=== PATIENT | male | born 1950 | race Two or more races ===

== ENCOUNTER 2021-05-13 10:43 | Outpatient (REF) | payer OTHER, SELFPAY ==
--- NOTE | 2021-05-13 10:48 | MHC.AU.P13 ---
Hearing Instrument Problem Date of Visit: 05/13/21 Right Ear: Bioinformatics Team Member: Phonak Model: AUDEO M50-R Serial Number: [id number] Repair Warranty: 07/02/2022 Loss and Damage Warranty: 07/02/2022 Battery Size: Rechargeable Color: GRAPHITE GILMORE Any Commodity Buyer: 2M Type of Dome: SMALL OPEN Type of Wax Guard: CERUSHIELD Dispensed By: [facility] Date of Fittin04/20/2019 Left Ear: Bioinformatics Team Member: Phonak Model: AUDEO M50-R Serial Number: [id number] Repair Warranty: 07/02/2022 Loss and Damage Warranty: 07/02/2022 Battery Size: Rechargeable Color: GRAPHITE GILMORE Any Commodity Buyer: 2M Type of Dome: SMALL OPEN Type of Wax Guard: CERUSHIELD Dispensed By: [facility] Date of Fittin04/20/2019 Follow-Up Summary: Aids dropped off - reported static/not working properly. Aids not charging properly in office. Both aids sent to [employer] for in warranty repairs - patient case in repair drawer. Call when in. Recommendations: Recommendations: Patient will be contacted when materials have arrived. Diagnosis Code(s): Primary Diagnosis: H90.3 Bilateral Sensorineural Hearing Loss Signature: Provider: JONAH Reddy-HIS
== END 2021-05-13 10:44 | disposition home or self-care (01) ==
LOC: HO.HAP 10:43
PROVIDERS: Visit Provider Internal Medicine
DX: Z13.89 Encounter for screening for other disorder (principal)

== ENCOUNTER 2021-06-17 10:13 | Outpatient (REF) | payer OTHER, SELFPAY ==
[2021-06-17 10:33] LABS: MANUAL DIFF FLAG NO
[2021-06-17 10:43] LABS: Basophils Absolute Auto 0.1 X10*3/uL (0.0-0.2); Mean Platelet Volume 10.8 fL (9.4-12.4)
[2021-06-17 10:53] LABS: Eosinophils Absolute Auto 0.7 X10*3/uL (0.0-0.4); Hematocrit 35.9 % (42.0-52.0); Hemoglobin 11.6 g/dl (14.0-18.0); Imm Gran Abs Auto 0.01 X10*3/uL (0.00-0.03); Imm Gran Pct Auto 0.2 % (0.0-0.4); Lymphocytes Absolute Auto 1.9 X10*3/uL (1.2-4.9); Lymphocytes Percent Auto 31.1 % (20-40); Mean Corpuscular HGB Conc 32.3 g/dl (31.0-36.0); Mean Corpuscular Hemoglobin 27.7 pg (27.0-33.0); Mean Corpuscular Volume 85.7 fL (80.0-98.0); Monocytes Absolute Auto 0.6 X10*3/uL (0.1-1.2); Monocytes Percent Auto 10.4 % (2-11); Neutrophils Absolute Auto 2.9 x10*3/uL (2.0-8.3); Neutrophils Percent Auto 46.3 % (45-73); Platelet Count 207 X10*3/uL (160-400); Red Blood Count 4.19 X10*6/uL (4.60-5.80); Red Cell Distribution Width 14.8 % (11.0-16.0); White Blood Count 6.2 X10*3/uL (4.8-10.8)
[2021-06-17 11:21] LABS: Alanine Aminotransferase 30 U/L (0-40); Albumin Level 3.9 g/dL (3.5-5.0); Alkaline Phosphatase 70 U/L (39-117); Anion Gap 11 (12-20); Aspartate Amino Transferase 35 U/L (5-37); Blood Urea Nitrogen 17 mg/dL (9-16); Calcium 9.2 mg/dL (8.4-10.2); Carbon Dioxide 30 mmol/L (22-29); Chloride 107 mmol/L (96-108); Cholesterol 159 mg/dL; Estimated Glomerular Filt Rate > 60; Glucose Random 100 mg/dL (60-115); HDL Cholesterol 43 mg/dL; LDL Cholesterol Calculated 101 mg/dl; Potassium 4.8 mmol/L (3.3-5.1); Sodium 143 mmol/L (135-145); Total Protein 7.2 g/dL (6.5-8.0); Triglycerides 76 mg/dL
[2021-06-17 11:40] LABS: ~HepC Num1 0.29 S/CO (0.00-0.79); ~Hepatitis C Antibody Nonreactive (Nonreactive)
[2021-06-17 11:42] LABS: HBS Num1 0.35 mIU/mL (0-7.99); ~Hepatitis B Surface Antibody NONREACTIVE (Nonreactive)
[2021-06-17 11:51] LABS: HBc Num1 0.12 S/CO (0.00-0.79); HBsAGNum1 0.15 S/CO (0.00-0.99); Hepatitis B Core Antibody Nonreactive (Nonreactive); Hepatitis B Surface Antigen Negative (Negative)
== END 2021-06-17 10:14 | disposition home or self-care (01) ==
LOC: HO.LAB 10:13
PROVIDERS: PCP Internal Medicine; Visit Provider Internal Medicine
DX: C18.9 Malignant neoplasm of colon, unspecified (principal); E66.01 Morbid (severe) obesity due to excess calories; Z68.36 Body mass index [BMI] 36.0-36.9, adult; K70.30 Alcoholic cirrhosis of liver without ascites
CPT/HCPCS: 36415; 80053; 80061; 85025; 86704; 86706; 86803; 87340

== ENCOUNTER 2021-06-24 10:59 | Outpatient (REF) | payer OTHER, SELFPAY ==
--- NOTE | 2021-06-26 08:37 | MHC.AU.HFU ---
Hearing Instrument Follow-Up- Binaural Date of Visit: 06/24/21 Right Ear: Inletter: Phonak Model: AUDEO M50-R Serial Number: [id number] Repair Warranty: 07/02/2022 Loss and Damage Warranty: 07/02/2022 Battery Size: Rechargeable Color: GRAPHITE GILMORE Vibrator Equipment Tester: 2M Type of Dome: SMALL OPEN Type of Wax Guard: CERUSHIELD Dispensed By: [facility] Date of Fittin04/20/2019 Left Ear: Inletter: Phonak Model: AUDEO M50-R Serial Number: [id number] Repair Warranty: 07/02/2022 Loss and Damage Warranty: 07/02/2022 Battery Size: Rechargeable Color: GRAPHITE GILMORE Vibrator Equipment Tester: 2M Type of Dome: SMALL OPEN Type of Wax Guard: CERUSHIELD Dispensed By: [facility] Date of Fittin04/20/2019 Follow-Up Summary: Patient arrived to burr picker his repaired hearing aids. He reports they sound better after repair. Patient got a new phone since they went out for repair, but he decided he would rather keep things simple and not pair them to the phone. His new phone is a flip phone, and it is unlikely that it is compatible. He reports that the hearing aid manager nicu has been lost. Recommendations: Recommendations: [employer] will be contacted to send a replacement manager nicu. Patient will be contacted when it arrives. Diagnosis Code(s): Primary Diagnosis: H90.3 Bilateral Sensorineural Hearing Loss Signature: Provider: Akira Vieira, DOLORES-A
== END 2021-06-24 11:00 | disposition home or self-care (01) ==
LOC: HO.HAP 10:59
PROVIDERS: Visit Provider Internal Medicine
DX: Z13.89 Encounter for screening for other disorder (principal)

== ENCOUNTER 2021-06-29 12:13 | Emergency (ER) | payer OTHER, SELFPAY ==
[2021-06-29 12:56] VITALS: BP 153/63; PULSE 86; RESP 18; TEMP 36.6; O2SAT 97; BMI 5352.0
[2021-06-29 14:40] LABS: MANUAL DIFF FLAG NO
[2021-06-29 14:42] LABS: Basophils Percent Auto 0.6 % (0-2); Eosinophils Absolute Auto 0.8 X10*3/uL (0.0-0.4); Eosinophils Percent Auto 11.9 % (0-4); Hematocrit 35.3 % (42.0-52.0); Hemoglobin 11.3 g/dl (14.0-18.0); Imm Gran Abs Auto 0.01 X10*3/uL (0.00-0.03); Imm Gran Pct Auto 0.1 % (0.0-0.4); Lymphocytes Absolute Auto 1.9 X10*3/uL (1.2-4.9); Mean Corpuscular Hemoglobin 27.3 pg (27.0-33.0); Mean Corpuscular Volume 85.3 fL (80.0-98.0); Mean Platelet Volume 10.4 fL (9.4-12.4); Monocytes Absolute Auto 0.7 X10*3/uL (0.1-1.2); Monocytes Percent Auto 10.9 % (2-11); Neutrophils Absolute Auto 3.3 x10*3/uL (2.0-8.3); Neutrophils Percent Auto 48.5 % (45-73); Platelet Count 210 X10*3/uL (160-400); Red Blood Count 4.14 X10*6/uL (4.60-5.80); White Blood Count 6.8 X10*3/uL (4.8-10.8)
[2021-06-29 14:59] LABS: Anion Gap 11 (12-20); Blood Urea Nitrogen 19 mg/dL (9-16); Calcium 9.3 mg/dL (8.4-10.2); Carbon Dioxide 27 mmol/L (22-29); Chloride 108 mmol/L (96-108); Creatinine Clr Calc Pharmacy -3.9; Estimated Glomerular Filt Rate 52; Glucose Random 73 mg/dL (60-115); Potassium 4.1 mmol/L (3.3-5.1); Sodium 142 mmol/L (135-145)
--- NOTE | 2021-06-29 17:26 | ED.SKABFB ---
HPI - Skin/Abscess/Foreign Bdy General Chief complaint: Skin/Abscess/Foreign Body Stated complaint: Infection on leg Time Seen by Provider: 06/29/21 17:20 Source: patient, family and print graphic designer Mode of arrival: ambulatory Limitations: language barrier History of Present Illness HPI narrative: 70 yo male with history of gout, HTN, GERD, arthritis here with complaints of left lower leg swelling, redness for several weeks. The patient tells me that he initially had an abrasion to the left lower leg from his compression stockings taking into his leg. He then started itching of the leg and this caused some additional abrasions. He was started on doxycycline on June 18 for a 10 day course. He then was seen at urgent care on June 27 and started on Bactrim and cephalexin. The patient tells me he has taken 5 doses of Bactrim. Unfortunately his cephalexin was not available the pharmacy and he has not started this yet. He denies any fevers or chills. He is here because he feels like the rash is unchanged. He denies any fevers, chills, pain to the leg. Related Data Previous Rx's Medication Instructions Recorded cephalexin 500 mg capsule 500 mg PO TID #21 cap 06/29/21 Allergies Allergy/AdvReac Type Severity Reaction Status Date / Time No Known Allergies Allergy Verified 06/29/21 12:55 Review of Systems Review of Systems: Yes all other systems are reviewed and are negative Constitutional: Constitutional: Reports no additional constitutional complaints, Denies body ache(s), Denies chills, Denies fever(s), Denies headache(s) and Denies weakness Eyes: Eyes: Reports no additional eye complaints and Denies change in vision ENT: Reports system reviewed and no additional complaints, except as documented, Denies dizziness, Denies headache(s), Denies nasal congestion, Denies nasal discharge and Denies neck pain Cardiovascular: Cardiovascular: Reports no additional cardiovascular complaints, Denies chest pain, Reports leg edema and Denies dyspnea Respiratory: Respiratory: Reports no additional respiratory complaints, Denies cough and Denies dyspnea Gastrointestinal: Gastrointestinal: Reports no additional gastrointestinal complaints, Denies abdominal pain, Denies diarrhea, Denies nausea and Denies vomiting Genitourinary: Genitourinary: Denies urinary incontinence Musculoskeletal: Musculoskeletal: Reports no additional musculoskeletal complaints, Denies back pain, Denies arthralgias, Denies joint swelling, Denies neck pain, Denies numbness and Denies tingling Integumentary/Breasts: Skin/Breast: Reports system reviewed and no additional complaints, except as docu and Denies rash Neurologic: Reports system reviewed and no additional complaints, except as documented, Denies Abnormal speech present, Denies dizziness, Denies headache(s), Denies numbness, Denies tingling and Denies weakness PMF Past Medical History Attestation statement: The following information was validated with the patient. Source: old records reviewed and nursing notes reviewed Medical History Arthritis GERD (gastroesophageal reflux disease) Gout HTN (hypertension) Social History Social History Advance Directives: No Advance Directives Information Provided: No Physical Exam Vital Signs: Vital Signs: Last Vital Signs Temp 97.8 F 06/29/21 12:56 Pulse 86 06/29/21 12:56 Resp 18 06/29/21 12:56 BP 153/63 H 06/29/21 12:56 Pulse Ox 97 06/29/21 12:56 BMI result Body Mass Index 5352.0 Const: General: cooperative, healthy appearing, comfortable and no acute distress Orientation/consciousness: patient oriented x3 Limitations: no limitations HENMT: Head: Yes normal to inspection Ears: hearing grossly normal bilaterally General nose exam: Normal external nose present Face and sinus: Yes normal facial exam Mouth: Normal oral and palatal mucosa present Throat: Yes posterior oropharynx normal Eyes: General: appearance normal, both eyes and all related structures Pupils: Equal, round and reactive pupils present Neck: Neck: Yes normal visual inspection Chest: Chest palpation & inspection: normal inspection of the chest Resp: Effort & Inspection: normal respiratory effort Auscultation: clear to auscultation bilaterally Cardio: Rate: regular rate Rhythm: regular rhythm Peripheral pulses: Peripheral pulses 2+ throughout GI: Inspection: Yes normal to inspection Palpation (GI): Soft to palpation and nontender Auscultation: normal bowel sounds Back/Spine/Pelvis: Thoracic/Lumbar Spine: thoracic and lumbar spine normal to inspection Skin: General skin exam: no rashes or lesions noted Neuro: General: patient oriented x3, no focal motor deficits and normal sensation to monofilament Cranial nerves: Yes Equal, round and reactive pupils present Cognition (Neuro): normal cognition Speech: No Abnormal speech present Gait exam (Neuro): Normal gait present Motor exam (neuro): 5/5 motor strength present throughout Extrem: Other: General: Yes normal to inspection Course Course Course Narrative: 70 yo male here with LLE cellulitis currently on Bactrim. Patient is here because he feels like the cellulitis is not improved. He has only taken 5 doses. He denies any pain or fevers or chills. He was supposed to also to start taking cephalexin but he tells me he had problems taking this up at the pharmacy. I looked at cellulitis. It is mild. There is no calf tenderness or swelling of the calf. The cellulitis is not circumferential. There is no fever or leukocytosis. I recommended the patient start cephalexin. We discussed wound care at home with topical mupirocin seen and dressings. Reviewed worrisome signs and symptoms of when to return to the emergency department. Comfortable discharge home. MDM - Skin/Abscess/Foreign Bdy Medical Records Attestation: I reviewed the patient's medical records. Lab Data Attestation: I reviewed the patient's lab results. Result diagrams: 06/29/21 14:32 06/29/21 14:32 Labs: Lab Results 06/29/21 06/29/21 Range/Units 14:32 14:32 WBC 6.8 (4.8-10.8) X10*3/uL RBC 4.14 L (4.60-5.80) X10*6/uL Hgb 11.3 L (14.0-18.0) g/dl Hct 35.3 L (42.0-52.0) % MCV 85.3 (80.0-98.0) fL MCH 27.3 (27.0-33.0) pg MCHC 32.0 (31.0-36.0) g/dl RDW 15.0 (11.0-16.0) % Plt Count 210 (160-400) X10*3/uL MPV 10.4 (9.4-12.4) fL Immature Gran % (Auto) 0.1 (0.0-0.4) % Neut % (Auto) 48.5 (45-73) % Lymph % (Auto) 28.0 (20-40) % [place] % (Auto) 10.9 (2-11) % Eos % (Auto) 11.9 H (0-4) % Baso % (Auto) 0.6 (0-2) % Lymph # (Auto) 1.9 (1.2-4.9) X10*3/uL [place] # (Auto) 0.7 (0.1-1.2) X10*3/uL Eos # (Auto) 0.8 H (0.0-0.4) X10*3/uL Baso # (Auto) 0.0 (0.0-0.2) X10*3/uL Abs Immat Gran (auto) 0.01 (0.00-0.03) X10*3/uL Absolute Neuts (auto) 3.3 (2.0-8.3) x10*3/uL Absolute Nucleated RBC 0.000 (0.0-0.012) X10*3/uL Nucleated RBC % (auto) 0.0 (0.0-0.2) /100WBC Sodium 142 (135-145) mmol/L Potassium 4.1 (3.3-5.1) mmol/L Chloride 108 (96-108) mmol/L Carbon Dioxide 27 (22-29) mmol/L Anion Gap 11 L (12-20) BUN 19 H (9-16) mg/dL Creatinine 1.35 (0.5-1.4) mg/dL Estim Creat Clear Calc -3.9 Estimated GFR 52 Random Glucose 73 (60-115) mg/dL Calcium 9.3 (8.4-10.2) mg/dL Discharge Plan Discharge Clinical Impression: Cellulitis Patient Disposition: Home, Self-Care Instructions: Cellulitis (ED) Additional Instructions: Change dressing daily with topical antibiotic ointment Start cephelexin tomorrow. Continue Septra as discussed Return for increasing redness, swelling, fever >100.4 Prescriptions: New cephalexin 500 mg capsule 500 mg PO TID Qty: 21 RF: 0 Referrals: Atif Sanchez MD [Primary Care Provider] - 2 days Interventions: ED Discharge Assessment Last Done: 06/29/21 17:59 Discharge Date/Time: 06/29/21 17:59 Print Language: Mongolian
[2021-06-29] MEDS: Bacitracin Oint 14 GM TUBE 1 APPL TOPICAL (17:49)
[2021-06-29] MEDS: cephALEXin 500 MG CAPSULE PO (17:49)
== END 2021-06-29 17:59 | disposition home or self-care (01) ==
PROVIDERS: Emergency Provider Emergency Medicine; PCP Internal Medicine
DX: L03.116 Cellulitis of left lower limb (principal); I10 Essential (primary) hypertension; Z87.891 Personal history of nicotine dependence
CPT/HCPCS: 36415; 80048; 85025; 99283

== ENCOUNTER 2021-07-03 06:51 | Emergency (ER) | payer OTHER, SELFPAY ==
[2021-07-03 07:23] VITALS: BP 131/60; PULSE 85; RESP 16; TEMP 36.7; O2SAT 98; BMI 37.8
--- NOTE | 2021-07-03 07:59 | ED_ITS ---
HPI - General Adult General Chief complaint: Wound/Laceration Stated complaint: l leg infection Time Seen by Provider: 07/03/21 07:56 Source: patient Limitations: no limitations History of Present Illness HPI narrative: This is a 70-year-old male who complains of an area of infection to his left medial leg. This was 1st noted last month and the patient was initially treated with doxycycline for 10 days. He was then treated with Bactrim and Keflex. Skin issue it originally begun with some abrasions to the area after the patient had worn compression stockings. Patient was seen here on June 29 and photograph of lesion is present in the record. The patient had been advised to take the Keflex for the 10 days, as he had not been able to start taking it yet, also use topical antibiotic ointment. The patient states that the rash is not any better and has been weeping some. The patient denies any fever. He denies any calf or foot swelling. Patient denies any history of diabetes. Related Data Previous Rx's Medication Instructions Recorded cephalexin 500 mg capsule 500 mg PO TID #21 cap 06/29/21 miconazole nitrate 2 % topical 1 appl TOPICAL BID 10 Days #42.5 g 07/03/21 cream (Antifungal Cream (miconazole)) sulfamethoxazole 800 1 tab PO BID #14 tab 07/03/21 mg-trimethoprim 160 mg tablet (Bactrim DS) triamcinolone acetonide 0.1 % 1 appl TOPICAL BID 7 Days #30 g 07/03/21 topical cream Allergies Allergy/AdvReac Type Severity Reaction Status Date / Time No Known Allergies Allergy Verified 06/29/21 12:55 Review of Systems Constitutional: Constitutional: Denies fever(s) Cardiovascular: Cardiovascular: Denies dyspnea Respiratory: Respiratory: Denies cough and Denies dyspnea Gastrointestinal: Gastrointestinal: Denies abdominal pain and Denies vomiting Integumentary/Breasts: Skin/Breast: Denies swelling and Reports rash Neurologic: Denies Sensory deficit (Neuro) [facility] Past Medical History Medical History Arthritis GERD (gastroesophageal reflux disease) Gout HTN (hypertension) Social History Social History Alcohol intake: unknown Patient Tobacco Use Status: Tobacco use Unknown Use of substances other than those prescribed or required for medical reasons: Unknown Advance Directives: No Advance Directives Information Provided: No Physical Exam Vital Signs: Vital Signs: Last Vital Signs Temp 98.0 F 07/03/21 07:23 Pulse 85 07/03/21 07:23 Resp 16 07/03/21 07:23 BP 131/60 07/03/21 07:23 Pulse Ox 98 07/03/21 07:23 BMI result Body Mass Index 37.8 Const: General: cooperative, no acute distress and alert Orientation/consciousness: patient oriented x3 HENMT: Head: Yes normal to inspection Eyes: General: appearance normal, both eyes and all related structures Eyelids: Yes eyelids normal Conjunctivae: conjunctivae normal Pupils: Equal, round and reactive pupils present Neck: Neck: Yes normal visual inspection and Yes supple Chest: Chest palpation & inspection: normal inspection of the chest Resp: Effort & Inspection: normal respiratory effort Auscultation: clear to auscultation bilaterally Cardio: Rate: regular rate Rhythm: regular rhythm Heart sounds: S1 normal heart sound present, S2 normal heart sound present, no gallops, no murmurs and no rubs GI: Palpation (GI): Soft to palpation, nontender and Other GI palpation fi ndings present (Non-distended) Auscultation: normal bowel sounds Skin: Other: Rectangular area confluent erythema surrounded by mild blotchy erythema to the left medial leg. Appears cellulitic, but there may be a component of contact dermatitis given the rectangular shape. Some weeping evident. No calf swelling or tenderness, no pedal edema General skin exam: no rashes or lesions noted Neuro: General: patient oriented x3, no focal motor deficits and CN's II-XI intact bilaterally Cranial nerves: Yes Equal, round and reactive pupils present Cognition (Neuro): normal cognition Motor exam (neuro): 5/5 motor strength present throughout Sensory Exam: No Sensory deficit (Neuro) Extrem: General: Yes normal to inspection and Yes no pedal edema Psych: Appearance: grossly normal Affect: normal affect Medical Decision Making MDM Narrative Medical decision making narrative: Patient with persistent erythema to his left lower leg, and a rectangular pattern, started when he wore compression stockings, began as an abrasion. Patient was wearing a very moist dressing, which may be from weeping of rash, although I did not see any full eye or fluid coming from the wound once it was undressed. Given that this rash has not responded to antibiotics and given its shape, which is rectangular, it suggests possible contact dermatitis. The moisture also might suggest that the patient has an element of fungal infection. Will add Lotrimin and triamcinolone creams and continue antibiotics, recommended the patient keep the area uncovered and as dry as possible. Area of cellulitis has not dramatically changed since his last visit, per the photograph from June 29. No fever. Patient does not appear ill Discharge Plan Discharge Clinical Impression: Cellulitis, Fungal dermatitis Patient Disposition: Home, Self-Care Instructions: Cellulitis (ED), Skin Yeast Infection (ED) Additional Instructions: Try to keep the area of rash uncovered so that it can dry out. Return for any worsened symptoms such as increased redness, fever. Both the primary care physician for re-evaluation in 4-5 days. Start Bactrim again and take for 7 days. Use the anti fungal cream and steroid cream as prescribed Prescriptions: New miconazole nitrate [Antifungal Cream (miconazole)] 2 % cream 1 appl topical BID 10 Days Qty: 42.5 RF: 0 triamcinolone acetonide 0.1 % cream 1 appl topical BID 7 Days Qty: 30 RF: 1 sulfamethoxazole-trimethoprim [Bactrim DS] 800-160 mg tablet 1 tab PO BID Qty: 14 RF: 0 No Action cephalexin 500 mg capsule 500 mg PO TID Qty: 21 RF: 0 Interventions: ED Discharge Assessment Last Done: 07/03/21 08:32 Discharge Date/Time: 07/03/21 08:32
== END 2021-07-03 08:32 | disposition home or self-care (01) ==
PROVIDERS: Emergency Provider Emergency Medicine; PCP Internal Medicine
DX: L03.116 Cellulitis of left lower limb (principal); B36.9 Superficial mycosis, unspecified; Z79.899 Other long term (current) drug therapy
CPT/HCPCS: 99283

== ENCOUNTER 2021-07-08 10:22 | Outpatient (REF) | payer OTHER, SELFPAY | END 2021-07-08 10:23 | disposition home or self-care (01) | LOC: HO.HAP 10:22 | PROVIDERS: Visit Provider Internal Medicine | DX: Z13.89 Encounter for screening for other disorder (principal) ==

== ENCOUNTER 2021-07-23 08:02 | Outpatient (REF) | payer OTHER, SELFPAY ==
[2021-07-23 08:19] LABS: MANUAL DIFF FLAG NO
[2021-07-23 08:47] LABS: Basophils Percent Auto 0.5 % (0-2); Eosinophils Absolute Auto 0.7 X10*3/uL (0.0-0.4); Eosinophils Percent Auto 11.7 % (0-4); Hematocrit 35.4 % (42.0-52.0); Hemoglobin 11.3 g/dl (14.0-18.0); Imm Gran Abs Auto 0.02 X10*3/uL (0.00-0.03); Imm Gran Pct Auto 0.3 % (0.0-0.4); Lymphocytes Absolute Auto 1.9 X10*3/uL (1.2-4.9); Lymphocytes Percent Auto 33.2 % (20-40); Mean Corpuscular HGB Conc 31.9 g/dl (31.0-36.0); Mean Corpuscular Hemoglobin 27.3 pg (27.0-33.0); Mean Corpuscular Volume 85.5 fL (80.0-98.0); Mean Platelet Volume 10.5 fL (9.4-12.4); Monocytes Absolute Auto 0.6 X10*3/uL (0.1-1.2); Monocytes Percent Auto 10.9 % (2-11); Neutrophils Absolute Auto 2.5 x10*3/uL (2.0-8.3); Neutrophils Percent Auto 43.4 % (45-73); Platelet Count 196 X10*3/uL (160-400); Red Blood Count 4.14 X10*6/uL (4.60-5.80); Red Cell Distribution Width 14.7 % (11.0-16.0); White Blood Count 5.8 X10*3/uL (4.8-10.8)
[2021-07-23 09:21] LABS: Alanine Aminotransferase 40 U/L (0-40); Albumin Level 3.8 g/dL (3.5-5.0); Alkaline Phosphatase 74 U/L (39-117); Anion Gap 9 (12-20); Aspartate Amino Transferase 35 U/L (5-37); Bilirubin Total 0.9 mg/dL (0.0-1.0); Blood Urea Nitrogen 21 mg/dL (9-16); Calcium 9.3 mg/dL (8.4-10.2); Carbon Dioxide 31 mmol/L (22-29); Chloride 107 mmol/L (96-108); Cholesterol 158 mg/dL; Estimated Glomerular Filt Rate > 60; Glucose Fasting 98 mg/dL (60-99); HDL Cholesterol 46 mg/dL; LDL Cholesterol Calculated 100 mg/dl; Potassium 4.4 mmol/L (3.3-5.1); Sodium 143 mmol/L (135-145); Total Protein 6.9 g/dL (6.5-8.0); Triglycerides 64 mg/dL
[2021-07-23 09:35] LABS: HBS Num1 3.03 mIU/mL (0-7.99); HBsAGNum1 0.23 S/CO (0.00-0.99); Hepatitis B Surface Antigen Negative (Negative); ~HepC Num1 0.31 S/CO (0.00-0.79); ~Hepatitis B Surface Antibody NONREACTIVE (Nonreactive); ~Hepatitis C Antibody Nonreactive (Nonreactive)
[2021-07-23 09:43] LABS: HBc Num1 0.12 S/CO (0.00-0.79); Hepatitis B Core Antibody Nonreactive (Nonreactive)
[2021-07-23 09:44] LABS: Ferritin 10 ng/mL (20-250)
[2021-07-23 09:47] LABS: Folate > 20.0 ng/mL (> or = 4.0); Vitamin B12 558 pg/mL (200-900)
== END 2021-07-23 08:03 | disposition home or self-care (01) ==
LOC: HO.LAB 08:02
PROVIDERS: PCP Nurse Practitioner Family; Visit Provider Nurse Practitioner Family
DX: Z12.5 Encounter for screening for malignant neoplasm of prostate (principal); F10.11 Alcohol abuse, in remission; I10 Essential (primary) hypertension; E78.00 Pure hypercholesterolemia, unspecified; K76.9 Liver disease, unspecified
CPT/HCPCS: 36415; 80053; 80061; 82607; 82728; 82746; 84153; 85025; 86704; 86706; 86803; 87340

== ENCOUNTER 2021-11-18 09:11 | Outpatient (REF) | payer OTHER, SELFPAY ==
[2021-11-18 09:29] LABS: MANUAL DIFF FLAG NO
[2021-11-18 09:59] LABS: INTERNATIONAL NORM RATIO 1.1 (0.9-1.1); Prothrombin Time 12.2 SEC (9.9-13.0)
[2021-11-18 10:06] LABS: Basophils Absolute Auto 0.1 X10*3/uL (0.0-0.2); Basophils Percent Auto 0.8 % (0-2); Eosinophils Absolute Auto 0.5 X10*3/uL (0.0-0.4); Eosinophils Percent Auto 8.1 % (0-4); Hematocrit 35.4 % (42.0-52.0); Hemoglobin 11.2 g/dl (14.0-18.0); Imm Gran Abs Auto 0.01 X10*3/uL (0.00-0.03); Imm Gran Pct Auto 0.2 % (0.0-0.4); Lymphocytes Absolute Auto 2.2 X10*3/uL (1.2-4.9); Lymphocytes Percent Auto 32.8 % (20-40); Mean Corpuscular HGB Conc 31.6 g/dl (31.0-36.0); Mean Corpuscular Hemoglobin 26.7 pg (27.0-33.0); Mean Corpuscular Volume 84.3 fL (80.0-98.0); Mean Platelet Volume 10.9 fL (9.4-12.4); Monocytes Absolute Auto 0.7 X10*3/uL (0.1-1.2); Monocytes Percent Auto 9.8 % (2-11); Neutrophils Absolute Auto 3.2 x10*3/uL (2.0-8.3); Neutrophils Percent Auto 48.3 % (45-73); Platelet Count 232 X10*3/uL (160-400); Red Cell Distribution Width 15.1 % (11.0-16.0); White Blood Count 6.7 X10*3/uL (4.8-10.8)
[2021-11-18 10:19] LABS: Alanine Aminotransferase 69 U/L (0-40); Albumin Level 3.7 g/dL (3.5-5.0); Alkaline Phosphatase 101 U/L (39-117); Aspartate Amino Transferase 54 U/L (5-37); Bilirubin Direct 0.3 mg/dL (0.0-0.5); Bilirubin Total 0.8 mg/dL (0.0-1.0); Total Protein 7.1 g/dL (6.5-8.0)
[2021-11-20 13:32] LABS: Alpha Fetoprotein 1.7 ng/mL (<6.1)
== END 2021-11-18 09:12 | disposition home or self-care (01) ==
LOC: HO.LAB 09:11
PROVIDERS: PCP Internal Medicine; Visit Provider Internal Medicine
DX: K70.30 Alcoholic cirrhosis of liver without ascites (principal)
CPT/HCPCS: 36415; 80076; 82105; 85025; 85610

== ENCOUNTER 2021-11-25 07:51 | Outpatient (REF) | payer OTHER, SELFPAY ==
--- NOTE | ~2021-11-25 | US_ITS ---
EXAMINATION: US ABDOMEN COMPLETE CLINICAL INFORMATION: Cirrhosis. COMPARISON: None TECHNIQUE: Real-time imaging of the abdominal viscera. FINDINGS: PANCREAS: Not well visualized due to bowel gas ABDOMINAL AORTA: Not well visualized due to bowel gas INFERIOR VENA CAVA: Not well visualized due to bowel gas LIVER: The liver has a irregular scalloped contour suggestive of cirrhosis. Liver echotexture is normal. There is an ill-defined hyperechoic area in the periportal region with geographic margins, question representing fatty infiltration. There is no biliary duct dilatation. GALLBLADDER: Gallbladder is normal in size. There is a gallstone in the gallbladder. There is adenomyomatosis of the gallbladder wall. COMMON BILE DUCT: Normal in caliber measuring 0.2 cm in diameter. RIGHT KIDNEY: There is a 8 x 6 x 6 mm cyst exophytic to the midpole. No renal stone.. No hydronephrosis. The kidney measures 11.6 cm in maximum dimension. LEFT KIDNEY: There is a 3 x 6 mm stone in the midpole. No hydronephrosis or focal parenchymal lesions. The kidney measures 12.1 cm in maximum dimension. SPLEEN: Normal. The spleen measures 9.7 cm in maximum dimension. FREE FLUID: None. US/US abdomen complete IMPRESSION: Cirrhotic-appearing liver. Ill-defined echogenic area in the periportal region with geographic margins questionable for focal fatty infiltration. Confirmation with liver MRI should be considered clinically indicated. Gallstone and adenomyomatosis of the gallbladder wall. Right renal cyst. Small left renal stone. Nonvisualization of the pancreas, aorta and IVC.
== END 2021-11-25 07:52 | disposition home or self-care (01) ==
LOC: HO.US 07:51
PROVIDERS: PCP Internal Medicine; Visit Provider Internal Medicine
DX: K70.30 Alcoholic cirrhosis of liver without ascites (principal)
CPT/HCPCS: 76700

== ENCOUNTER 2022-01-06 06:03 | Day surgery (SDC) | payer OTHER, SELFPAY ==
[2021-12-31 11:33] VITALS: BMI 37.2
--- NOTE | 2022-01-05 11:42 | HO.ANESPROP2 ---
HPI - Anesthesia Eval Consult details Narrative: 71yo F for Colonoscopy PMFSH Active Problems Active Problems: All Active Problems (Updated 12/31/21 @ 11:04 by Zahira Mcarthur RN) Encounter to establish care (Acute) Chronic liver disease (Acute) Prostate cancer screening (Acute) Colon cancer screening (Acute) History of colon cancer (Acute) Fungal dermatitis (Acute) History of smoking (Acute) Gout (Acute) GERD (gastroesophageal reflux disease) (Acute) HTN (hypertension) (Acute) Past Medical History Medical History Arthritis Cirrhosis History of colon cancer PUD (peptic ulcer disease) Family History Family History Mother No problems noted. Father Prostate cancer Family/Other Mental health disorder Substance use disorder Surgical History Surgical History History of colon surgery History of gastric ulcer History of tooth extraction Hx of colonoscopy Social History Social History Housing: House Alcohol intake: former Patient Tobacco Use Status: Former Tobacco user Tobacco use type: Cigarette e-Cigarette/Vaping Use: Never Used Second Hand Smoke Exposure: No Use of substances other than those prescribed or required for medical reasons: No Are you DNR?: No Advance Directives: No Advance Directives Information Provided: Yes service: No Current occupational status: retired Cognitive needs: Yes Hearing needs: No Vision needs: Yes Meds Allergies Allergy/AdvReac Type Severity Reaction Status Date / Time No Known Allergies Allergy Verified 11/04/21 10:54 Exam Exam Date and Time: January 05, 2022 1142 Height,Weight and Vital Signs: Height 5 ft 4 in Weight 98.43 kg Pertinent Lab Results Pertinent Lab Results: Laboratory Tests 07/23/21 11/18/21 08:11 09:20 WBC 6.7 Hgb 11.2 L Hct 35.4 L Plt Count 232 Sodium 143 Potassium 4.4 Chloride 107 Carbon Dioxide 31 H BUN 21 H Creatinine 1.08 Laboratory Tests 11/18/21 09:20 Total Bilirubin 0.8 Direct Bilirubin 0.3 AST 54 H ALT 69 H Alkaline Phosphatase 101 D Total Protein 7.1 Albumin 3.7 Narrative Narrative: US abdomen complete 11/2021 IMPRESSION: Cirrhotic-appearing liver. Ill-defined echogenic area in the periportal region with geographic margins questionable for focal fatty infiltration. Confirmation with liver MRI should be considered clinically indicated. Gallstone and adenomyomatosis of the gallbladder wall. Right renal cyst. Small left renal stone. Nonvisualization of the pancreas, aorta and IVC. Assessment and Plan Assessment Anesthesia Assessment: Chart Reviewed
[2022-01-06 06:20] VITALS: BMI 36.0
[2022-01-06 06:30] VITALS: BP 127/69; PULSE 61; RESP 16; TEMP 36.3; O2SAT 99
[2022-01-06] MEDS: Lactated Ringers 1,000 ML 100 ML IVCONT (06:39)
--- NOTE | 2022-01-06 07:14 | P.CONAN_ITS ---
[facility] Active Problems Active Problems: All Active Problems (Updated 12/31/21 @ 11:04 by Zahira Mcarthur RN) Encounter to establish care (Acute) Chronic liver disease (Acute) Prostate cancer screening (Acute) Colon cancer screening (Acute) History of colon cancer (Acute) Fungal dermatitis (Acute) History of smoking (Acute) Gout (Acute) GERD (gastroesophageal reflux disease) (Acute) HTN (hypertension) (Acute) Past Medical History Medical History Arthritis Cirrhosis History of colon cancer PUD (peptic ulcer disease) Family History Family History Mother No problems noted. Father Prostate cancer Family/Other Mental health disorder Substance use disorder Surgical History Surgical History History of colon surgery History of gastric ulcer History of tooth extraction Hx of colonoscopy Social History Social History Housing: House Alcohol intake: former Patient Tobacco Use Status: Former Tobacco user Tobacco use type: Cigarette e-Cigarette/Vaping Use: Never Used Second Hand Smoke Exposure: No Use of substances other than those prescribed or required for medical reasons: No Are you DNR?: No Advance Directives: No Advance Directives Information Provided: Yes service: No Current occupational status: retired Cognitive needs: Yes Hearing needs: No Vision needs: Yes Meds Allergies Allergy/AdvReac Type Severity Reaction Status Date / Time No Known Allergies Allergy Verified 11/04/21 10:54 Active Medications: Current Medications Lactated Ringer's (Lr) 1,000 mls @ 100 mls/hr IVCONT .Q10H JAKE Last Admin: 01/06/22 06:39 Dose: 100 mls/hr Sodium Biphosphate/Sodium Phosphate (Sodium Phosphate,Martin-Dibasic 133 Ml Enema) 133 ml AR ONCE PRN PRN Reason: Poor Colonoscopy Prep Results Exam Exam Date and Time: January 06, 2022 0714 Height,Weight and Vital Signs: Height 5 ft 4 in Weight 95.254 kg Last Vital Signs Temp 97.3 F 01/06/22 06:30 Pulse 61 01/06/22 06:30 Resp 16 01/06/22 06:30 BP 127/69 01/06/22 06:30 Pulse Ox 99 01/06/22 06:30 O2 Del Method 01/06/22 06:30 Airway Mallampati Class: IV TM Dist: >3cm Neck ROM: Full Denture: Upper and Lower Heart: rrr Lungs: clear Assessment and Plan Anesthetic Plan Anesthetic Plan: MAC: Disposition: Standard PACU
[2022-01-06 08:25] VITALS: BP 120/67; PULSE 73; RESP 18; TEMP 37.6; O2SAT 98
--- NOTE | 2022-01-06 08:28 | PM.OP ---
Brief Operative Note Date of Service: 01/06/22 Pre-op diagnosis: Screening Post-op diagnosis: other (Diverticulosis) Procedure: Colonoscopy to the cecum Surgeon: Ezio Garcia Anesthesia: MAC Was an Optimization Manager used for this Procedure?: No Estimated blood loss (mL): 0 Pathology: none sent Condition: stable Disposition: PACU
[2022-01-06 08:40] VITALS: BP 144/70; PULSE 73; RESP 18; TEMP 37.2; O2SAT 98
--- NOTE | 2022-01-06 10:09 | OP_ITS ---
SURGEON: Ezio Garcia MD INDICATIONS: The patient presents for followup of colorectal cancer screening and personal history of colon cancer. Full consent has been obtained from him for this, including risks of bleeding and perforation. PREOPERATIVE DIAGNOSIS: POSTOPERATIVE DIAGNOSIS: PROCEDURE PERFORMED: Colonoscopy to the cecum. ESTIMATED BLOOD LOSS: COMPLICATIONS: ANESTHESIA: Monitored anesthesia care. ASSISTANTS: SPECIMENS: PREOPERATIVE DIAGNOSES: Colorectal cancer screening and personal history of colon cancer. POSTOPERATIVE DIAGNOSES: Colorectal cancer screening and personal history of colon cancer, occasional diverticulosis, normal anastomosis, internal hemorrhoids. DESCRIPTION OF PROCEDURE: The patient was placed in the left lateral decubitus position. The digital rectal exam revealed no abnormalities. The Olympus video pediatric colonoscope was entered into the rectum and advanced easily to the cecum. Once in the cecum, I did identify normal-appearing cecal pouch with appendiceal orifice and a normal-appearing ileocecal valve. There was transillumination of light deep in the right lower quadrant. The entire cecum was well visualized and appeared normal. The scope was slowly withdrawn assessing all mucosal surfaces carefully. Preparation was excellent. His anastomosis was seen between 40 and 50 cm. This area appeared normal. I did not visualize any sign of polyps, colitis, nor angiodysplasia. There were occasional diverticula proximal to the anastomosis. In the rectum, scope was retroflexed visualizing small internal hemorrhoids, but no other pathology. The rectal mucosa appeared normal. The scope was straightened and withdrawn from the patient. He tolerated the procedure well and was returned to the recovery area in stable condition. IMPRESSION: 1. Normal anastomosis. 2. Occasional diverticulosis. 3. Internal hemorrhoids. PLAN: Given his history of colon cancer, I would recommend a repeat colonoscopy in 3 years. He was advised to see me in 1 year for followup in regard to his underlying liver disease. The recent ultrasound was consistent with cirrhosis in relation to his previous alcohol, but there was no sign of any liver mass. Laboratories including alpha fetoprotein level, CBC with platelet count, liver profile, and PT with INR were all basically normal other than some very slight abnormalities. This has been discussed with his nephew, Juan Carlos. MD ERNESTO Meehan/ARLEEN / [phone]
== END 2022-01-06 09:20 | disposition home or self-care (01) ==
PROVIDERS: PCP Internal Medicine; Visit Provider Internal Medicine
PROC: 0DJD8ZZ Inspection of Lower Intestinal Tract, Via Natural or Artificial Opening Endoscopic (ICD-10-PCS; CPT 45378; principal; 2022-01-06 07:30)
DX: Z12.11 Encounter for screening for malignant neoplasm of colon (principal); Z85.038 Personal history of other malignant neoplasm of large intestine; Z98.0 Intestinal bypass and anastomosis status; K57.30 Diverticulosis of large intestine without perforation or abscess without bleeding; K64.8 Other hemorrhoids; I10 Essential (primary) hypertension; K70.30 Alcoholic cirrhosis of liver without ascites; F10.11 Alcohol abuse, in remission; Z87.11 Personal history of peptic ulcer disease; Z87.891 Personal history of nicotine dependence
CPT/HCPCS: G0105

== ENCOUNTER 2022-03-30 08:54 | Outpatient (RCR) | payer OTHER, SELFPAY | END 2022-04-02 09:13 | disposition home or self-care (01) | LOC: HO.WCC 08:54 | PROVIDERS: PCP Internal Medicine; Visit Provider Physician Assistant | DX: T25.221D Burn of second degree of right foot, subsequent encounter (principal); I10 Essential (primary) hypertension; T31.0 Burns involving less than 10% of body surface | CPT/HCPCS: 99212 ==

== ENCOUNTER 2022-03-31 09:13 | Outpatient (REF) | payer OTHER, SELFPAY ==
[2022-03-31 09:34] LABS: Hematocrit 37.4 % (42.0-52.0); Hemoglobin 11.8 g/dl (14.0-18.0); Mean Corpuscular HGB Conc 31.6 g/dl (31.0-36.0); Mean Corpuscular Hemoglobin 26.8 pg (27.0-33.0); Mean Corpuscular Volume 84.8 fL (80.0-98.0); Mean Platelet Volume 9.8 fL (9.4-12.4); Platelet Count 201 X10*3/uL (160-400); Red Blood Count 4.41 X10*6/uL (4.60-5.80); Red Cell Distribution Width 15.2 % (11.0-16.0); White Blood Count 6.3 X10*3/uL (4.8-10.8)
[2022-03-31 10:06] LABS: Alanine Aminotransferase 26 U/L (0-40); Alkaline Phosphatase 79 U/L (39-117); Anion Gap 14 (12-20); Aspartate Amino Transferase 33 U/L (5-37); Bilirubin Total 1.1 mg/dL (0.0-1.0); Blood Urea Nitrogen 18 mg/dL (9-16); Carbon Dioxide 28 mmol/L (22-29); Chloride 105 mmol/L (96-108); Cholesterol 183 mg/dL; Estimated Glomerular Filt Rate > 60; Glucose Fasting 100 mg/dL (60-99); HDL Cholesterol 51 mg/dL; LDL Cholesterol Calculated 120 mg/dl; Potassium 4.9 mmol/L (3.3-5.1); Sodium 142 mmol/L (135-145); Total Protein 7.5 g/dL (6.5-8.0); Triglycerides 62 mg/dL
== END 2022-03-31 09:14 | disposition home or self-care (01) ==
LOC: HO.LAB 09:13
PROVIDERS: PCP Internal Medicine; Visit Provider Nurse Practitioner Family
DX: K21.9 Gastro-esophageal reflux disease without esophagitis (principal); K76.9 Liver disease, unspecified; M10.9 Gout, unspecified; E78.00 Pure hypercholesterolemia, unspecified; I10 Essential (primary) hypertension
CPT/HCPCS: 36415; 80053; 80061; 85027

== ENCOUNTER 2022-08-04 09:15 | Outpatient (REF) | payer OTHER, SELFPAY ==
[2022-08-04 09:34] LABS: MANUAL DIFF FLAG NO
[2022-08-04 10:17] LABS: Basophils Absolute Auto 0.1 X10*3/uL (0.0-0.2); Eosinophils Absolute Auto 0.6 X10*3/uL (0.0-0.4); Eosinophils Percent Auto 10.2 % (0-4); Hematocrit 36.2 % (42.0-52.0); Hemoglobin 11.4 g/dl (14.0-18.0); Imm Gran Abs Auto 0.01 X10*3/uL (0.00-0.03); Imm Gran Pct Auto 0.2 % (0.0-0.4); Lymphocytes Percent Auto 32.8 % (20-40); Mean Corpuscular HGB Conc 31.5 g/dl (31.0-36.0); Mean Corpuscular Hemoglobin 26.9 pg (27.0-33.0); Mean Corpuscular Volume 85.4 fL (80.0-98.0); Mean Platelet Volume 10.9 fL (9.4-12.4); Monocytes Absolute Auto 0.7 X10*3/uL (0.1-1.2); Monocytes Percent Auto 11.5 % (2-11); Neutrophils Absolute Auto 2.7 x10*3/uL (2.0-8.3); Neutrophils Percent Auto 44.3 % (45-73); Platelet Count 208 X10*3/uL (160-400); Red Blood Count 4.24 X10*6/uL (4.60-5.80); Red Cell Distribution Width 14.9 % (11.0-16.0)
[2022-08-04 11:19] LABS: Anion Gap 13 (12-20)
[2022-08-04 11:20] LABS: Alanine Aminotransferase 23 U/L (0-40); Albumin Level 3.7 g/dL (3.5-5.0); Alkaline Phosphatase 80 U/L (39-117); Aspartate Amino Transferase 33 U/L (5-37); Bilirubin Total 1.2 mg/dL (0.0-1.0); Blood Urea Nitrogen 16 mg/dL (9-16); Calcium 9.2 mg/dL (8.4-10.2); Carbon Dioxide 28 mmol/L (22-29); Chloride 105 mmol/L (96-108); Cholesterol 171 mg/dL; Estimated Glomerular Filt Rate > 60; Glucose Fasting 89 mg/dL (60-99); HDL Cholesterol 52 mg/dL; Iron 71 mcg/dL (45-160); LDL Cholesterol Calculated 105 mg/dl; Percent Iron Saturation 21 % (15-50); Potassium 4.4 mmol/L (3.3-5.1); Sodium 142 mmol/L (135-145); Total Iron Binding Capacity 336 mcg/dL (228-428); Total Protein 6.9 g/dL (6.5-8.0); Triglycerides 70 mg/dL; Unsaturated Iron Binding 265 ug/dL
== END 2022-08-04 09:16 | disposition home or self-care (01) ==
LOC: HO.LAB 09:15
PROVIDERS: PCP Internal Medicine; Visit Provider Internal Medicine
DX: M10.9 Gout, unspecified (principal); K74.60 Unspecified cirrhosis of liver; D64.9 Anemia, unspecified; E78.5 Hyperlipidemia, unspecified
CPT/HCPCS: 36415; 80053; 80061; 83540; 84550; 85025

== ENCOUNTER 2022-09-10 06:40 | Emergency (ER) | payer OTHER, SELFPAY ==
[2022-09-10 06:54] VITALS: BP 146/68; PULSE 72; RESP 16; TEMP 36.6; O2SAT 97; BMI 35.6
[2022-09-10 06:59] VITALS: PULSE 75; RESP 20; TEMP 36.9; O2SAT 98
--- NOTE | 2022-09-10 07:02 | ED.GENADULT ---
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 The rash is localized in the right thigh. chest and abdomen,he was seen by his the primary care physician he was treated with the p.o. Benadryl and steroid. Onset (ago): week(s) (2) Location: chest, abdomen and lower extremity Radiation: non-radiation Severity: moderate Relieving factors: none Exacerbating factors: none Associated symptoms: rash Related Data Home Medications Medication Instructions Recorded Confirmed diphenhydramine HCl 25 mg capsule 25 mg PO BEDTIME PRN 08/25/22 09/01/22 (Benadryl) hydrocortisone 1 % topical spray 1 appl topical TID PRN 08/25/22 09/01/22 (Anti-Itch (hydrocortisone)) Previous Rx's Medication Instructions Recorded omeprazole 40 mg capsule,delayed 40 mg PO DAILY #90 caps 05/17/22 release colchicine 0.6 mg tablet 0.6 mg PO BID PRN gout attack 5 05/27/22 days #10 tabs folic acid 1 mg tablet 1 mg PO DAILY #90 tabs 07/08/22 losartan 100 mg tablet 100 mg PO DAILY #90 tabs 08/05/22 omega-3 fatty acids 1,000 mg 1,000 mg PO DAILY #90 caps 08/05/22 capsule allopurinol 100 mg tablet 100 mg PO DAILY 90 days #90 tabs 09/01/22 cetirizine 5 mg/5 mL oral solution 10 mg (10 mL) PO DAILY PRN allergy 09/01/22 symptoms 30 days #150 mL pramoxine-calamine 1 %-8 % lotion 1 appl topical TID PRN itching 30 09/01/22 (Caladryl) days #177 mL prednisone 10 mg tablet 10 mg PO DIRECTED 6 days #12 09/01/22 tabs loratadine 10 mg tablet (Claritin) 10 mg PO DAILY #10 tabs 09/10/22 Allergies Allergy/AdvReac Type Severity Reaction Status Date / Time No Known Allergies Allergy Verified 09/01/22 09:52 Review of Systems Constitutional: Constitutional: Reports no additional constitutional complaints Eyes: Eyes: Reports no additional eye complaints ENT: Reports system reviewed and no additional complaints, except as documented Neurologic: Reports system reviewed and no additional complaints, except as documented [facility] Past Medical History Medical History Arthritis Cirrhosis GERD (gastroesophageal reflux disease) Gout History of colon cancer HTN (hypertension) PUD (peptic ulcer disease) Surgical History History of colon surgery History of gastric ulcer History of tooth extraction Hx of colonoscopy Family History Family History Mother No problems noted. Father Prostate cancer Family/Other Mental health disorder Substance use disorder Social History Social History Housing: House Alcohol intake: former Patient Tobacco Use Status: Former Tobacco user Tobacco use type: Cigarette Smoked in Last 30 Days: No e-Cigarette/Vaping Use: Never Used Second Hand Smoke Exposure: No Use of substances other than those prescribed or required for medical reasons: No Advance Directives: Yes Advance Directives Information Provided: Yes Advance Directives on File: No service: No Current occupational status: retired Cognitive needs: Yes Hearing needs: No Vision needs: Yes Physical Exam ED Vital Signs: Vital Signs - 24 hr 09/10/22 06:54 09/10/22 06:59 09/10/22 07:24 Temperature 97.8 F 98.5 F 97.9 F Pulse Rate 72 75 63 Respiratory Rate 16 20 14 Blood Pressure 146/68 H 120/65 Pulse Oximetry 97 98 98 Oxygen Delivery Method Room Air Room Air Room Air BMI result Body Mass Index 35.6 Const General: cooperative Nutritional Appearance: average body habitus Orientation/consciousness: patient oriented x3 HENMT Head: Yes normal to inspection General nose exam: Normal external nose present Face and sinus: Yes normal facial exam Mouth: Normal oral and palatal mucosa present Neck Neck: Yes normal visual inspection, Yes full ROM and Yes no lymphadenopathy Chest Chest palpation & inspection: normal inspection of the chest Resp Effort & Inspection: normal respiratory effort Auscultation: clear to auscultation bilaterally Cardio Jugular venous distension: no JVD Rate: regular rate Rhythm: regular rhythm GI Inspection: Yes normal to inspection Palpation (GI): Soft to palpation, not firm, nontender and no guarding Auscultation: normal bowel sounds Skin Other: Examination the skin shows macular rash in the right thigh chest abdomen no hives noted ,no pustula no vesicles General skin exam: elasticity normal and turgor normal Rashes: rashes noted (as above) Neuro General: patient oriented x3 Course Reevaluation(s) Reevaluation #1: I reexamined the patient in 30 a.m. is feeling much better, labs are reassuring including a CBC, normal sed rate normal chemistry this is unlilikely vasculitis given the fact and the sed rate is normal,no evidence of infection (normal wbc/afebrile). Most likely viral rash Time: 09:37 Medications Administered Discontinued Medications Generic Name Dose Route Start Last Admin Trade Name Freq PRN Reason Stop Dose Admin Dexamethasone Sodium Phosphate 10 mg 09/10/22 07:07 09/10/22 07:40 Dexamethasone Sod Phosphate 10 Mg/Ml Vial IVPUSH 09/10/22 07:08 10 mg ONCE ONE Administration Diphenhydramine HCl 25 mg 09/10/22 07:07 09/10/22 07:40 Diphenhydramine Hcl 50 Mg/Ml Vial IVPUSH 09/10/22 07:08 25 mg ONCE ONE Administration Medical Decision Making Medical Decision Making [facility] Narrative: Patient presented with rash a nontoxic-appearing check CBC /chemistry/ ESR Differential Diagnosis Differential Diagnoses: The differential diagnosis associated with the presentation includes vasculitis/viral rash /allergic reaction Admission/Observation Consideration of admission/observation: Escalation of care including admission/observation considered Lab Data [facility] Lab Attestation statement: I reviewed the patient's lab results. 09/10/22 07:36 09/10/22 07:36 Labs: Lab Results 09/10/22 09/10/22 09/10/22 Range/Units 07:36 07:36 07:36 WBC 6.6 (4.8-10.8) X10*3/uL RBC 4.19 L (4.60-5.80) X10*6/uL Hgb 11.1 L (14.0-18.0) g/dl Hct 35.0 L (42.0-52.0) % MCV 83.5 (80.0-98.0) fL MCH 26.5 L (27.0-33.0) pg MCHC 31.7 (31.0-36.0) g/dl RDW 14.9 (11.0-16.0) % Plt Count 205 (160-400) X10*3/uL MPV 10.8 (9.4-12.4) fL Immature Gran % (Auto) 0.2 (0.0-0.4) % Neut % (Auto) 46.2 (45-73) % Lymph % (Auto) 33.6 (20-40) % Coleman % (Auto) 11.9 H (2-11) % Eos % (Auto) 7.2 H (0-4) % Baso % (Auto) 0.9 (0-2) % Lymph # (Auto) 2.2 (1.2-4.9) X10*3/uL Coleman # (Auto) 0.8 (0.1-1.2) X10*3/uL Eos # (Auto) 0.5 H (0.0-0.4) X10*3/uL Baso # (Auto) 0.1 (0.0-0.2) X10*3/uL Abs Immat Gran (auto) 0.01 (0.00-0.03) X10*3/uL Absolute Neuts (auto) 3.1 (2.0-8.3) x10*3/uL Absolute Nucleated RBC 0.000 (0.0-0.012) X10*3/uL Nucleated RBC % (auto) 0.0 (0.0-0.2) /100WBC ESR 9 (0-15) MM/HR Sodium 143 (135-145) mmol/L Potassium 4.7 (3.3-5.1) mmol/L Chloride 107 (96-108) mmol/L Carbon Dioxide 26 (22-29) mmol/L Anion Gap 15 (12-20) BUN 32 H (9-16) mg/dL Creatinine 0.99 (0.5-1.4) mg/dL Estim Creat Clear Calc 67.8 Estimated GFR > 60 Random Glucose 93 (60-115) mg/dL Calcium 9.1 (8.4-10.2) mg/dL Total Bilirubin 1.3 H (0.0-1.0) mg/dL AST 35 (5-37) U/L ALT 38 (0-40) U/L Alkaline Phosphatase 70 (39-117) U/L Total Protein 6.5 (6.5-8.0) g/dL Albumin 3.5 (3.5-5.0) g/dL Chronic Conditions Patient?s care impacted by: Other (liver disease) Discharge Plan Discharge Clinical Impression: Rash Patient Disposition: Home, Self-Care Instructions: Acute Rash (ED) Additional Instructions: Follow-up with your primary care physician return if you worse fever any concern . Stop the Benadryl take instead claritin which will give you 24 hour coverage and does not make you sleepy like the Benadryl Prescriptions: New loratadine [Claritin] 10 mg tablet 10 mg PO DAILY Qty: 10 0RF No Action omeprazole 40 mg capsule,delayed release(DR/EC) 40 mg PO DAILY Qty: 90 0RF colchicine 0.6 mg tablet 0.6 mg PO BID PRN (Reason: gout attack) 5 Days Qty: 10 1RF folic acid 1 mg tablet 1 mg PO DAILY Qty: 90 0RF losartan 100 mg tablet 100 mg PO DAILY Qty: 90 0RF omega-3 fatty acids 1,000 mg capsule 1,000 mg PO DAILY Qty: 90 0RF Anti-Itch (HC) 1 % aerosol,spray 1 appl topical TID PRN diphenhydramine HCl [Benadryl] 25 mg capsule 25 mg PO BEDTIME PRN cetirizine 5 mg/5 mL solution 10 mg PO DAILY PRN (Reason: allergy symptoms) 30 Days Qty: 150 2RF Caladryl 1-8 % lotion 1 appl topical TID PRN (Reason: itching) 30 Days Qty: 177 0RF allopurinol 100 mg tablet 100 mg PO DAILY 90 Days Qty: 90 0RF prednisone 10 mg tablet 10 mg PO DIRECTED 6 Days Qty: 12 0RF Rx Instructions: Take 3 tabs the first 2 days, then 2 tabs the next 2 days, then 1 tab the next 2 days Referrals: Ivon Earl MD [Primary Care Provider] - 09/13/22 Interventions: ED Discharge Assessment Last Done: 09/10/22 09:49 Discharge Date/Time: 09/10/22 10:17
[2022-09-10 07:24] VITALS: BP 120/65; PULSE 63; RESP 14; TEMP 36.6; O2SAT 98
[2022-09-10] MEDS: diphenhydrAMINE HCL 50 MG/ML VIAL 25 MG IVPUSH (07:40)
[2022-09-10] MEDS: dexAMETHasone sod phosphate 10 MG/ML VIAL IVPUSH (07:40)
[2022-09-10 08:03] LABS: Alanine Aminotransferase 38 U/L (0-40); Albumin Level 3.5 g/dL (3.5-5.0); Alkaline Phosphatase 70 U/L (39-117); Anion Gap 15 (12-20); Aspartate Amino Transferase 35 U/L (5-37); Bilirubin Total 1.3 mg/dL (0.0-1.0); Blood Urea Nitrogen 32 mg/dL (9-16); Calcium 9.1 mg/dL (8.4-10.2); Carbon Dioxide 26 mmol/L (22-29); Chloride 107 mmol/L (96-108); Creatinine Clr Calc Pharmacy 67.8; Estimated Glomerular Filt Rate > 60; Glucose Random 93 mg/dL (60-115); Potassium 4.7 mmol/L (3.3-5.1); Sodium 143 mmol/L (135-145); Total Protein 6.5 g/dL (6.5-8.0)
[2022-09-10 08:19] LABS: Erythrocyte Sedimentation Rate 9 MM/HR (0-15)
[2022-09-10 09:24] LABS: MANUAL DIFF FLAG NO
[2022-09-10 09:27] LABS: Basophils Absolute Auto 0.1 X10*3/uL (0.0-0.2); Basophils Percent Auto 0.9 % (0-2); Eosinophils Absolute Auto 0.5 X10*3/uL (0.0-0.4); Eosinophils Percent Auto 7.2 % (0-4); Hemoglobin 11.1 g/dl (14.0-18.0); Imm Gran Abs Auto 0.01 X10*3/uL (0.00-0.03); Imm Gran Pct Auto 0.2 % (0.0-0.4); Lymphocytes Absolute Auto 2.2 X10*3/uL (1.2-4.9); Lymphocytes Percent Auto 33.6 % (20-40); Mean Corpuscular HGB Conc 31.7 g/dl (31.0-36.0); Mean Corpuscular Hemoglobin 26.5 pg (27.0-33.0); Mean Corpuscular Volume 83.5 fL (80.0-98.0); Mean Platelet Volume 10.8 fL (9.4-12.4); Monocytes Absolute Auto 0.8 X10*3/uL (0.1-1.2); Monocytes Percent Auto 11.9 % (2-11); Neutrophils Absolute Auto 3.1 x10*3/uL (2.0-8.3); Neutrophils Percent Auto 46.2 % (45-73); Platelet Count 205 X10*3/uL (160-400); Red Blood Count 4.19 X10*6/uL (4.60-5.80); Red Cell Distribution Width 14.9 % (11.0-16.0); White Blood Count 6.6 X10*3/uL (4.8-10.8)
== END 2022-09-10 10:17 | disposition home or self-care (01) ==
PROVIDERS: Emergency Provider Emergency Medicine; PCP Internal Medicine
DX: R21 Rash and other nonspecific skin eruption (principal); I10 Essential (primary) hypertension; Z79.899 Other long term (current) drug therapy
CPT/HCPCS: 36415; 80053; 85025; 85652; 96374; 96375; 99284; J1100; J1200

== ENCOUNTER → 2022-09-22 08:37 | Outpatient (BNV) | payer OTHER, SELFPAY | PROVIDERS: PCP Internal Medicine; Visit Provider Internal Medicine | DX: D50.9 Iron deficiency anemia, unspecified (principal) | CPT/HCPCS: 99204; 99213 ==

== ENCOUNTER 2022-10-05 09:03 | Emergency (ER) | payer OTHER, SELFPAY ==
[2022-10-05 09:30] VITALS: BP 126/73; PULSE 89; RESP 16; TEMP 36.6; O2SAT 98; BMI 35.5
--- NOTE | 2022-10-05 09:44 | ED.ALLEREA ---
HPI - Allergic Reaction General Chief complaint: Skin/Abscess/Foreign Body Stated complaint: Rash all over body itches and bothers at night Time Seen by Provider: 10/05/22 09:35 Source: patient and family (Son at bedside) Mode of arrival: ambulatory Limitations: language barrier (Libyan-speaking) History of Present Illness HPI narrative: 72yoM with a PMHx cirrhosis due to alcoholic liver disease, hypertension who is presenting to the ER with son at bedside due to patient is Libyan-speaking with complaints of a rash that he has had for approximately 1 month and has been persistent. Reports that he has been seen by his primary care provider and has had blood work and was seen here as well on 09/10/2022 and had extensive workup as well was told he had some type of rash possibly allergic versus drug reaction or unknown therefore patient was sent home with allergy medication. His PCP has given him 2-3 courses of steroids. Reports that the prednisone usually helps with the itching although does not last long and he runs out of the prescription quickly due to they only give him a few days. He denies any new substances or medications or lotions, others with similar rash, recent bug bites, trouble swallowing or breathing, chest pain or shortness of breath, wheezing, nausea/vomiting, abdominal pain or any other symptoms complaints or concerns at this time. MD complaint: other (Rash) Onset (ago): month(s) (1) Exposure: unknown Symptoms: rash and itching Severity: moderate Treatment prior to arrival: other (he has tried prednisone, sertraline, atarax) Previous Allergic Reaction History: prior ED visit(s) Related Data Home Medications Medication Instructions Recorded Confirmed diphenhydramine HCl 25 mg capsule 25 mg PO BEDTIME PRN Itching 08/25/22 09/22/22 (Benadryl) Previous Rx's Medication Instructions Recorded colchicine 0.6 mg tablet 0.6 mg PO BID PRN gout attack 5 05/27/22 days #10 tabs losartan 100 mg tablet 100 mg PO DAILY #90 tabs 08/05/22 omega-3 fatty acids 1,000 mg 1,000 mg PO DAILY #90 caps 08/05/22 capsule allopurinol 100 mg tablet 100 mg PO DAILY 90 days #90 tabs 09/01/22 cetirizine 5 mg/5 mL oral solution 10 mg (10 mL) PO DAILY PRN allergy 09/01/22 symptoms 30 days #150 mL pramoxine-calamine 1 %-8 % lotion 1 appl topical TID PRN itching 30 09/01/22 (Caladryl) days #177 mL loratadine 10 mg tablet (Claritin) 10 mg PO DAILY PRN allergic 09/14/22 symptoms 90 days #90 tabs omeprazole 40 mg capsule,delayed 40 mg PO DAILY #90 caps 09/14/22 release ferrous sulfate 325 mg (65 mg 325 mg PO BID #60 tabs 09/22/22 iron) tablet (iron) hydrocortisone 1 % topical spray 1 appl topical TID PRN Itching 30 09/24/22 (Anti-Itch (hydrocortisone)) days #85 grams prednisone 10 mg tablet 10 mg PO DIRECTED 6 days #12 09/25/22 tabs triamcinolone acetonide 0.1 % 1 appl topical BID 10 days #15 09/25/22 topical ointment grams folic acid 1 mg tablet 1 mg PO DAILY #90 tabs 09/27/22 cetirizine 5 mg/5 mL oral solution 10 mg (10 mL) PO DAILY #150 mL 10/05/22 hydrocortisone 2.5 % topical 1 appl topical QD-TID PRN skin 10/05/22 ointment irritation #454 grams prednisone 20 mg tablet 40 mg PO DAILY rash 5 days #10 tabs 10/05/22 Allergies Allergy/AdvReac Type Severity Reaction Status Date / Time No Known Allergies Allergy Verified 09/25/22 11:50 Review of Systems Review of Systems: Constitutional : No Fever, No Chills , no body aches, no recent illness Head/Face: No facial swelling, No facial redness ENT/Mouth : No oral/throat swelling, No Hoarseness, No Swallowing Difficulty Eyes: No Eye Pain, No Swelling, No Redness Cardiovascular : No Chest Pain, No SOB, No palpitations Respiratory : No Cough, No Sputum, No Wheezing, No Smoke Exposure, No Dyspnea Gastrointestinal : No Nausea, No Vomiting, No Diarrhea, No abdominal Pain Genitourinary : No Dysuria, No Urinary Frequency, No Hematuria Musculoskeletal : No joint pain, No Myalgias, No Joint Swelling Skin : No Skin Lesions, positive rash Neuro : No Weakness, No Numbness, No Headache, No dizziness, No tingling Psych : No Anxiety/Panic, No Depression Heme/Lymph: No Bruising, No Lymphadenopathy Endocrine : No Polyuria, No Polydipsia Denies changes in lotions or detergents. Denies new medications or any changes in medications. Denies drainage from rash. Denies any recent sick contacts or recent travel. Yes all other systems are reviewed and are negative [facility] Past Medical History Attestation statement: The following information was validated with the patient. Source: old records reviewed, obtained from family and nursing notes reviewed Medical History Arthritis Cirrhosis GERD (gastroesophageal reflux disease) Gout History of colon cancer HTN (hypertension) PUD (peptic ulcer disease) Surgical History History of colon surgery History of gastric ulcer History of tooth extraction Hx of colonoscopy Family History Family History Mother No problems noted. Father Prostate cancer Family/Other Mental health disorder Substance use disorder Brother Colon adenocarcinoma Sister Colon adenocarcinoma Lymphoma Social History Social History Household Members: Family Housing: House Alcohol intake: former Patient Tobacco Use Status: Former Tobacco user Tobacco use type: Cigarette e-Cigarette/Vaping Use: Never Used Second Hand Smoke Exposure: No Advance Directives: No Advance Directives Information Provided: Yes service: No Current occupational status: retired Cognitive needs: Yes Hearing needs: No Vision needs: Yes Physical Exam ED Vital Signs: Vital Signs - 24 hr 10/05/22 09:30 Temperature 97.9 F Pulse Rate 89 Respiratory Rate 16 Blood Pressure 126/73 Pulse Oximetry 98 Oxygen Delivery Method Room Air BMI result Body Mass Index 35.5 Vital signs have been reviewed and all within normal limits Appearance: Alert. Oriented X3. No acute distress. Head: Normal external exam. Normocephalic. Eyes: PERRLA. EOMI. Conjunctiva and sclera normal. Eyelids normal. ENT: Pharynx normal. Uvula midline. Moist mucous membranes. No trismus noted. No drooling noted. No muffled voice noted. Neck: Normal inspection. Neck supple. FROM. No adenopathy. No meningeal signs. CVS: Normal heart rate and rhythm. Heart sound normal. No murmurs noted. Pulses normal throughout. Respiratory: No respiratory distress. Painless inspiration. Breath sounds normal. No wheezes/rales/rhonchi noted. Chest nontender. No accessory muscle usage noted or decreased air movement noted. Abdomen: Soft and nontender. Nondistended. No guarding. No rigidity. Bowel sounds normal in all 4 quadrants. No distention noted. No organomegaly noted. No visible injury noted. No rebound tenderness. Negative Rovsing sign. Negative obturator's sign. Negative psoas sign. Negative Massey sign. Back: No CVA tenderness. Full range of motion noted. Skin: Skin warm and dry. Normal skin color. Normal skin turgor. Patient with a diffuse macular papular rash scattered throughout the entire body which include chest/abdomen/back/arms and legs. No obvious hives are noted. No pustular noted. No vesicles noted. No drainage from the rash. No signs of infection. No additional rashes/lesions/lacerations noted. Extremities: Extremities exhibit normal range of motion. Extremities nontender. Neuro: Oriented X 3. No motor deficit. No sensory deficit. Reflexes normal. Normal steady gait. CN's II-XII intact bilaterally? Course Course Course Narrative: IMP/Plan: Allergic rxn versus drug reaction versus contact dermatitis. Not anaphylaxis. Not sepsis/ infectious etiology. Patient well appearing in no acute distress, breathing easily without throat symptoms. Speaking full sentences, and handling secretions without difficulty. There is no obvious threat to airway. Lungs are CTA in all cooper. No signs of angioedema, stridor, airway compromise, anaphylaxis or anaphylactic shock. Not c/w SSSS/ TEN/ Eryth multiforme/ Cunha Johnsons. Will give a dose of IM Solu-Medrol 60 mg then send the patient home with topical hydrocortisone, a course of steroids and allergy medication instructions to follow-up with his PCP as scheduled and to the advanced registered nurse/synthetic department supervisor. He reports he has a synthetic department supervisor appointment on December 01. Along with instructions return if any new or worsening symptoms. Patient was son at bedside understand agree this plan. Medical Decision Making Independent Historian Clinical information obtained from an independent historian. History obtained from or confirmed by: Other (Patient and son at bedside) External Record Review External record reviewed: Inpatient record, Office record, Outpatient record, Prior outpatient labs, Prior outpatient radiology, Primary care record and Outside ED record I reviewed all the patient's outpatient labs, imaging and outpatient notes along with inpatient and ED visits and labs patient had a full workup on 09/10/2022 which involved liver enzymes which were within normal limits Chronic Conditions Patient?s care impacted by: Hypertension Discharge Plan Discharge Clinical Impression: Rash Patient Disposition: Home, Self-Care Instructions: Allergy Testing (ED) Prescriptions: New cetirizine 5 mg/5 mL solution 10 mg PO DAILY Qty: 150 2RF prednisone 20 mg tablet 40 mg PO DAILY 5 Days Qty: 10 2RF hydrocortisone 2.5 % ointment 1 appl topical QD-TID PRN (Reason: skin irritation) Qty: 454 1RF No Action colchicine 0.6 mg tablet 0.6 mg PO BID PRN (Reason: gout attack) 5 Days Qty: 10 1RF losartan 100 mg tablet 100 mg PO DAILY Qty: 90 0RF omega-3 fatty acids 1,000 mg capsule 1,000 mg PO DAILY Qty: 90 0RF Anti-Itch (HC) 1 % aerosol,spray 1 appl topical TID PRN (Reason: Itching) 30 Days Qty: 85 0RF folic acid 1 mg tablet 1 mg PO DAILY Qty: 90 0RF ferrous sulfate [iron] 325 mg (65 mg iron) Tablet 325 mg PO BID Qty: 60 3RF diphenhydramine HCl [Benadryl] 25 mg capsule 25 mg PO BEDTIME PRN (Reason: Itching) cetirizine 5 mg/5 mL solution 10 mg PO DAILY PRN (Reason: allergy symptoms) 30 Days Qty: 150 2RF Caladryl 1-8 % lotion 1 appl topical TID PRN (Reason: itching) 30 Days Qty: 177 0RF allopurinol 100 mg tablet 100 mg PO DAILY 90 Days Qty: 90 0RF loratadine [Claritin] 10 mg tablet 10 mg PO DAILY PRN (Reason: allergic symptoms) 90 Days Qty: 90 1RF omeprazole 40 mg capsule,delayed release(DR/EC) 40 mg PO DAILY Qty: 90 0RF prednisone 10 mg tablet 10 mg PO DIRECTED 6 Days Qty: 12 0RF Rx Instructions: Take 3 tabs the first 2 days, then 2 tabs the next 2 days, then 1 tab the next 2 days triamcinolone acetonide 0.1 % ointment 1 appl topical BID 10 Days Qty: 15 0RF Referrals: Ivon Earl MD [Primary Care Provider] - 2 days Print Language: Libyan
[2022-10-05] MEDS: methylPREDNISolone Sod Succ 125 MG/2 ML VIAL 60 MG IM (09:53)
== END 2022-10-05 09:57 | disposition home or self-care (01) ==
PROVIDERS: Emergency Provider Emergency Medicine; PCP Internal Medicine
DX: R21 Rash and other nonspecific skin eruption (principal); I10 Essential (primary) hypertension; Z79.899 Other long term (current) drug therapy
CPT/HCPCS: 96372; 99282; 99284; J2930

== ENCOUNTER 2023-03-02 09:14 | Outpatient (AMB) | payer OTHER, SELFPAY ==
[2023-03-02 09:22] VITALS: BP 130/72; PULSE 73; O2SAT 97; BMI 35.7
--- NOTE | 2023-03-02 09:22 | MHC.PC.OV ---
Vital Signs 03/02/23 09:22 Height 5 ft 4 in Weight 208 lb 4 oz BMI 35.7 BP 130/72 Blood Pressure Location Lt brachial Position Sitting Pulse 73 Pulse Source Pulse Oximeter Pulse Oximetry (%) 97 Oxygen Delivery Method Room Air Intake Visit Reasons: bp Intake Note: Pt is here for BP check. 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 Accompanied by: Self / Same As Patient Allergies No Known Allergies Allergy (Verified 03/02/23 09:34) Medication List - Last Reconciled 03/02/23 by vIon Murphy MD allopurinol 100 mg PO DAILY 90 days cetirizine 10 mg (10 mL) PO DAILY colchicine (gout) 0.6 mg PO BID PRN 5 days diphenhydramine HCl (Benadryl) 25 mg PO BEDTIME PRN ferrous sulfate (iron) 325 mg PO BID folic acid 1 mg PO DAILY hydrocortisone 2.5% 1 appl topical QD-TID PRN hydrocortisone 1% (Anti-Itch (hydrocortisone)) 1 appl topical TID PRN 30 days levocetirizine 0 mg PO loratadine (Claritin) 10 mg PO DAILY PRN 90 days losartan 100 mg PO DAILY omega-3 fatty acids 1,000 mg PO DAILY omeprazole 40 mg PO DAILY pramoxine-calamine 1-8 % (Caladryl) 1 appl topical TID PRN 30 days prednisone 10 mg PO DIRECTED 6 days triamcinolone acetonide 0.1% 1 appl topical BID 10 days Tobacco use date assessed: 09/01/22 Fall risk assessment: No Falls in past year Last assessed Fall Risk: 03/02/23 Dental Screening Dental Screen Date: 03/02/23 Did you have a dental visit in the last 12 months?: Yes Did you have a dental problem in the last 6 months where you did not have access to dental care?: No Was dental information given to patient?: Patient has dentist HPI HPI Comments History of Present Illness Details This is a 72-year-old male with hypertension, GERD, gout, cirrhosis and eczema that comes for follow-up on his conditions. Blood pressure stable. GERD stable with medications. Has not had a gout attack in over a month. Has cirrhosis follow by Gastroenterology and denies any jaundice. Has eczema that is follow by Dermatology and still complains of rash and itchiness in his back. Benadryl cream seems to help. No chest pain or shortness of breath. Compliant with medications. [facility] Medical History (Updated 03/02/23 @ 09:46 by Ivon Murphy MD) Arthritis Cirrhosis GERD (gastroesophageal reflux disease) Gout History of colon cancer HTN (hypertension) PUD (peptic ulcer disease) Surgical History History of colon surgery History of gastric ulcer History of tooth extraction Hx of colonoscopy Family History Mother No problems noted. Father Prostate cancer Family/Other Mental health disorder Substance use disorder Brother Colon adenocarcinoma Sister Colon adenocarcinoma Lymphoma Social History Household Members: Family Housing: House Alcohol intake: former Patient Tobacco Use Status: Former Tobacco user Tobacco use type: Cigarette e-Cigarette/Vaping Use: Never Used Second Hand Smoke Exposure: No service: No Current occupational status: retired Cognitive needs: Yes Hearing needs: No Vision needs: Yes Questionnaire Thrive Questionnaire Date Thrive assessed: 09/01/22 LISA-7 AMB Questionnaire LISA-7 Date LISA - 7 assessed: 09/01/22 Source: Developed by Drs. Ezio Kim, Arlene Miranda, Brayden Deleon and colleagues, with an educational shakila from [employer]. Review of Systems Const All systems reviewed & are unremarkable except as noted in HPI and below Eyes Reports no additional complaints, Denies change in vision and Denies other visual disturbances Card Denies chest pain at rest, Denies chest pain with activity, Denies edema, Denies irregular heart rhythm, Denies claudication, Denies dyspnea, Denies dyspnea on exertion, Denies orthopnea, Denies paroxysmal nocturnal dyspnea and Denies slow heart rate Resp Denies cough, Denies dyspnea and Denies dyspnea on exertion GI Denies abdominal pain, Denies change in bowel habits, Denies excessive flatus, Denies nausea and Denies vomiting Denies urinary hesitancy, Denies urinary incontinence and Denies urinary urgency Musc Denies abnormal gait, Denies atrophy, Denies deformity and Denies limited range of motion Skin/Breast Denies bleeding lesions, Denies changing lesions and Reports rash Neuro Denies abnormal gait and Denies lack of coordination Physical exam (Primary Care) Vital Signs: Last Vital Signs Pulse 73 03/02/23 09:22 BP 130/72 03/02/23 09:22 Pulse Ox 97 03/02/23 09:22 Oxygen Delivery Method Room Air 03/02/23 09:22 BMI result Body Mass Index 35.7 Tobacco/Smoking Status: Tobacco use Status Tobacco use date assessed 09/01/22 03/02/23 09:28 Patient Tobacco Use Status Former Tobacco user 03/02/23 09:28 Tobacco use type Cigarette 03/02/23 09:28 e-Cigarette/Vaping Use Never Used 03/02/23 09:28 Thrive Assessment: Date of Thrive Assessment Date Thrive assessed 09/01/22 03/02/23 09:28 Eyes General: appearance normal, both eyes and all related structures Eyelids: Yes eyelids normal Conjunctivae: conjunctivae normal Neck Neck: Yes normal visual inspection and Yes supple Resp Effort & Inspection: normal respiratory effort Auscultation: clear to auscultation bilaterally Cardio Jugular venous distension: no JVD Rate: regular rate Rhythm: regular rhythm Heart sounds: S1 normal heart sound present and S2 normal heart sound present Skin Rashes: rashes noted Extrem General: Yes full ROM Assessment and Plan Assessment & Plan (1) HTN (hypertension): Code(s): I10 - Essential (primary) hypertension Plan: Continue losartan. Blood pressure goal is equal or less than 130/80. (2) GERD (gastroesophageal reflux disease): Code(s): K21.9 - Gastro-esophageal reflux disease without esophagitis Plan: Continue PPIs as needed (3) Gout: Code(s): M10.9 - Gout, unspecified Plan: Continue allopurinol. Monitor uric acid. Follow a low uric acid diet. (4) Cirrhosis: Code(s): K74.60 - Unspecified cirrhosis of liver Plan: Follow-up with Gastroenterology. (5) Eczema: Code(s): L30.9 - Dermatitis, unspecified Plan: Complete prednisone course. Use Benadryl cream as needed. Follow-up with Dermatology. Orders: Orders Comprehensive [place]. Panel Fast Today K74.60 - Unspecified cirrhosis of liver IRON PROFILE Today D64.9 - Anemia, unspecified Lipid Panel Today E78.5 - Hyperlipidemia, unspecified Uric Acid Today M10.9 - Gout, unspecified Complete Blood Count Auto Diff Today D64.9 - Anemia, unspecified Medications: New diphenhydramine-zinc acetate 2-0.1 % (Benadryl Extra Strength) 1 appl topical BID PRN 28.3 grams 1RF itching 30 days Coding Level of Care Code Est Pt Level 4 (49228) Diagnoses HTN (hypertension) I10 GERD (gastroesophageal reflux disease) K21.9 Gout M10.9 Cirrhosis K74.60 Eczema L30.9 Time Spent (min) 22
== END 2023-03-02 09:45 | disposition home or self-care (01) ==
LOC: HO.HMGH 09:14
PROVIDERS: PCP Internal Medicine; Visit Provider Internal Medicine
DX: I10 Essential (primary) hypertension (principal); K21.9 Gastro-esophageal reflux disease without esophagitis; M10.9 Gout, unspecified; K74.60 Unspecified cirrhosis of liver; L30.9 Dermatitis, unspecified
CPT/HCPCS: 99214

== ENCOUNTER 2023-03-09 09:14 | Outpatient (REF) | payer OTHER, SELFPAY ==
[2023-03-09 09:40] LABS: MANUAL DIFF FLAG NO
[2023-03-09 10:03] LABS: Basophils Absolute Auto 0.1 X10*3/uL (0.0-0.2); Basophils Percent Auto 0.8 % (0-2); Eosinophils Absolute Auto 0.3 X10*3/uL (0.0-0.4); Eosinophils Percent Auto 4.4 % (0-4); Hematocrit 40.7 % (42.0-52.0); Hemoglobin 13.6 g/dl (14.0-18.0); Imm Gran Abs Auto 0.02 X10*3/uL (0.00-0.03); Imm Gran Pct Auto 0.3 % (0.0-0.4); Lymphocytes Absolute Auto 2.1 X10*3/uL (1.2-4.9); Lymphocytes Percent Auto 32.8 % (20-40); Mean Corpuscular HGB Conc 33.4 g/dl (31.0-36.0); Mean Corpuscular Hemoglobin 30.6 pg (27.0-33.0); Mean Corpuscular Volume 91.5 fL (80.0-98.0); Mean Platelet Volume 10.6 fL (9.4-12.4); Monocytes Absolute Auto 0.7 X10*3/uL (0.1-1.2); Monocytes Percent Auto 10.9 % (2-11); Neutrophils Absolute Auto 3.3 x10*3/uL (2.0-8.3); Neutrophils Percent Auto 50.8 % (45-73); Platelet Count 168 X10*3/uL (160-400); Red Blood Count 4.45 X10*6/uL (4.60-5.80); Red Cell Distribution Width 13.2 % (11.0-16.0); White Blood Count 6.5 X10*3/uL (4.8-10.8)
[2023-03-09 10:46] LABS: Alanine Aminotransferase 29 U/L (0-40); Albumin Level 3.8 g/dL (3.5-5.0); Alkaline Phosphatase 62 U/L (39-117); Anion Gap 9 (12-20); Aspartate Amino Transferase 31 U/L (5-37); Bilirubin Total 1.4 mg/dL (0.0-1.0); Blood Urea Nitrogen 21 mg/dL (9-16); Calcium 9.4 mg/dL (8.4-10.2); Carbon Dioxide 30 mmol/L (22-29); Chloride 106 mmol/L (96-108); Cholesterol 188 mg/dL; Estimated Glomerular Filt Rate > 60; Glucose Fasting 100 mg/dL (60-99); HDL Cholesterol 61 mg/dL; Iron 129 mcg/dL (45-160); LDL Cholesterol Calculated 114 mg/dl; Percent Iron Saturation 46 % (15-50); Sodium 141 mmol/L (135-145); Total Iron Binding Capacity 281 mcg/dL (228-428); Triglycerides 67 mg/dL; Unsaturated Iron Binding 152 ug/dL; Uric Acid 3.7 mg/dL (3.4-7.0)
== END 2023-03-09 09:15 | disposition home or self-care (01) ==
LOC: HO.LAB 09:14
PROVIDERS: PCP Internal Medicine; Visit Provider Internal Medicine
DX: D64.9 Anemia, unspecified (principal); K74.60 Unspecified cirrhosis of liver; E78.5 Hyperlipidemia, unspecified; M10.9 Gout, unspecified
CPT/HCPCS: 36415; 80053; 80061; 83540; 84550; 85025

== ENCOUNTER 2023-07-20 09:14 | Outpatient (REF) | payer OTHER, SELFPAY ==
[2023-07-20 09:57] LABS: Prothrombin Time 11.9 SEC (11.1-13.3)
[2023-07-20 10:31] LABS: Alanine Aminotransferase 24 U/L (0-40); Albumin Level 3.8 g/dL (3.5-5.0); Alkaline Phosphatase 63 U/L (39-117); Aspartate Amino Transferase 32 U/L (5-37); Bilirubin Direct 0.3 mg/dL (0.0-0.5); Bilirubin Total 1.2 mg/dL (0.0-1.0); Total Protein 7.1 g/dL (6.5-8.0)
[2023-07-21 16:39] LABS: Immunoglobulin A 326 mg/dL (70-320)
[2023-07-21 20:23] LABS: Gliadin Deamidated IgA Ab <1.0 U/mL; Gliadin Deamidated IgG Ab <1.0 U/mL
[2023-07-22 13:09] LABS: Endomysial IgA Antibody Negative (Negative)
[2023-07-22 13:28] LABS: Alpha Fetoprotein 2.7 ng/mL (<6.1)
[2023-07-27 10:04] LABS: Transglutaminase Ab IgG <1.0 U/mL; Transglutaminase IgA <1.0 U/mL
== END 2023-07-20 09:15 | disposition home or self-care (01) ==
LOC: HO.LAB 09:14
PROVIDERS: PCP Internal Medicine; Visit Provider Internal Medicine
DX: K70.30 Alcoholic cirrhosis of liver without ascites (principal); K90.0 Celiac disease
CPT/HCPCS: 36415; 80076; 82105; 82784; 85610; 86231; 86258; 86364

== ENCOUNTER 2023-08-17 09:05 | Outpatient (REF) | payer OTHER, SELFPAY ==
--- NOTE | ~2023-08-17 | US_ITS ---
EXAMINATION: US ABDOMEN COMPLETE CLINICAL INFORMATION: Alcoholic cirrhosis.. COMPARISON: None available. TECHNIQUE: Real-time imaging of the abdominal viscera. FINDINGS: PANCREAS: Largely obscured by overlapping bowel gas. ABDOMINAL AORTA: The proximal, mid, and distal segments are normal in caliber. INFERIOR VENA CAVA: Visualized portions are normal. LIVER: The liver is normal in size. The liver contour is lobulated. Parenchymal echogenicity is increased. No focal hepatic lesion. There is no intrahepatic biliary duct dilatation seen. GALLBLADDER: There are gallstones. There is ringdown artifact, consistent with adenomyomatosis. The gallbladder is physiologically distended without evidence of sludge, polyps, wall thickening or pericholecystic fluid. COMMON BILE DUCT: Normal in caliber measuring 0.4 cm in diameter. RIGHT KIDNEY: At the interpolar aspect, a 9 mm benign, simple cyst is seen, for which no imaging follow-up is recommended. No hydronephrosis. No renal calculi or focal parenchymal lesions. The kidney measures 10.7 cm in maximum dimension. LEFT KIDNEY: At the interpolar aspect medially, a 1.1 cm benign, simple cyst is seen, for which no imaging follow-up is recommended. No hydronephrosis. No renal calculi or focal parenchymal lesions. The kidney measures 11.5 cm in maximum dimension. SPLEEN: Normal. The spleen measures 10.2 cm in maximum dimension. FREE FLUID: None. US/US abdomen complete IMPRESSION: 1. Consistent with the provided history of cirrhosis, there is increased hepatic echotexture and a lobular contour. No focal hepatic mass or intrahepatic biliary ductal dilatation is seen. 2. There is cholelithiasis. 3. There is mild gallbladder ringdown artifact, suggesting adenomyomatosis. 4. Technically limited ultrasound examination of the pancreas and abdominal great vessels.
== END 2023-08-17 09:06 | disposition home or self-care (01) ==
LOC: HO.US 09:05
PROVIDERS: PCP Internal Medicine; Visit Provider Internal Medicine
DX: K70.30 Alcoholic cirrhosis of liver without ascites (principal)
CPT/HCPCS: 76700

== ENCOUNTER 2023-09-14 09:10 | Outpatient (AMB) | payer OTHER, SELFPAY ==
[2023-09-14 09:15] VITALS: BP 130/62; BMI 36.4
--- NOTE | 2023-09-14 09:15 | A.OFFPC_ITS ---
Vital Signs 09/14/23 09:15 Height 5 ft 4 in Weight 212 lb BMI 36.4 BP 130/62 Blood Pressure Location Lt brachial Position Sitting Intake Visit Reasons: Annual Exam Intake Note: Patient here for a physical exam Vp Of Technology Required: No Accompanied by: Son Allergies No Known Allergies Allergy (Verified 09/14/23 09:35) Medication List - Last Reconciled 09/14/23 by Ivon Murphy MD allopurinol 100 mg PO DAILY 90 days blood pressure monitor As directed cetirizine 10 mg (10 mL) PO DAILY colchicine 0.6 mg PO BID PRN 5 days [digital blood pressure meter As directed] diphenhydramine-zinc acetate 2-0.1 % (Benadryl Extra Strength) 1 appl topical BID PRN 30 days [disposeable gloves As directed] dupilumab (Dupixent) mg subcut folic acid 1 mg PO DAILY hydrocortisone 2.5% 1 appl topical QD-TID PRN hydrocortisone 1% (Anti-Itch (hydrocortisone)) 1 appl topical TID PRN 30 days levocetirizine 5 mg PO DAILY loratadine (Claritin) 10 mg PO DAILY PRN 90 days losartan 100 mg PO DAILY omega-3 fatty acids 1,000 mg PO DAILY omeprazole 40 mg PO DAILY pramoxine-calamine 1-8 % (Caladryl) 1 appl topical TID PRN 30 days triamcinolone acetonide 0.1% 1 appl topical BID 10 days [washable bed pads 6per day As directed] Tobacco use date assessed: 09/14/23 Fall risk assessment: No Falls in past year Last assessed Fall Risk: 09/14/23 Dental Screening Dental Screen Date: 09/14/23 Did you have a dental visit in the last 12 months?: No Did you have a dental problem in the last 6 months where you did not have access to dental care?: No Was dental information given to patient?: Patient has dentist HPI HPI Comments History of Present Illness Details This is a 73-year-old male that comes accompanied by son for his physical exam. Blood pressure stable. Labs will be ordered. Has history of colon cancer in 2014 and last colonoscopy was in [address] Garcia. No chest pain or shortness of breath. Doing well. [facility] Medical History (Updated 09/14/23 @ 10:02 by Ivon Murphy MD) History of colon cancer PUD (peptic ulcer disease) Cirrhosis Arthritis GERD (gastroesophageal reflux disease) Gout HTN (hypertension) Surgical History (Updated 09/14/23 @ 09:40 by Ivon Murphy MD) Hx of colonoscopy History of colon surgery History of tooth extraction History of gastric ulcer Family History Mother No problems noted. Father Prostate cancer Family/Other Mental health disorder Substance use disorder Brother Colon adenocarcinoma Sister Colon adenocarcinoma Lymphoma Social History Household Members: Family Housing: House Alcohol intake: former Patient Tobacco Use Status: Former Tobacco user Tobacco use type: Cigarette e-Cigarette/Vaping Use: Never Used Second Hand Smoke Exposure: No service: No Current occupational status: retired Cognitive needs: Yes Hearing needs: No Vision needs: Yes Questionnaire PHQ-9 Over the last 2 weeks, how often have you been bothered by any of the following problems? 1. Little interest or pleasure in doing things: not at all 2. Feeling down, depressed, or hopeless: not at all 3. Trouble falling or staying asleep, or sleeping too much: not at all 4. Feeling tired or having little energy: not at all 5. Poor appetite or overeating: not at all 6. Feeling bad about yourself - or that you are a failure or have let yourself or your family down: not at all 7. Trouble concentrating on things, such as reading the newspaper or watching television: not at all 8. Moving or speaking so slowly that other people could have noticed. Or the opposite - being so fidgety or restless that you have been moving around a lot more than usual: not at all 9. Thoughts that you would be better off or of hurting yourself in some way: not at all Total score: 0 Depression Screening Interpretation: Negative Depression Screening Done: Yes 58109 - PHQ-9 Billing: Yes Source: Developed by Drs. Ezio Kim, Arlene Miranda, Brayden Deleon and colleagues, with an educational shakila from [email or web address]. Thrive Questionnaire Date Thrive assessed: 09/14/23 I am a: Patient What is your living situation today?: I have a steady place to live Within the past 12 months, did the food you bought not last and you didn't have the money to get more?: Never true Within the past 12 months, did you worry whether your food would run out before you got money to buy more?: Never true Do you have trouble paying for medicines?: No Do you have trouble getting transportation to medical appointments?: No Do you have trouble paying your heating and electricity bill?: No Do you have trouble taking care of your child, family member or friend?: No Do you have trouble with day-to-day activities such as bathing, preparing meals, shopping, managing finances, etc.?: No Are you currently unemployed and looking for a job?: No Are you interested in more education?: No Please select the resources that you would like help with: None Currently or been in a relationship where the following occur: no concerns reported THRIVE Score: 0 AUDIT C Alcohol Use Questionnaire (AUDIT-C) 1. How often do you have a drink containing alcohol?: Never Total Score: 0 LISA-7 AMB Questionnaire LISA-7 Date LISA - 7 assessed: 09/14/23 Feeling nervous, anxious, or on edge: 0 = Not at all Not being able to stop or control worryin = Not at all Worrying too much about different things: 0 = Not at all Trouble relaxin = Not at all Being so restless that it is hard to sit still: 0 = Not at all Becoming easily annoyed or irritable: 0 = Not at all Feeling afraid as if something awful might happen: 0 = Not at all Total LISA-7 score (0-4 normal; 5-9 mild; 10-14 moderate; 15-21 severe): 0 Source: Developed by Drs. Ezio Kim, Arlene Miranda, Brayden felix nd colleagues, with an educational shakila from [email or web address]. LISA-7 Assessment Billing LISA-7 Assessment Tool: LISA-7 Assessment 34631 Review of Systems Const All systems reviewed & are unremarkable except as noted in HPI and below Eyes Reports no additional complaints, Denies change in vision and Denies other visual disturbances Card Denies chest pain at rest, Denies chest pain with activity, Denies edema, Denies irregular heart rhythm, Denies claudication, Denies dyspnea, Denies dyspnea on exertion, Denies orthopnea, Denies paroxysmal nocturnal dyspnea and Denies slow heart rate Resp Denies cough, Denies dyspnea and Denies dyspnea on exertion GI Denies abdominal pain, Denies change in bowel habits, Denies excessive flatus, Denies nausea and Denies vomiting Denies urinary hesitancy, Denies urinary incontinence and Denies urinary urgency Musc Denies abnormal gait, Denies atrophy, Denies deformity and Denies limited range of motion Skin/Breast Denies bleeding lesions, Denies changing lesions and Denies rash Neuro Denies abnormal gait, Denies behavioral changes, Denies confusion and Denies lack of coordination Psych Denies behavioral changes and Denies confusion Physical exam (Primary Care) Vital Signs: Last Vital Signs BP 130/62 09/14/23 09:15 BMI result Body Mass Index 36.4 Tobacco/Smoking Status: Tobacco use Status Tobacco use date assessed 09/14/23 09/14/23 09:27 Patient Tobacco Use Status Former Tobacco user 09/14/23 09:20 Tobacco use type Cigarette 09/14/23 09:20 e-Cigarette/Vaping Use Never Used 09/14/23 09:20 PHQ-9: PHQ-9 Score PHQ-9: Total score 0 09/14/23 09:40 Depression Screening Interpretation: Negative Thrive Assessment: Date of Thrive Assessment Date Thrive assessed 09/14/23 09/14/23 09:20 Currently or been in a relationship where the following occur: no concerns reported Const General: No confusion Orientation/consciousness: patient oriented x3 and No confusion HENMT Head: Yes normal to inspection, Yes normocephalic and Yes atraumatic Ears: external ears normal Eyes General: appearance normal, both eyes and all related structures Eyelids: Yes eyelids normal Conjunctivae: conjunctivae normal Neck Neck: Yes normal visual inspection and Yes supple Resp Effort & Inspection: normal respiratory effort Auscultation: clear to auscultation bilaterally Cardio Jugular venous distension: no JVD Rate: regular rate Rhythm: regular rhythm Heart sounds: S1 normal heart sound present and S2 normal heart sound present GI Inspection: Yes normal to inspection Palpation (GI): Soft to palpation and nontender Auscultation: normal bowel sounds Skin General skin exam: no rashes or lesions noted Neuro General: patient oriented x3, no focal motor deficits and No confusion Extrem General: Yes full ROM Psych Appearance: grossly normal Assessment and Plan Assessment & Plan (1) Physical exam: Code(s): Z00.00 - Encounter for general adult medical examination without abnormal findings Plan: Repeat in a year. Orders: Orders Uric Acid Today M10.9 - Gout, unspecified Comprehensive [place]. Panel Fast Today I10 - Essential (primary) hypertension Lipid Panel Today E78.5 - Hyperlipidemia, unspecified Coding Level of Care Code Est Pt Prev Care >65y(99817) Diagnoses Physical exam Z00.00 Additional Codes LISA-7 Assessment Billing - LISA-7 Assessment Tool: LISA-7 Assessment [id number] ([id number]) Time Spent (min) 33
== END 2023-09-14 09:47 | disposition home or self-care (01) ==
PROVIDERS: Visit Provider Internal Medicine
DX: Z00.00 Encounter for general adult medical examination without abnormal findings (principal)
CPT/HCPCS: 99397

== ENCOUNTER 2023-09-21 09:09 | Outpatient (REF) | payer OTHER, SELFPAY ==
[2023-09-21 10:59] LABS: Alanine Aminotransferase 33 U/L (0-40); Alkaline Phosphatase 72 U/L (39-117); Anion Gap 9 (12-20); Aspartate Amino Transferase 38 U/L (5-37); Bilirubin Total 1.1 mg/dL (0.0-1.0); Blood Urea Nitrogen 28 mg/dL (9-16); Calcium 9.5 mg/dL (8.4-10.2); Carbon Dioxide 28 mmol/L (22-29); Chloride 106 mmol/L (96-108); Cholesterol 166 mg/dL (<200); Estimated Glomerular Filt Rate > 60; Glucose Fasting 90 mg/dL (60-99); HDL Cholesterol 51 mg/dL (>40); LDL Cholesterol Calculated 102 mg/dL (<100); Potassium 4.1 mmol/L (3.3-5.1); Sodium 139 mmol/L (135-145); Total Protein 7.4 g/dL (6.5-8.0); Triglycerides 67 mg/dL (<150)
[2023-09-21 12:19] LABS: Uric Acid 4.3 mg/dL (3.4-7.0)
== END 2023-09-21 09:10 | disposition home or self-care (01) ==
LOC: HO.LAB 09:09
PROVIDERS: PCP Internal Medicine; Visit Provider Internal Medicine
DX: M10.9 Gout, unspecified (principal); E78.5 Hyperlipidemia, unspecified; I10 Essential (primary) hypertension
CPT/HCPCS: 36415; 80053; 80061; 84550

== ENCOUNTER 2024-02-01 13:59 | Outpatient (AMB) | payer OTHER, SELFPAY ==
--- NOTE | 2024-02-01 14:02 | A.OFFPC_ITS ---
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 Accompanied by: Self / Same As Patient Allergies No Known Allergies Allergy (Verified 02/01/24 14:16) Medication List - Last Reconciled 02/01/24 by Ivon Murphy MD allopurinol 100 mg PO DAILY 90 days blood pressure monitor As directed cetirizine 10 mg (10 mL) PO DAILY colchicine 0.6 mg PO BID PRN 5 days [digital blood pressure meter As directed] diphenhydramine-zinc acetate 2-0.1 % (Benadryl Extra Strength) 1 appl topical BID PRN 30 days [disposeable gloves As directed] dupilumab (Dupixent) mg subcut folic acid 1 mg PO DAILY hydrocortisone 2.5% 1 appl topical QD-TID PRN hydrocortisone 1% (Anti-Itch (hydrocortisone)) 1 appl topical TID PRN 30 days ibuprofen 600 mg PO Q8H PRN 30 days levocetirizine 5 mg PO DAILY lidocaine 5% 1 patch topical DAILY PRN 30 days loratadine (Claritin) 10 mg PO DAILY PRN 90 days losartan 100 mg PO DAILY omega-3 fatty acids 1,000 mg PO DAILY omeprazole 40 mg PO DAILY pramoxine-calamine 1-8 % (Caladryl) 1 appl topical TID PRN 30 days Shower Chair As directed triamcinolone acetonide 0.1% 1 appl topical BID 10 days [washable bed pads 6per day As directed] Tobacco use date assessed: 09/14/23 Fall risk assessment: No Falls in past year Last assessed Fall Risk: 02/01/24 Dental Screening Dental Screen Date: 09/14/23 HPI HPI Comments History of Present Illness Details This is a 73-year-old male with hypertension, GERD, arthritis, gout and history of colon cancer in 2014 that comes today complaining of diffuse joint pain due to arthritis and would like a refill in ibuprofen. Blood pressure stable. GERD stable with PPIs. Has not had a gout attack in over a month. Last colonoscopy was 2021 and next colonoscopy should be 2024. [facility] Medical History (Updated 02/01/24 @ 14:32 by Ivon Murphy MD) History of colon cancer PUD (peptic ulcer disease) Cirrhosis Arthritis GERD (gastroesophageal reflux disease) Gout HTN (hypertension) Surgical History Hx of colonoscopy History of colon surgery History of tooth extraction History of gastric ulcer Family History Mother No problems noted. Father Prostate cancer Family/Other Mental health disorder Substance use disorder Brother Colon adenocarcinoma Sister Colon adenocarcinoma Lymphoma Social History Household Members: Family Housing: House Alcohol intake: former Patient Tobacco Use Status: Former Tobacco user Tobacco use type: Cigarette e-Cigarette/Vaping Use: Never Used Second Hand Smoke Exposure: No service: No Current occupational status: retired Cognitive needs: Yes Hearing needs: No Vision needs: Yes Questionnaire Thrive Questionnaire Date Thrive assessed: 09/14/23 LISA-7 AMB Questionnaire LISA-7 Date LISA - 7 assessed: 09/14/23 Source: Developed by Drs. Ezio Kim, Arlene Miranda, Brayden Deleon and colleagues, with an educational shakila from [employer]. Review of Systems Const All systems reviewed & are unremarkable except as noted in HPI and below Card Denies chest pain at rest, Denies chest pain with activity, Denies edema, Denies irregular heart rhythm, Denies claudication, Denies dyspnea, Denies dyspnea on exertion, Denies orthopnea, Denies paroxysmal nocturnal dyspnea and Denies slow heart rate Resp Denies cough, Denies dyspnea and Denies dyspnea on exertion Physical exam (Primary Care) Vital Signs: Last Vital Signs Pulse 67 02/01/24 14:08 BP 136/60 02/01/24 14:08 Pulse Ox 97 02/01/24 14:08 Oxygen Delivery Method Room Air 02/01/24 14:08 BMI result Body Mass Index 36.9 Tobacco/Smoking Status: Tobacco use Status Tobacco use date assessed 09/14/23 02/01/24 14:04 Patient Tobacco Use Status Former Tobacco user 02/01/24 14:04 Tobacco use type Cigarette 02/01/24 14:04 e-Cigarette/Vaping Use Never Used 02/01/24 14:04 Thrive Assessment: Date of Thrive Assessment Date Thrive assessed 09/14/23 02/01/24 14:04 Resp Effort & Inspection: normal respiratory effort Auscultation: clear to auscultation bilaterally Cardio Jugular venous distension: no JVD Rate: regular rate Rhythm: regular rhythm Heart sounds: S1 normal heart sound present and S2 normal heart sound present Extrem General: Yes full ROM Assessment and Plan Assessment & Plan (1) Arthritis: Code(s): M19.90 - Unspecified osteoarthritis, unspecified site Plan: Continue ibuprofen as needed. (2) GERD (gastroesophageal reflux disease): Code(s): K21.9 - Gastro-esophageal reflux disease without esophagitis Qualifiers: Esophagitis presence: esophagitis presence not specified Qualified Code(s): K21.9 - Gastro-esophageal reflux disease without esophagitis Plan: Continue PPIs. (3) History of colon cancer: Comment: 2014 Code(s): Z85.038 - Personal history of other malignant neoplasm of large intestine Plan: Follow-up with Gastroenterology. Next colonoscopy should be 2024. (4) HTN (hypertension): Code(s): I10 - Essential (primary) hypertension Qualifiers: Hypertension type: primary hypertension Qualified Code(s): I10 - Essential (primary) hypertension Plan: Continue losartan. Blood pressure goal is equal or less than 130/80. (5) Gout: Code(s): M10.9 - Gout, unspecified Qualifiers: Gout site: unspecified site Gout etiology: idiopathic Chronicity: chronic Presence of tophus: without tophus Qualified Code(s): M1A.00X0 - Idiopathic chronic gout, unspecified site, without tophus (tophi) Plan: Continue allopurinol for prophylaxis. Medications: Refilled ibuprofen 600 mg PO Q8H 30 days PRN 80 tabs 2RF pain Coding Level of Care Code Est Pt Level 4 (49170) Complex EM visit Add On G2211 Diagnoses Arthritis M19.90 Gastroesophageal reflux disease, unspecified whether esophagitis present K21.9 Esophagitis presence: esophagitis presence not specified History of colon cancer Z85.038 Primary hypertension I10 Hypertension type: primary hypertension Idiopathic chronic gout without tophus, unspecified site M1A.00X0 Gout site: unspecified site Gout etiology: idiopathic Chronicity: chronic Presence of tophus: without tophus Time Spent (min) 22
[2024-02-01 14:08] VITALS: BP 136/60; PULSE 67; O2SAT 97; BMI 36.9
== END 2024-02-01 14:24 | disposition home or self-care (01) ==
PROVIDERS: PCP Internal Medicine; Visit Provider Internal Medicine
DX: M19.90 Unspecified osteoarthritis, unspecified site (principal); K21.9 Gastro-esophageal reflux disease without esophagitis; Z85.038 Personal history of other malignant neoplasm of large intestine; I10 Essential (primary) hypertension; M1A.00X0 Idiopathic chronic gout, unspecified site, without tophus (tophi)
CPT/HCPCS: 99214; G2211

== ENCOUNTER 2024-08-15 09:19 | Outpatient (REF) | payer OTHER, SELFPAY ==
--- NOTE | ~2024-08-15 | US_ITS ---
CLINICAL HISTORY: cirrhosis US abdomen complete Comparison: 08/17/2023 Findings: The visualized pancreas is normal. Coarse hepatic echotexture (known cirrhosis). Liver size not measured. There is no intrahepatic bile duct dilatation. The common duct is 2 mm in diameter. Distended gallbladder with stone and adenomyomatosis. Sonographic Massey's sign not assessed. The main portal vein is antegrade. The right kidney is 11.3 cm in length. The left kidney is 11.9 cm in length. A few subcentimeter renal cysts. Otherwise unremarkable kidneys. The spleen is normal. Spleen measures 10 cm in length. No ascites. IMPRESSION: 1. No hepatic mass lesion seen. 2. Distended gallbladder with stone and adenomyomatosis. Sonographic Massey's sign not assessed. This document has been electronically signed by: Aline Martinez MD on 08/16/2024 09:14:35
--- OUTSIDE RECORDS SUMMARY | 2024-08-15 09:51 | XMS_ITS | Clinical Summary ---
Author Organization [employer] Address [address] [place] [address] [address] [place] [address] Care Team Providers Care Rules Examiner Name Role Phone Unavailable Primary Care Provider Unavailabl e Social History Tobacco Use Types Packs/Day Years Used Date Smoking Tobacco: Never Assessed Sex and Gender Information Value Date Recorded Sex Assigned at Male 05/24/2022 10:35 AM EDT Legal Sex Male 10:35 AM EDT Gender Identity Male 05/24/2022 10:35 AM EDT Sexual Orientation Straight 05/24/2022 10 :35 AM EDT Last Filed Vital Signs Vital Sign Reading Time Taken Comments Blood Pressure 140/80 06/09/2021 12:11 AM EST Pulse 79 06/09/2021 12:11 AM EST Temperature - - Respiratory Rate - - Oxygen Saturation - - Inhaled Oxygen Concentration - - Weight 103 kg (226 lb) 06/09/2021 12:11 AM EST Height 168.3 cm (5' 6.25 ) 06/09/2021 12:[address] Body Mass Index 36.2 06/09/2021 12:11 AM EST Plan of Treatment Health Maintenance Due Date Last Done Comments CT Colonography 1948 Colonoscopy 1948 Colorectal Cancer Screening 1948 Depression Screening 1948 FIT DNA/Cologuard 1948 FIT 1948 FOBT 1948 Sigmoidoscopy 1948 Alcohol/Substance Use Screening 1960 Tobacco Screening 1960 Zoster Vaccines (1 of 2) 1998 DTaP/Tdap/Td Vaccines (1 - Tdap) 07/25/2019 07/24/2019 Pneumococcal Vaccine: 65+ Years (2 of 2 - PPSV23 or PCV20) 07/24/2020 07/24/2019 RSV Patients and Patients Aged 60 years or older (1 - 1-dose 75+ series) 2023 COVID-19 Vaccine (3 - 2023-2 5 season) 2024 05/26/2021, 10/08/2020 Influenza Vaccine (#1) 2024 , 04/13/2020, 05/08/2019 Lipid Panel 07/30/2025 07/30/2020 HIB Vaccines Aged Out No longer eligi ble based on patient's age to complete this topic HPV Vaccines Aged Out No longer eligi ble based on patient's age to complete this topic Hepatitis A Vaccines Aged Out No long er eligible based on patient's age to complete this topic Hepatitis B Vaccines Aged Out No long er eligible based on patient's age to complete this topic IPV Vaccines Aged Out No longer eligi ble based on patient's age to complete this topic Meningococcal Vaccine Aged Out No abhinav aure eligible based on patient's age to complete this topic RSV under 20 months Aged Out No longe r eligible based on patient's age to complete this topic Rotavirus Vaccines Aged Out No longer eligible based on patient's age to complete this topic Procedures Procedure Name Priority Date/Time Associated Diagnosis Comments LIPID PANEL, STANDARD Routine 07/30/2020 9:36 AM EST from Last 3 Months or Most Recently Relevant to Health Maintenance Results * LIPID PANEL, STANDARD (07/30/2020 9:36 AM EST) Chol/HDLC Ratio 3.4 <5.0 (calc) [facility] Cholesterol, Total 161 <200 mg/dL [facility] HDL Cholesterol 48 > OR = 40 mg/dL [facility] LDL Cholesterol 99 mg/dL (calc) [facility] Comment: Reference range: <100 ?? Desirable range <100 mg/dL for primary prevention; ?? <70 mg/dL for patients with CHD or diabetic patients ?? with > or = 2 CHD risk factors. ?? LDL-C is now calculated using the Jalen ?? calculation, which is a validated novel method providing ?? better accuracy than the Friedewald equation in the ?? estimation of LDL-C. ?? Chaparro AZEVEDO et al. DREW. 2013;310(19): 3860-2419 ?? (http://education.[employer].com/faq/QWA481) Non-HDL Cholesterol 113 <130 mg/dL (calc) [facility] Comment: For patients with diabetes plus 1 major ASCVD risk ?? factor, treating to a non-HDL-C goal of <100 mg/dL ?? (LDL-C of <70 mg/dL) is considered a therapeutic ?? option. Triglycerides 53 <150 mg/dL [facility] 07/30/2020 9:36 AM EST us Atif Smith MD LAB BLOOD ORDERABLES Final Result [facility] [address] from Last 3 Months or Most Recently Relevant to Health Maintenance
[2024-08-15 10:26] LABS: MANUAL DIFF FLAG NO
[2024-08-15 11:09] LABS: Basophils Percent Auto 0.8 % (0-2); Eosinophils Absolute Auto 0.4 X10*3/uL (0.0-0.4); Eosinophils Percent Auto 7.4 % (0-4); Hematocrit 40.4 % (42.0-52.0); Hemoglobin 13.2 g/dl (14.0-18.0); Imm Gran Abs Auto 0.01 X10*3/uL (0.00-0.03); Imm Gran Pct Auto 0.2 % (0.0-0.4); Lymphocytes Absolute Auto 1.4 X10*3/uL (1.2-4.9); Lymphocytes Percent Auto 27.8 % (20-40); Mean Corpuscular HGB Conc 32.7 g/dl (31.0-36.0); Mean Corpuscular Hemoglobin 29.5 pg (27.0-33.0); Mean Corpuscular Volume 90.4 fL (80.0-98.0); Mean Platelet Volume 10.5 fL (9.4-12.4); Monocytes Absolute Auto 0.6 X10*3/uL (0.1-1.2); Monocytes Percent Auto 11.1 % (2-11); Neutrophils Absolute Auto 2.7 x10*3/uL (2.0-8.3); Neutrophils Percent Auto 52.7 % (45-73); Platelet Count 186 X10*3/uL (160-400); Red Blood Count 4.47 X10*6/uL (4.60-5.80); Red Cell Distribution Width 13.2 % (11.0-16.0)
[2024-08-15 11:14] LABS: Prothrombin Time 11.8 SEC (10.9-12.4)
[2024-08-15 11:33] LABS: Alanine Aminotransferase 46 U/L (0-40); Albumin Level 3.8 g/dL (3.5-5.0); Alkaline Phosphatase 79 U/L (39-117); Aspartate Amino Transferase 50 U/L (5-37); Bilirubin Direct 0.3 mg/dL (0.0-0.5); Bilirubin Total 0.9 mg/dL (0.0-1.0); Total Protein 7.4 g/dL (6.5-8.0)
== END 2024-08-15 09:20 | disposition home or self-care (01) ==
LOC: HO.US 09:19
PROVIDERS: PCP Internal Medicine; Visit Provider Internal Medicine
DX: K70.30 Alcoholic cirrhosis of liver without ascites (principal)
CPT/HCPCS: 36415; 76700; 80076; 82105; 85025; 85610

== ENCOUNTER → 2024-08-15 09:43 | Outpatient (BNV) | payer OTHER, SELFPAY | PROVIDERS: PCP Internal Medicine; Visit Provider Radiology Diagnostic Radiology | DX: K80.20 Calculus of gallbladder without cholecystitis without obstruction (principal); N80.03 Adenomyosis of the uterus | CPT/HCPCS: 76700 ==

== ENCOUNTER 2024-09-19 09:12 | Outpatient (AMB) | payer OTHER, SELFPAY ==
--- NOTE | 2024-09-19 09:18 | A.OFFPC_ITS ---
Vital Signs 09/19/24 09:19 Height 5 ft 4 in Weight 216 lb BMI 37.1 BP 132/72 Blood Pressure Location Lt brachial Position Sitting Pulse 69 Pulse Source Pulse Oximeter Pulse Oximetry (%) 97 Oxygen Delivery Method Room Air Intake Visit Reasons: Annual Exam Insolvency Consultant Required: Yes Insolvency Consultant Language: Contour Grinder Name: Ivon Murphy MD Information Interpreted: non-clinical & clinical Accompanied by: Self / Same As Patient Allergies No Known Allergies Allergy (Verified 09/19/24 10:04) Medication List - Last Reconciled 09/19/24 by Ivon Murphy MD allopurinol 100 mg PO DAILY 90 days blood pressure monitor As directed cetirizine 10 mg (10 mL) PO DAILY colchicine 0.6 mg PO BID PRN 5 days [digital blood pressure meter As directed] diphenhydramine-zinc acetate 2-0.1 % (Benadryl Extra Strength) 1 appl topical BID PRN 30 days [disposeable gloves As directed] dupilumab (Dupixent) mg subcut folic acid 1 mg PO DAILY hydrocortisone 2.5% 1 appl topical QD-TID PRN hydrocortisone 1% (Anti-Itch (hydrocortisone)) 1 appl topical TID PRN 30 days ibuprofen 600 mg PO Q8H PRN 30 days levocetirizine 5 mg PO DAILY lidocaine 5% 1 patch topical DAILY PRN 30 days loratadine (Claritin) 10 mg PO DAILY PRN 90 days losartan 100 mg PO DAILY omega-3 fatty acids 1,000 mg PO DAILY omeprazole 40 mg PO DAILY pramoxine-calamine 1-8 % (Caladryl) 1 appl topical TID PRN 30 days Shower Chair As directed triamcinolone acetonide 0.1% 1 appl topical BID 10 days [washable bed pads 6per day As directed] Tobacco use date assessed: 09/19/24 Fall risk assessment: No Falls in past year Last assessed Fall Risk: 09/19/24 Dental Screening Dental Screen Date: 09/19/24 Did you have a dental visit in the last 12 months?: Yes Did you have a dental problem in the last 6 months where you did not have access to dental care?: No Was dental information given to patient?: Patient has dentist HPI HPI Comments History of Present Illness Details The patient is a 74-year-old male presenting for an annual physical examination and chronic disease management. Past medical history includes hypertension, effectively managed with losartan. He manages gout with allopurinol, and eczema with Dupixent. Gargellenywas managed with omeprazole since surgery for gastric ulcers. Colonoscopy is scheduled again in 2025 due to prior cancer history. An ultrasound revealed asymptomatic cholelithiasis. Liver function tests are mildly elevated, consistent with known cirrhosis, while hepatic carcinoma markers were negative. He stopped smoking and alcohol use long ago. The patient reports intimate dysfunction, for which a plan to check testosterone and evaluate treatment was discussed. He is experiencing obstacles obtaining omega-3 supplements due to pharmacy policies. - Up-to-date on vaccinations including p neumococcal and tetanus. - Colonoscopy in 2021 to be repeated in 2025. - Recent abdominal ultrasound showed gal lstones without acute issues. - Labs indicated slightly low hemoglobin and mildly elevated liver enzymes. - Alpha-fetoprotein was negative for daljit er cancer. - Routine monitoring of blood pressure f or hypertension. [facility] Medical History (Updated 09/19/24 @ 12:16 by Ivon Murphy MD) Cirrhosis History of colon cancer PUD (peptic ulcer disease) Arthritis GERD (gastroesophageal reflux disease) Gout HTN (hypertension) Surgical History (Updated 09/19/24 @ 10:08 by Ivon Murphy MD) Hx of colonoscopy History of colon surgery History of tooth extraction History of gastric ulcer Family History Mother No problems noted. Father Prostate cancer Family/Other Mental health disorder Substance use disorder Brother Colon adenocarcinoma Sister Colon adenocarcinoma Lymphoma Social History Household Members: Family Housing: House Alcohol intake: former Patient Tobacco Use Status: Former Tobacco user Tobacco use type: Cigarette e-Cigarette/Vaping Use: Never Used Second Hand Smoke Exposure: No service: No Current occupational status: retired Cognitive needs: Yes Hearing needs: No Vision needs: Yes Questionnaire PHQ-9 Over the last 2 weeks, how often have you been bothered by any of the following problems? 1. Little interest or pleasure in doing things: not at all 2. Feeling down, depressed, or hopeless: not at all 3. Trouble falling or staying asleep, or sleeping too much: not at all 4. Feeling tired or having little energy: not at all 5. Poor appetite or overeating: not at all 6. Feeling bad about yourself - or that you are a failure or have let yourself or your family down: not at all 7. Trouble concentrating on things, such as reading the newspaper or watching television: not at all 8. Moving or speaking so slowly that other people could have noticed. Or the opposite - being so fidgety or restless that you have been moving around a lot more than usual: not at all 9. Thoughts that you would be better off or of hurting yourself in some way: not at all Total score: 0 Depression Screening Interpretation: Negative Depression Screening Done: Yes 52982 - PHQ-9 Billing: Yes Source: Developed by Drs. Ezio Kim, Arlene Miranda, Brayden Deleon and colleagues, with an educational shakila from [employer]. Thrive Questionnaire Date Thrive assessed: 09/19/24 I am a: Patient What is your living situation today?: I have a steady place to live Within the past 12 months, did the food you bought not last and you didn't have the money to get more?: Never true Within the past 12 months, did you worry whether your food would run out before you got money to buy more?: Never true Do you have trouble paying for medicines?: No Do you have trouble getting transportation to medical appointments?: No Do you have trouble paying your heating and electricity bill?: No Do you have trouble taking care of your child, family member or friend?: No Do you have trouble with day-to-day activities such as bathing, preparing meals, shopping, managing finances, etc.?: No Are you currently unemployed and looking for a job?: No Are you interested in more education?: No Please select the resources that you would like help with: None Currently or been in a relationship where the following occur: No concerns reported THRIVE Score: 0 AUDIT C Alcohol Use Questionnaire (AUDIT-C) 1. How often do you have a drink containing alcohol?: Never Total Score: 0 Score Reviewed/Action Taken: No LISA-7 AMB Questionnaire LISA-7 Date LISA - 7 assessed: 09/19/24 Feeling nervous, anxious, or on edge: 0 = Not at all Not being able to stop or control worryin = Not at all Worrying too much about different things: 0 = Not at all Trouble relaxin = Not at all Being so restless that it is hard to sit still: 0 = Not at all Becoming easily annoyed or irritable: 0 = Not at all Feeling afraid as if something awful might happen: 0 = Not at all Total LISA-7 score (0-4 normal; 5-9 mild; 10-14 moderate; 15-21 severe): 0 Source: Developed by Drs. Ezio Kim, Arlene Miranda, Brayden Deleon and colleagues, with an educational shakila from [employer]. LISA-7 Assessment Billing LISA-7 Assessment Tool: LISA-7 Assessment 10710 Review of Systems Const All systems reviewed & are unremarkable except as noted in HPI and below Card Denies chest pain at rest, Denies chest pain with activity, Denies edema, Denies irregular heart rhythm, Denies claudication, Denies dyspnea, Denies dyspnea on exertion, Denies orthopnea, Denies paroxysmal nocturnal dyspnea and Denies slow heart rate Resp Denies cough, Denies dyspnea and Denies dyspnea on exertion GI Denies abdominal pain, Denies change in bowel habits, Denies excessive flatus, Denies nausea and Denies vomiting Denies urinary hesitancy, Denies urinary incontinence and Denies urinary urgency Musc Denies atrophy, Denies deformity and Denies limited range of motion Physical exam (Primary Care) Vital Signs: Last Vital Signs Pulse 69 09/19/24 09:19 BP 132/72 09/19/24 09:19 Pulse Ox 97 09/19/24 09:19 Oxygen Delivery Method Room Air 09/19/24 09:19 BMI result Body Mass Index 37.1 BMI Assessment/Plan discussion: High BMI High, discussed plan: lifestyle, weight reduction, dietary and physical activity Tobacco/Smoking Status: Tobacco use Status Tobacco use date assessed 09/19/24 09/19/24 09:24 Patient Tobacco Use Status Former Tobacco user 09/19/24 09:24 Tobacco use type Cigarette 09/19/24 09:24 e-Cigarette/Vaping Use Never Used 09/19/24 09:24 PHQ-9: PHQ-9 Score PHQ-9: Total score 0 02/26/25 10:09 Depression Screening Interpretation: Negative Thrive Assessment: Date of Thrive Assessment Date Thrive assessed 09/19/24 09/19/24 09:24 Currently or been in a relationship where the following occur: No concerns reported [facility] Head: Yes normal to inspection, Yes normocephalic and Yes atraumatic Ears: external ears normal Eyes General: appearance normal, both eyes and all related structures Eyelids: Yes eyelids normal Conjunctivae: conjunctivae normal Neck Neck: Yes normal visual inspection and Yes supple Resp Effort & Inspection: normal respiratory effort Auscultation: clear to auscultation bilaterally Cardio Jugular venous distension: no JVD Rate: regular rate Rhythm: regular rhythm Heart sounds: S1 normal heart sound present and S2 normal heart sound present GI Inspection: Yes normal to inspection Palpation (GI): Soft to palpation and nontender Auscultation: normal bowel sounds Skin General skin exam: no rashes or lesions noted Neuro General: no focal motor deficits Extrem General: Yes full ROM Psych Appearance: grossly normal Coding Level of Care Code Est Pt Level 3 (09102) Est Pt Prev Care >65y(29189) Diagnoses Physical exam Z00.00 Erectile dysfunction N52.9 Cirrhosis K74.60 History of colon cancer Z85.038 Additional Codes LISA-7 Assessment Billing - LISA-7 Assessment Tool: LISA-7 Assessment 72133 ([id number]) PHQ-9 - 92768 - PHQ-9 Billing: Yes ([id number]) Time Spent (min) 35 Assessment & Plan Assessment & Plan (1) Physical exam: Code(s): Z00.00 - Encounter for general adult medical examination without abnormal findings Category: Medical (2) Erectile dysfunction: Code(s): N52.9 - Male erectile dysfunction, unspecified Category: Medical (3) Cirrhosis: Code(s): K74.60 - Unspecified cirrhosis of liver Category: Medical (4) History of colon cancer: Code(s): Z85.038 - Personal history of other malignant neoplasm of large intestine Category: Medical Plan For chronic conditions, continuation of losartan for hypertension, allopurinol for gout, and appropriate antihistamine and eczema management is confirmed. Omeprazole will continue for GERD. Monitoring for gallstones and cirrhosis will persist without current intervention due to lack of symptoms. We will evaluate testosterone for intimate dysfunction and accommodate prescription preferences for management. Follow-up labs will continually assess liver function, hemoglobin levels, and overall wellbeing. Colonoscopy is deferred as planned until 6. Patient was informed and verbally consented to the use of an ambient scribe for clinic note documentation during this visit. During our discussion, we addressed the negative findings of the hepatic cancer screening and continued management for elevated liver enzymes linked to cirrhosis. I explained the conservative approach for asymptomatic gallstones and affirmed maintaining GERD management with current pharmacotherapy. We discussed exploring treatment for the intimate dysfunction via pharmacy measures. I encouraged adherence to the current therapeutic regimen for all diagnosed conditions, including hypertension and gout. We planned follow-up testing to reassess hemoglobin and liver enzyme status. The patient's understanding and agreement with the proposed assessment and interventions, including upcoming testosterone assessment, were confirmed. Orders: Orders Lipid Panel 4 Months E78.5 - Hyperlipidemia, unspecified Complete Blood Count Auto Diff 4 Months D64.9 - Anemia, unspecified IRON PROFILE 4 Months D64.9 - Anemia, unspecified Uric Acid 4 Months M1A.00X0 - Idiopathic chronic gout, unspecified site, without tophus (tophi) Comprehensive Roma. Panel Fast 4 Months M1A.00X0 - Idiopathic chronic gout, unspecified site, without tophus (tophi) Testosterone, Free/Total Today N52.9 - Male erectile dysfunction, unspecified Medications: New sildenafil administer 30 minutes to 4 hours before activity 50 mg PO DAILY PRN 3 tabs 0RF sexual activity 3 days N52.9 - Male erectile dysfunction, unspecified Refilled omega-3 fatty acids 1,000 mg PO DAILY 90 caps 3RF Patient Instructions: - Continue taking prescribed medications as directed. - Follow a low-risk diet to manage gallstones and liver condition. - Monitor for any abdominal discomfort; report if it occurs. - Obtain lab work in 4 months as scheduled for liver and hemoglobin assessment. - Follow up with pharmacy for omega-3 supplements. - Adhere to regular physical activity and healthy lifestyle practices. - Return for follow-up appointments as recommended.
[2024-09-19 09:19] VITALS: BP 132/72; PULSE 69; O2SAT 97; BMI 37.1
--- OUTSIDE RECORDS SUMMARY | 2024-09-19 10:12 | XMS_ITS ---
Author Organization [facility] Address [address] [place] [address] Care Team Providers Care Tile Trimmer Name Role Phone Ivon Earl Primary Care Provider Unavailab Ezio Dotson Unavailable [phone] ALLERGIES No Known Allergies REASON FOR VISIT Patient presents today for cirrhosis MEDICATIONS Medication SIG (Take, Route, Frequency, Duration) Notes Start Date End Date Status Losartan Potassium-HCTZ 100-25 MG 1 tablet Orally Once a day for 30 day(s) Active Folic Acid 1 MG 1 tablet Orally Once a day for 30 day(s) Active Dupixent 300 MG/2ML Subcutaneous for 28 Active Omeprazole 40 MG 1 capsule 30 minutes before morning meal Orally Once a day for 30 day(s) Active Allopurinol 100 MG 1 tablet Orally Once a day for 30 day(s) Active Fluocinonide 0.05 % APPLY THIN LAYER TO AFFECTED AREAS ON THE BACK TOPICALLY TWICE PER DAY FOR ONE WEEK BREAK FOR ONE WEEK REPEAT NEEDED External for 30 L2089,Unavaila ble Active Ibuprofen 600 MG Oral for 26 A ctive Fish Oil 1000 MG 1 capsule Orally Onc e a day for 30 day(s) Active IMMUNIZATIONS Vaccine Route Administration Date Status Comme nts Influenza Unknown 07/24/2024 Refused SOCIAL HISTORY Tobacco Use: Social History Observation Description Date Details (start date - stop date) Never Smoker NA - NA Sex Assigned At : Social History Observation Description Sex Assigned At Unknown Tobacco Use/Smoking Question Answer Notes Patient is a nonsmoker Alcohol Screen Question Answer Notes Did you have a drink containing alcohol in the p ast year? No Points 0 Interpretation Negative VITAL SIGNS Temperature 98.6 degrees Fahrenheit 07/24/20 24 Blood pressure systolic 000 mm Hg 07/24/20 24 Blood pressure diastolic 00 mm Hg 024 Height 64 in 07/24/2024 Weight 210 lbs 07/24/2024 BMI 36.04 kg/m2 07/24/2024 Encounters Encounter Location Date Provider Diagnosis [facility] [address] [place] [address] 07/24/2024 Ezio Garcia History of colon cancer Z85.038 and Alcoholic cirrhosis of liver without ascites K70.30 ASSESSMENTS Encounter Date Diagnosis Assessment Notes Treatment Notes Treatment Clinical Notes 07/24/2024 History of colon cancer (ICD-10 - Z85.038) We will schedule your next colonoscopy when I see you in 2025 Change colon recall to 06/202607/24/2024 Alcoholic cirrhosis of liver without ascites (ICD-10 - K70.30) PLAN OF TREATMENT Treatment Notes Assessment Notes History of colon cancer We will schedule your next colonoscopy when I see you in 2025 Change colon recall to 06/2026 Pending Test Test Name Order Date LIVER PROFILE 07/24/2024 CBC w DIFF 07/24/2024 ALPHA-FETOPROTEIN,TUMOR MARKER Prothrombin Time INR 07/24/2024 US abdomen complete 07/24/2024 Next Appt Details Follow Up: 1 Year, Reason: Provider Name:Ezio Garcia , 07/23/2025 09:10:00 AM, [address], [address], [place], [address], Progress Notes * Examination Category Sub-Category Detail Notes General Examination GENERAL APPEARANCE: pleasant , well nourished, well developed, in no acute distress HEAD: EYES: sclera non-icteric EARS: NOSE: THROAT: NECK/THYROID: no cervical lymphade nopathy, neck supple HEART: S1, S2 normal CHEST: LUNGS: clear to auscultatio n bilaterally ABDOMEN: normal bowel sounds, no guarding or rigidity, no guarding or rigidity, no masses palpable, soft, nontender, nondistended NEUROLOGIC: alert and oriented SKIN: nonjaundiced, no spi jeanine angiomata EXTREMITIES: no edema PERIPHERAL PULSES: BACK: BREASTS: MUSCULOSKELETAL: MALE GENITOURINARY: LYMPH NODES: RECTAL EXAM: FEMALE GENITOURINARY: ORAL CAVITY: mucosa moist
--- OUTSIDE RECORDS SUMMARY | 2024-09-19 10:12 | XMS_ITS ---
Author Organization [facility] Address [address] [place] [address] Care Team Providers Care Classifying Machine Operator Name Role Phone Ivon Earl Primary Care Provider UnavailEzio Toure Unavailable [phone] ALLERGIES No Known Allergies RESULTS Component Value Reference Range Notes Prothrombin Time INR Reviewed date:07/20/2023 11:03:53 PM Interpretation: Performing Lab:[facility], [address] [place] [phone] Notes/Report: Prothrombin Time 11.9 11.1-13.3 SEC INTERNATIONAL NORM RATIO 1.0 0.9-1.1 INTERNATIONAL NORMALIZED RATIO (INR) REFERENCE RANGES Reference Range For patients not on anticoagulant therapy: 0.9 - 1.1 INR ranges for oral anticoagulant therapy: For prevention and treatment of venous thrombosis and pulmonary embolism: 2.0 - 3.0 For acute myocardial infarction with aspirin therapy: 2.0 - 3.0 For acute myocardial infarction without aspirin therapy: 3.0 - 4.0 For patients with mechanical prosthetic heart valves: 2.5 - 3.5 REASON FOR VISIT Patient presents today for a routine appt. MEDICATIONS Medication SIG (Take, Route, Frequency, Duration) Notes Start Date End Date Status Fish Oil 1000 MG 1 capsule Orally Onc e a day for 30 day(s) Active Omeprazole 40 MG 1 capsule 30 minutes before morning meal Orally Once a day for 30 day(s) Active Allopurinol 100 MG 1 tablet Orally Once a day for 30 day(s) Active Losartan Potassium-HCTZ 100-25 MG 1 tablet Orally Once a day for 30 day(s) Active Folic Acid 1 MG 1 tablet Orally Once a day for 30 day(s) Active Dupixent 300 MG/2ML Subcutaneous for 28 Active SOCIAL HISTORY Tobacco Use: Social History Observation Description Date Details (start date - stop date) Never Smoker NA - NA Sex Assigned At : Social History Observation Description Sex Assigned At Unknown Tobacco Use/Smoking Question Answer Notes Patient is a nonsmoker Alcohol Screen Question Answer Notes Did you have a drink containing alcohol in the p ast year? No Points 0 Interpretation Negative PROBLEMS Problem Type ICD Code Onset Dates Problem Status W/U Status Risk SNOMED Code Notes Problem Celiac disease (K90.0) Active confirmed 032011280 VITAL SIGNS Temperature 97.8 degrees Fahrenheit 07/19/20 23 Blood pressure systolic 00 mm Hg 07/19/20 23 Blood pressure diastolic 00 mm Hg 023 Height 64 in 07/19/2023 Weight 213 lbs 07/19/2023 BMI 36.56 kg/m2 07/19/2023 Encounters Encounter Location Date Provider Diagnosis [facility] [address] [place] [address] 07/19/2023 Ezio Garcia History of colon cancer Z85.038 ; Alcoholic cirrhosis of liver without ascites K70.30 and Celiac disease K90.0 ASSESSMENTS Encounter Date Diagnosis Assessment Notes Treatment Notes Treatment Clinical Notes 07/19/2023 History of colon cancer (ICD-10 - Z85.038) 07/19/2023 Alcoholic cirrhosis of liver without ascites (ICD-10 - K70.30) 07/19/2023 Celiac disease (ICD-10 - K90.0) PLAN OF TREATMENT Pending Test Test Name Order Date LIVER PROFILE 07/19/2023 ALPHA-FETOPROTEIN,TUMOR MARKER 3 CELIAC PANEL #10 07/19/2023 US abdomen complete 07/19/2023 Next Appt Details Follow Up: 1 Year, Reason: Provider Name:Ezio Garcia , 07/23/2025 09:10:00 AM, [address], [address], [place], [address], Progress Notes * Examination Category Sub-Category Detail [...]
--- OUTSIDE RECORDS SUMMARY | 2024-09-19 10:12 | XMS_ITS | Clinical Summary ---
Author Organization [facility] Address [address] [place] [address] [address] [place] [address] Care Team Providers Care Computer Programmer Chief Name Role Phone Unavailable Primary Care Provider [...] Health Maintenance Due Date Last Done Comments Depression Screening 1950 Alcohol/Substance Use Screening 1960 Tobacco Screening 1960 Zoster Vaccines (1 of 2) 1998 DTaP/Tdap/Td Vaccines (1 - Tdap) 07/25/2019 07/24/2019 Pneumococcal Vaccine: 50+ Years (2 of 2 - PPSV23) 07/24/2020 07/24/2019 RSV Patients and Patients Aged [...] ?? Chaparro AZEVEDO et al. DREW. 2013;310(19): 8010-3052 ?? (http://FedBid.Netsocket.ShopCity.com/faq/JGN774) Non-HDL Cholesterol 113 <130 mg/dL (calc) [facility] Comment: For patients with diabetes plus 1 major ASCVD risk ?? factor, treating to a non-HDL-C goal of <100 mg/dL ?? (LDL-C of <70 mg/dL) is considered a therapeutic ?? option. Triglycerides 53 <150 mg/dL [facility] 07/30/2020 9:36 AM EST us Atif Smith MD LAB BLOOD ORDERABLES Final Result [facility] [address] from Last 3 Months or Most Recently Relevant to Health Maintenance
--- OUTSIDE RECORDS SUMMARY | 2024-09-19 10:12 | XMS_ITS | Patient Health Record ---
Author Organization [facility] Address [address] [place] [address] Care Team Providers Care Butt Trimmer Name Role Phone Ivon Earl Primary Care Provider UnavailEzio Toure Unavailable [phone] ALLERGIES No Known Allergies RESULTS Component Value Reference Range Notes Complete Blood Count Auto Di ff Reviewed date:08/15/2024 12:45:23 PM Interpretation: Performing Lab:[facility], [address] [place] [phone] Notes/Report: White Blood Count 5.0 4.8-10.8 X10*3/uL Red Blood Count 4.47 4.60-5.80 X10*6/uL Hemoglobin 13.2 14.0-18.0 g/dl Hematocrit 40.4 42.0-52.0 % Mean Corpuscular Volume 90.4 80.0-98.0 fL Mean Corpuscular Hemoglobin 29.5 27.0-33.0 pg Mean Corpuscular HGB Conc 32.7 31.0-36.0 g/dl Red Cell Distribution Width 13.2 11.0-16.0 % Platelet Count 186 160-400 X10*3/uL Mean Platelet Volume 10.5 9.4-12.4 fL Neutrophils Percent Auto 52.7 45-73 % Imm Gran Pct Auto 0.2 0.0-0.4 % Lymphocytes Percent Auto 27.8 20-40 % Monocytes Percent Auto 11.1 2-11 % Eosinophils Percent Auto 7.4 0-4 % Basophils Percent Auto 0.8 0-2 % NRBC Pct Auto 0.0 0.0-0.2 /100WBC Neutrophils Absolute Auto 2.7 2.0-8.3 x10*3/u L Imm Gran Abs Auto 0.01 0.00-0.03 X10*3/uL Lymphocytes Absolute Auto 1.4 1.2-4.9 X10*3/u L Monocytes Absolute Auto 0.6 0.1-1.2 X10*3/uL Eosinophils Absolute Auto 0.4 0.0-0.4 X10*3/u L Basophils Absolute Auto 0.0 0.0-0.2 X10*3/uL NRBC Abs Auto 0.000 0.0-0.012 X10*3/uL Prothrombin Time INR Reviewed date:08/15/2024 12:45:30 PM Interpretation: Performing Lab:[address] [phone] Notes/Report: Prothrombin Time 11.8 10.9-12.4 SEC INTERNATIONAL NORM RATIO 1.0 0.9-1.1 INTERNATIONAL [...] mechanical prosthetic heart valves: 2.5 - 3.5 Liver Panel Reviewed date:08/15/2024 12:45:38 PM Interpretation: Performing Lab:[address] [phone] Notes/Report: Bilirubin Total 0.9 0.0-1.0 mg/dL Bilirubin Direct 0.3 0.0-0.5 mg/dL Aspartate Amino Transferase 50 5-37 U/L Alanine Aminotransferase 46 0-40 U/L Total Protein 7.4 6.5-8.0 g/dL Albumin Level 3.8 3.5-5.0 g/dL Alkaline Phosphatase 79 39-117 U/L Alpha Fetoprotein Reviewed date:08/17/2024 06:31:29 PM Interpretation: Performing Lab:[address] [phone] Notes/Report: Alpha Fetoprotein 2.0 <6.1 ng/mL This test was performed using the [place] chemiluminescent method. Values obtained from different assay methods cannot be used interchangeably. AFP levels, regardless of value, should not be interpreted as absolute evidence of the presence or absence of disease. THIS TEST WAS PERFORMED AT: [facility] [address] [place] [phone] ALEX CHEUNG MD US abdomen complete (Not yet reviewed by provider) Interpretation: Performing Lab: Notes/Report: [address] [address] Ultrasound Report Signed Patient: Daniel Dietz MR#: [id number] : 1950 Acct:[id number] Age/Sex: 73 / M ADM Date: 08/15/24 Loc: HO.US Attending Dr: Ezio Garcia MD Ordering Physician: Ezio Garcia MD Date of Service: 08/15/24 Procedure(s): US abdomen complete Accession Number(s): [id number] cc: Ivon Earl MD; Ezio Garcia MD CLINICAL HISTORY: cirrhosis US abdomen complete Comparison: 08/17/2023 Findings: The visualized pancreas is normal. Coarse hepatic echotexture (known cirrhosis). Liver size not measured. There is no intrahepatic bile duct dilatation. The common duct is 2 mm in diameter. Distended gallbladder with stone and adenomyomatosis. Sonographic Massey's sign not assessed. The main portal vein is antegrade. The right kidney is 11.3 cm in length. The left kidney is 11.9 cm in length. A few subcentimeter renal cysts. Otherwise unremarkable kidneys. The spleen is normal. Spleen measures 10 cm in length. No ascites. IMPRESSION: 1. No hepatic mass lesion seen. 2. Distended gallbladder with stone and adenomyomatosis. Sonographic Massey's sign not assessed. This document has been electronically signed by: Aline Martinez MD on 08/16/2024 09:14:35 Dictated By: Aline Martinez MD Signed By: <Electronically signed by Aline Martinez MD in OV> 08/16/24914 DD/ 3 TD/TT: 08/16/24913 Forensic Psychiatrist: REASON FOR REFERRAL No Information MEDICATIONS Medication SIG (Take, Route, Frequency, Duration) Notes Start Date End Date Status Losartan Potassium-HCTZ 100-25 MG 1 tablet Orally Once a day for 30 day(s) Active Folic Acid 1 MG 1 tablet Orally Once a day for 30 day(s) Active Dupixent 300 MG/2ML Subcutaneous for 28 Active Fluocinonide 0.05 % APPLY THIN LAYER [...] Once a day for 30 day(s) Active IMMUNIZATIONS Vaccine Route Administration Date Status Comme nts Influenza Unknown 06/10/2021 Administered Influenza Unknown 07/24/2024 Refused SOCIAL HISTORY Tobacco [...] W/U Status Risk SNOMED Code Notes Problem Encounter for screening for malignant neoplasm of colon (Z12.11) Active confirmed 454300166 Problem Alcoholic cirrhosis of liver without ascites (K70.30) Active confirmed 959723474 Problem Celiac disease (K90.0) Active confirmed 777211715 Problem Intestinal bypass and anastomosis status (Z98.0) Active confirmed History of gastrointestinal tract bypass (826842421) Problem History of colon cancer (Z85.038) Active confirmed 453443135 Problem Diverticulosis of colon (K57.30) Active confirmed Diverticulosi s of colon (010182981) VITAL SIGNS Temperature 98.6 degrees Fahrenheit 07/24/2024 Blood pressure diastolic 00 mm Hg 07/24/2024 Height 64 in 07/24/2024 Blood pressure systolic 000 mm Hg 07/24/2024 Weight 210 lbs 07/24/2024 BMI 36.04 kg/m2 07/24/2024 Encounters Encounter Location Date Provider Diagnosis [facility] [address] [place] [address] 07/24/2024 Ezio Garcia History of colon cancer Z85.038 and Alcoholic cirrhosis of liver without ascites K70.30 ASSESSMENTS Encounter Date Diagnosis Assessment Notes Treatment Notes Treatment Clinical Notes 07/24/2024 Alcoholic cirrhosis of liver without ascites (ICD-10 - K70.30) 07/24/2024 History of colon cancer (ICD-10 - Z85.038) We will schedule your next colonoscopy when I see you in 2025 Change colon recall to 06/2026 PLAN OF TREATMENT Pending Test Test Name Order Date LIVER PROFILE 07/19/2023 LIVER PROFILE 10/29/2021 LIVER PROFILE 07/24/2024 CBC w DIFF 07/24/2024 CBC w DIFF 10/29/2021 PROTHROMBIN TIME (PT, INR) 10/29/2021 ALPHA-FETOPROTEIN,TUMOR MARKER ALPHA-FETOPROTEIN,TUMOR MARKER 3 CELIAC PANEL #10 07/19/2023 US ABD 10/29/2021 Prothrombin Time INR 07/24/2024 Alpha Fetoprotein 10/29/2021 US abdomen complete 08/16/2024 US abdomen complete 07/24/2024 US abdomen complete 07/19/2023 Future Test Test Name Order Date COLONOSCOPY 10/29/2021 Next Appt Details Provider Name:Ezio Garcia , 07/23/2025 09:10:00 AM, [address], [address], [place], [address], Insurance Providers Payer Name Payer Address Payer Phone Subscriber Number Group Number Insured Name Patient Relationship to Insured Coverage Start Date Coverage End Date [facility] [address] Attn Claims ROSA Strange [id number] DANIEL DIETZ Self - patient is the insured MEDICAL (GENERAL) HISTORY Medical History History ICD Code HTN Colon cancer--surgery in 2011-he denies any history of chemotherapy nor radiation treatments-- he had negative colonoscopies with Dr. Montoya in September of 2020 and August of 2020 which are described as unremarkable but the preps in both procedures were described also as suboptimal Cirrhosis--EtOH--stopped 30 years ago--upper endoscopy in November of [address] Montoya was negative for varices. The report describes a gastrojejunostomy and some gastritis Denies ND,DM,CVA,Lung disease,renal dise ase Peptic ulcer disease with GI bleeding an d surgery as described below Negative screening colonoscopy in 12/2021 Reports a history of celiac disease but not on a gluten-free diet--negative laboratories for celiac disease in June of 2023 Gallstones, but asymptomatic --- reviewed with patient and his son at the 07/24/2024 OV Surgical History Surgery Date(Month/Year) Colon cancer with surgery in [place] 2011 Ulcer surgery 30 yrs ago--reports remova l of part of the stomach
--- OUTSIDE RECORDS SUMMARY | 2024-09-19 10:13 | XMS_ITS ---
Author Organization [facility] Address [address] [place] [address] Care Team Providers Care Solderer Name Role Phone Ivon Earl Primary Care Provider Unavailab Ezio Dotson [phone] Encounters Encounter Location Date Provider Diagnosis [facility] [address] [place] [address] 09/03/2023 Ezio Garcia PLAN OF TREATMENT Next Appt Details Provider Name:Ezio Garcia , 07/23/2025 09:10:00 AM, [address], [address], [place], [address],
== END 2024-09-19 10:17 | disposition home or self-care (01) ==
PROVIDERS: PCP Internal Medicine; Visit Provider Internal Medicine
DX: Z00.00 Encounter for general adult medical examination without abnormal findings (principal); N52.9 Male erectile dysfunction, unspecified; K74.60 Unspecified cirrhosis of liver; Z85.038 Personal history of other malignant neoplasm of large intestine

== ENCOUNTER → 2024-09-19 09:12 | Outpatient (BNVA) | payer OTHER, SELFPAY | PROVIDERS: PCP Internal Medicine; Visit Provider Internal Medicine | DX: Z00.00 Encounter for general adult medical examination without abnormal findings (principal); N52.9 Male erectile dysfunction, unspecified; K74.60 Unspecified cirrhosis of liver; Z85.038 Personal history of other malignant neoplasm of large intestine | CPT/HCPCS: 96127; 99212; 99397 ==

== ENCOUNTER 2025-01-02 09:18 | Outpatient (REF) | payer OTHER, SELFPAY ==
[2025-01-02 09:33] LABS: MANUAL DIFF FLAG NO
--- OUTSIDE RECORDS SUMMARY | 2025-01-02 09:59 | XMS_ITS | Patient Health Record ---
Author Organization [facility] Address [address] [place] [address] Care Team Providers Care Post Office Clerk Name Role Phone Ivon Earl Primary Care Provider UnavailEzio Toure Unavailable [phone] Allergies No Known Allergies Results Component Value Reference Range Notes Complete Blood Count Auto Di ff Reviewed date:08/15/2024 12:45:23 PM Interpretation: Performing Lab:[facility], [address] [place] [id number] Notes/Report: White Blood Count 5.0 4.8-10.8 X10*3/uL [...] INR Reviewed date:08/15/2024 12:45:30 PM Interpretation: Performing Lab:[address] [phone] Notes/Report: Prothrombin Time 11.8 10.9-12.4 SEC [employer]NATIONAL [...] Panel Reviewed date:08/15/2024 12:45:38 PM Interpretation: Performing Lab:[address] [phone] Notes/Report: Bilirubin Total 0.9 0.0-1.0 mg/dL Bilirubin Direct 0.3 0.0-0.5 mg/dL Aspartate Amino Transferase 50 5-37 U/L Alanine Aminotransferase 46 0-40 U/L Total Protein 7.4 6.5-8.0 g/dL Albumin Level 3.8 3.5-5.0 g/dL Alkaline Phosphatase 79 39-117 U/L Alpha Fetoprotein Reviewed date:08/17/2024 06:31:29 PM Interpretation: Performing Lab:[address] [address] Notes/Report: Alpha Fetoprotein 2.0 <6.1 ng/mL This test was performed using the Andrew Becca chemiluminescent method. Values obtained from different assay methods cannot be used interchangeably. AFP levels, regardless of value, should not be interpreted as absolute evidence of the presence or absence of disease. THIS TEST WAS PERFORMED AT: [facility] [address] [place] [phone] ALEX CHEUNG MD US abdomen complete (Not yet reviewed by provider) Interpretation: Performing Lab: Notes/Report: [address] [address] Ultrasound Report Signed Patient: Daniel Dietz MR#: [id number] : 1950 Acct:[id number] Age/Sex: 73 / M ADM Date: 08/15/24 Loc: HO.US Attending Dr: Ezio Garcia MD Ordering Physician: Ezio Garcia MD Date of Service: 08/15/24 Procedure(s): US abdomen complete Accession Number(s): [id number] cc: Ivon Earl MD; Ezio Garcia MD [...] in OV> 08/16/24914 DD/ 3 TD/TT: 08/16/24913 Bleach Maker: [address] [address] Ultrasound Report Signed Patient: Daniel Dietz MR#: [id number] : 1950 Acct:[id number] Age/Sex: 73 / M ADM Date: 08/15/24 Loc: HO.US Attending Dr: Ezio Garcia MD Ordering Physician: Ezio Garcia MD Date of Service: 08/15/24 Procedure(s): US abdomen complete Accession Number(s): [id number] cc: Ivon Earl MD; Ezio Garcia MD CLINICAL HISTORY: cirrhosis US abdomen complete Comparison: 08/17/2023 Findings: The visualized pancr eas is normal. Coarse hepatic echotexture (known cirrhosis). Liver size not measured. There is no intrahepatic bile duct dilatation. The common duct is 2 mm in diameter. Distended gallbladde r with stone and adenomyomatosis. Sonographic Massey's sign not assessed. The main portal vein is antegrade. The right kidney is 11.3 cm in length. The left kidney is 1 1.9 cm in length. A few subcentimeter renal cysts. Otherwise unremarkable kidneys. The spleen is normal . Spleen measures 10 cm in length. No ascites. IMPRESSION: 1. No hepatic mass lesion seen. 2. Distended gallbladder with stone and adenomyomatosis. Sonographic Massey's sign not assessed. This document has be en electronically signed by: Aline Martinez MD on 08/16/2024 09:14:35 Dictated By: Frank Martinez MD Signed By: <Electronically signed by Aline Martinez MD in OV> 08/16/24914 DD/ 3 TD/TT: 08/16/24913 Bleach Maker: Reason For Referral No Information Medications Medication SIG (Take, Route, Frequency, Duration) Notes [...] Once a day for 30 day(s) Active Immunizations Vaccine Route Administration Date Status Comme nts Influenza Unknown 06/10/2021 Administered Influenza Unknown 07/24/2024 Refused Social History Tobacco Use: Social History Observation Description Date Details (start date - stop date) Never Smoker NA - NA Tobacco Use/Smoking Question Answer Notes Patient is a nonsmoker Alcohol Screen Question Answer Notes Did you have a drink containing alcohol in the p ast year? 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 Problems Problem Type SNOMED Code ICD Code Onset Dates Problem Status W/U Status Risk Notes Problem [id number] Encounter for screening for malignant neoplasm of colon (Z12.11) Active confirmed Problem 848493419 Alcoholic cirrhosis of liver without ascites (K70.30) Active confirmed Problem 019578813 Celiac disease (K90.0) Active confirmed Problem History of gastrointestinal tract bypass (729372495) Intestinal bypass and anastomosis status (Z98.0) Active confirmed Problem 390720106 History of colon cancer (Z85.038) Active confirmed Problem Diverticulosis of colon (776530236) Diverticulosis of colon (K57.30) Active confirmed Vital Signs Temperature 98.6 degrees Fahrenheit 07/24/2024 Blood pressure diastolic 00 mm Hg 07/24/2024 Height 64 in 07/24/2024 Blood pressure systolic 000 mm Hg 07/24/2024 Weight 210 lbs 07/24/2024 BMI 36.04 kg/m2 07/24/2024 Encounters Encounter Location Date Provider Diagnosis [facility] [address] [place] [address] 07/24/2024 Ezio Garcia History of colon cancer Z85.038 and Alcoholic cirrhosis of liver without ascites K70.30 Assessments Encounter Date Diagnosis (ICD Code) Assessment Notes Treatment Notes Treatment Clinical Notes Section Notes 07/24/2024 Alcoholic cirrhosis of liver without ascites (ICD-10 - K70.30) Overall, Daniel appears quite well. We did review his underlying liver disease and cirrhosis in detail. At this point things remain very stable as he has been abstinent from alcohol for many years now. I have scheduled him for a followup abdominal ultrasound and laboratories for his chronic liver disease, and I advised him and his son of the need for that on a yearly basis. We did review the underlying history of gallstones but those have remained asymptomatic. We did review potential symptoms and the need to go to the ER and seek surgical consultation if they become symptomatic with abdominal pain or jaundice. I will plan to see him in one year for followup of his liver disease and at that time we'll schedule him for a followup colonoscopy as that will be over 3 years since his last exam. I did advise his son that he and his siblings should have a colonoscopy by age 40 due to his father and paternal uncle's history of colon cancer. When I see him for his next colonoscopy we may want to have him undergo an upper endoscopy to assess for any esophageal varices, although based on all of his laboratories and good clinical appearance his liver disease remains quite stable and he has excellent liver function. Of note, I advise him to avoid using any NSAIDs due to their potential to cause bleeding. I advised him that he could use occasional Tylenol. I did advise him to call me prior to his next visit if he has any problems or questions I can be of assistance with. Daniel and his son were very comfortable with this plan. Thank you again for allowing me to participate in Daniel's care. I shall continue to keep you advised of his progress. 07/24/2024 History of colon cancer (ICD-10 - Z85.038) We will schedule your next colonoscopy when I see you in 2025 Change colon recall to 06/2026 Overall, Daniel appears quite well. We did review his underlying liver disease and cirrhosis in detail. At this point things remain very stable as he has been abstinent from alcohol for many years now. I have scheduled him for a followup abdominal ultrasound and laboratories for his chronic liver disease, and I advised him and his son of the need for that on a yearly basis. We did review the underlying history of gallstones but those have remained asymptomatic. We did review potential symptoms and the need to go to the ER and seek surgical consultation if they become symptomatic with abdominal pain or jaundice. I will plan to see him in one year for followup of his liver disease and at that time we'll schedule him for a followup colonoscopy as that will be over 3 years since his last exam. I did advise his son that he and his siblings should have a colonoscopy by age 40 due to his father and paternal uncle's history of colon cancer. When I see him for his next colonoscopy we may want to have him undergo an upper endoscopy to assess for any esophageal varices, although based on all of his laboratories and good clinical appearance his liver disease remains quite stable and he has excellent liver function. Of note, I advise him to avoid using any NSAIDs due to their potential to cause bleeding. I advised him that he could use occasional Tylenol. I did advise him to call me prior to his next visit if he has any problems or questions I can be of assistance with. Daniel and his son were very comfortable with this plan. Thank you again for allowing me to participate in Daniel's care. I shall continue to keep you advised of his progress. Plan Of Treatment Pending Test Test Name Order Date LIVER PROFILE 07/24/2024 LIVER PROFILE 10/29/2021 LIVER PROFILE 07/19/2023 CBC w DIFF 07/24/2024 CBC w DIFF 10/29/2021 PROTHROMBIN TIME (PT, INR) 10/29/2021 ALPHA-FETOPROTEIN,TUMOR MARKER 3 ALPHA-FETOPROTEIN,TUMOR MARKER 4 CELIAC PANEL #10 07/19/2023 US ABD 10/29/2021 Prothrombin Time INR 07/24/2024 Alpha Fetoprotein 10/29/2021 US abdomen complete 07/19/2023 US abdomen complete 07/24/2024 US abdomen complete 08/16/2024 Future Test Test Name Order Date COLONOSCOPY 10/29/2021 Next Appt Details Provider Name:Ezio Reddy Radha , 07/23/2025 09:10:00 AM, [address], [address], [place], [address], Insurance Providers Payer Name Payer Address Payer Phone Subscriber Number Group Number Insured Name Patient Relationship to Insured Coverage Start Date Coverage End Date [facility] [address] Attn Claims ROSA Strange [id number] DANIEL DIETZ Self - patient is the insured Medical (General) History Medical History History ICD Code HTN Colon [...] describes a gastrojejunostomy and some gastritis Denies KS,DM,CVA,Lung disease,renal dise ase Peptic ulcer disease with GI bleeding an d surgery as described below Negative screening colonoscopy in 12/2021 Reports a history of celiac disease but not on a gluten-free diet--negative laboratories for celiac disease in June of 2023 Gallstones, but asymptomatic --- reviewed with patient and his son at the 07/24/2024 OV Surgical History Surgery Date(Month/Year) Colon cancer with surgery in [place] 2011 Ulcer surgery 30 yrs ago--reports remova l of part of the stomach
[2025-01-02 10:03] LABS: Basophils Absolute Auto 0.1 X10*3/uL (0.0-0.2); Basophils Percent Auto 0.8 % (0-2); Eosinophils Absolute Auto 0.5 X10*3/uL (0.0-0.4); Eosinophils Percent Auto 7.6 % (0-4); Hematocrit 40.5 % (42.0-52.0); Hemoglobin 13.4 g/dl (14.0-18.0); Imm Gran Abs Auto 0.03 X10*3/uL (0.00-0.03); Imm Gran Pct Auto 0.5 % (0.0-0.4); Lymphocytes Absolute Auto 1.9 X10*3/uL (1.2-4.9); Lymphocytes Percent Auto 31.5 % (20-40); Mean Corpuscular HGB Conc 33.1 g/dl (31.0-36.0); Mean Corpuscular Hemoglobin 29.6 pg (27.0-33.0); Mean Corpuscular Volume 89.6 fL (80.0-98.0); Mean Platelet Volume 10.5 fL (9.4-12.4); Monocytes Absolute Auto 0.7 X10*3/uL (0.1-1.2); Monocytes Percent Auto 11.6 % (2-11); Neutrophils Absolute Auto 2.9 x10*3/uL (2.0-8.3); Platelet Count 196 X10*3/uL (160-400); Red Blood Count 4.52 X10*6/uL (4.60-5.80); Red Cell Distribution Width 13.5 % (11.0-16.0)
[2025-01-02 10:27] LABS: Albumin Level 4.3 g/dL (3.5-5.0); Alkaline Phosphatase 79 U/L (39-117); Anion Gap 9 (12-20); Aspartate Amino Transferase 55 U/L (5-37); Bilirubin Total 0.9 mg/dL (0.0-1.0); Blood Urea Nitrogen 26 mg/dL (9-16); Calcium 9.6 mg/dL (8.4-10.2); Carbon Dioxide 32 mmol/L (22-29); Chloride 103 mmol/L (96-108); Cholesterol 181 mg/dL (<200); Estimated Glomerular Filt Rate > 60; Glucose Fasting 105 mg/dL (60-99); HDL Cholesterol 50 mg/dL (>40); Iron 78 mcg/dL (45-160); LDL Cholesterol Calculated 117 mg/dL (<100); Percent Iron Saturation 23 % (15-50); Potassium 4.9 mmol/L (3.3-5.1); Sodium 139 mmol/L (135-145); Total Iron Binding Capacity 334 mcg/dL (228-428); Total Protein 7.4 g/dL (6.5-8.0); Triglycerides 73 mg/dL (<150); Unsaturated Iron Binding 256 ug/dL; Uric Acid 4.6 mg/dL (3.4-7.0)
[2025-01-02 10:49] LABS: Alanine Aminotransferase 55 U/L (0-40)
[2025-01-06 20:33] LABS: Testosterone, Free 37.4 pg/mL (30.0-135.0); Testosterone, Total 425 ng/dL (250-1100)
== END 2025-01-02 09:19 | disposition home or self-care (01) ==
LOC: HO.LAB 09:18
PROVIDERS: PCP Internal Medicine; Visit Provider Internal Medicine
DX: E78.5 Hyperlipidemia, unspecified (principal); M1A.00X0 Idiopathic chronic gout, unspecified site, without tophus (tophi); D64.9 Anemia, unspecified; N52.9 Male erectile dysfunction, unspecified
CPT/HCPCS: 36415; 80053; 80061; 83540; 84402; 84403; 84550; 85025

== ENCOUNTER 2025-02-20 09:17 | Outpatient (AMB) | payer OTHER, SELFPAY ==
--- NOTE | 2025-02-20 09:20 | MHC.PC.OV ---
Vital Signs 02/20/25 09:22 Height 5 ft 4 in Weight 213 lb BMI 36.6 BP 130/70 Blood Pressure Location Lt brachial Position Sitting Intake Visit Reasons: 4mth f/u Intake Note: Patient here for a 4 month follow up Shift Supervisor Film Processing Required: No Accompanied by: Self / Same As Patient Allergies No Known Allergies Allergy (Verified 02/20/25 09:29) Medication List - Last Reconciled 02/20/25 by Ivon Murphy MD allopurinol 100 mg PO DAILY 90 days blood pressure monitor As directed cetirizine 10 mg (10 mL) PO DAILY colchicine 0.6 mg PO BID PRN 5 days [digital blood pressure meter As directed] diphenhydramine-zinc acetate 2-0.1 % (Benadryl Extra Strength) 1 appl topical BID PRN 30 days [disposeable gloves As directed] dupilumab (Dupixent) mg subcut folic acid 1 mg PO DAILY hydrocortisone 2.5% 1 appl topical QD-TID PRN hydrocortisone 1% (Anti-Itch (hydrocortisone)) 1 appl topical TID PRN 30 days ibuprofen 800 mg PO Q8H PRN 90 days levocetirizine 5 mg PO DAILY lidocaine 5% 1 patch topical DAILY PRN 30 days loratadine (Claritin) 10 mg PO DAILY PRN 90 days losartan 100 mg PO DAILY omega-3 fatty acids 1,000 mg PO DAILY omeprazole 40 mg PO DAILY pramoxine-calamine 1-8 % (Caladryl) 1 appl topical TID PRN 30 days Shower Chair As directed sildenafil 50 mg PO DAILY PRN 3 days triamcinolone acetonide 0.1% 1 appl topical BID 10 days [washable bed pads 6per day As directed] Tobacco use date assessed: 09/19/24 Fall risk assessment: No Falls in past year Last assessed Fall Risk: 02/20/25 Dental Screening Dental Screen Date: 02/20/25 Did you have a dental visit in the last 12 months?: No Did you have a dental problem in the last 6 months where you did not have access to dental care?: No Was dental information given to patient?: Patient has dentist HPI HPI Comments History of Present Illness Details The patient is a 74-year-old male presenting with the management of chronic conditions including cirrhosis, gout, and anemia. Cirrhosis has been a longstanding condition, with liver enzymes consistently elevated, and is currently managed by a wire preparation machine tender. The patient is not experiencing any significant symptoms related to cirrhosis at this time. Gout is managed with allopurinol, and the patient reports no recent flare-ups. The patient is adherent to the medication regimen and denies any adverse effects. The patient also reports allergic rhinitis, for which cetirizine is taken as needed. There are no reported side effects from the medication. Erectile dysfunction is managed with sildenafil, and the patient reports satisfactory results. Testosterone levels have been assessed and are within normal limits. Anemia has been noted, with a slight decrease in hemoglobin levels, but no active bleeding is reported. Renal function remains stable despite the use of ibuprofen for pain management. [facility] Medical History (Updated 02/20/25 @ 09:37 by Ivon Murphy MD) Cirrhosis History of colon cancer PUD (peptic ulcer disease) Arthritis GERD (gastroesophageal reflux disease) Gout HTN (hypertension) Surgical History Hx of colonoscopy History of colon surgery History of tooth extraction History of gastric ulcer Family History Mother No problems noted. Father Prostate cancer Family/Other Mental health disorder Substance use disorder Brother Colon adenocarcinoma Sister Colon adenocarcinoma Lymphoma Social History Household Members: Family Housing: House Alcohol intake: former Patient Tobacco Use Status: Former Tobacco user Tobacco use type: Cigarette e-Cigarette/Vaping Use: Never Used Second Hand Smoke Exposure: No service: No Current occupational status: retired Cognitive needs: Yes Hearing needs: No Vision needs: Yes Questionnaire Thrive Questionnaire Date Thrive assessed: 09/19/24 I am a: Patient What is your living situation today?: I have a steady place to live Within the past 12 months, did the food you bought not last and you didn't have the money to get more?: Never true Within the past 12 months, did you worry whether your food would run out before you got money to buy more?: Never true Do you have trouble paying for medicines?: No Do you have trouble getting transportation to medical appointments?: No Do you have trouble paying your heating and electricity bill?: No Do you have trouble taking care of your child, family member or friend?: No Do you have trouble with day-to-day activities such as bathing, preparing meals, shopping, managing finances, etc.?: No Are you currently unemployed and looking for a job?: No Are you interested in more education?: No Please select the resources that you would like help with: None Currently or been in a relationship where the following occur: No concerns reported THRIVE Score: 0 LISA-7 AMB Questionnaire LISA-7 Date LISA - 7 assessed: 09/19/24 Source: Developed by Drs. Ezio Kim, Arlene Miranda, Brayden Deleon and colleagues, with an educational shakila from [employer]. Review of Systems Const All systems reviewed & are unremarkable except as noted in HPI and below Card Denies chest pain at rest, Denies chest pain with activity, Denies edema, Denies irregular heart rhythm, Denies claudication, Denies dyspnea, Denies dyspnea on exertion, Denies orthopnea, Denies paroxysmal nocturnal dyspnea and Denies slow heart rate Resp Denies cough, Denies dyspnea and Denies dyspnea on exertion GI Denies abdominal pain, Denies change in bowel habits, Denies excessive flatus, Denies nausea and Denies vomiting Denies urinary hesitancy, Denies urinary incontinence and Denies urinary urgency Musc Denies abnormal gait, Denies atrophy, Denies deformity and Denies limited range of motion Skin/Breast Denies bleeding lesions, Denies changing lesions and Denies rash Neuro Denies abnormal gait and Denies lack of coordination Physical exam (Primary Care) Vital Signs: Last Vital Signs BP 130/70 02/20/25 09:22 BMI result Body Mass Index 36.6 BMI Assessment/Plan discussion: High BMI High, discussed plan: lifestyle, weight reduction, dietary and physical activity Tobacco/Smoking Status: Tobacco use Status Tobacco use date assessed 09/19/24 02/20/25 09:25 Patient Tobacco Use Status Former Tobacco user 02/20/25 09:25 Tobacco use type Cigarette 02/20/25 09:25 e-Cigarette/Vaping Use Never Used 02/20/25 09:25 Thrive Assessment: Date of Thrive Assessment Date Thrive assessed 09/19/24 02/20/25 09:25 Currently or been in a relationship where the following occur: No concerns reported Resp Effort & Inspection: normal respiratory effort Auscultation: clear to auscultation bilaterally Cardio Jugular venous distension: no JVD Rate: regular rate Rhythm: regular rhythm Heart sounds: S1 normal heart sound present and S2 normal heart sound present Extrem General: Yes full ROM Coding Level of Care Code Est Pt Level 4 (75478) Complex EM visit Add On G2211 Diagnoses Cirrhosis K74.60 Primary hypertension I10 Hypertension type: primary hypertension Gastroesophageal reflux disease, unspecified whether esophagitis present K21.9 Esophagitis presence: esophagitis presence not specified Anemia D64.9 Idiopathic chronic gout without tophus, unspecified site M1A.00X0 Gout site: unspecified site Gout etiology: idiopathic Chronicity: chronic Presence of tophus: without tophus Polyarthralgia M25.50 Time Spent (min) 22 Assessment & Plan Assessment & Plan (1) Cirrhosis: Code(s): K74.60 - Unspecified cirrhosis of liver Category: Medical (2) HTN (hypertension): Code(s): I10 - Essential (primary) hypertension Category: Medical Qualifiers: Hypertension type: primary hypertension Qualified Code(s): I10 - Essential (primary) hypertension (3) GERD (gastroesophageal reflux disease): Code(s): K21.9 - Gastro-esophageal reflux disease without esophagitis Category: Medical Qualifiers: Esophagitis presence: esophagitis presence not specified Qualified Code(s): K21.9 - Gastro-esophageal reflux disease without esophagitis (4) Anemia: Code(s): D64.9 - Anemia, unspecified Category: Medical (5) Gout: Code(s): M10.9 - Gout, unspecified Category: Medical Qualifiers: Gout site: unspecified site Gout etiology: idiopathic Chronicity: chronic Presence of tophus: without tophus Qualified Code(s): M1A.00X0 - Idiopathic chronic gout, unspecified site, without tophus (tophi) (6) Polyarthralgia: Code(s): M25.50 - Pain in unspecified joint Category: Medical Plan The management plan includes continued monitoring of liver function by the wire preparation machine tender, with regular follow-up appointments to assess the progression of cirrhosis. Pain management will be addressed through referral to a ship painter helper to explore alternatives to ibuprofen, given its potential impact on renal function. The patient will be referred to rheumatology for further evaluation and management of musculoskeletal pain, with potential interventions including injections and laboratory assessments. Anemia will be monitored, with attention to hemoglobin levels and any signs of bleeding. Patient was informed and verbally consented to the use of an ambient scribe for clinic note documentation during this visit. I discussed with the patient the importance of regular follow-up with the wire preparation machine tender to monitor liver function and manage cirrhosis. We also talked about the potential risks of long-term ibuprofen use on renal function and the need for pain management consultation. The patient was informed about the referral to rheumatology for further evaluation of musculoskeletal pain and the possibility of receiving injections as part of the treatment plan. Orders: Orders Uric Acid 4 Months M10.9 - Gout, unspecified Lipid Panel 4 Months E78.5 - Hyperlipidemia, unspecified IRON PROFILE 4 Months D64.9 - Anemia, unspecified Complete Blood Count Auto Diff 4 Months D64.9 - Anemia, unspecified Vitamin D 25-OH Total 4 Months E55.9 - Vitamin D deficiency, unspecified Comprehensive [place]. Panel Fast 4 Months K76.9 - Liver disease, unspecified Referrals Rheumatology Referral M25.50 - Pain in unspecified joint Patient Instructions: - Continue taking all prescribed medications as directed. - Follow up with the wire preparation machine tender for liver function monitoring. - Attend the scheduled pain management and rheumatology appointments. - Report any new or worsening symptoms to the healthcare provider immediately.
[2025-02-20 09:22] VITALS: BP 130/70; BMI 36.6
--- OUTSIDE RECORDS SUMMARY | 2025-02-20 09:48 | XMS_ITS | Patient Health Record ---
Author Organization [facility] Address [address] [place] [address] Care Team Providers Care Lead Janitor Name Role Phone Ivon Earl Primary Care Provider UnavailEzio Toure Unavailable [phone] Allergies No Known Allergies Results Component Value Reference Range Notes Complete Blood Count Auto Di ff Reviewed date:08/15/2024 12:45:23 PM Interpretation: Performing Lab:[facility], [address] [place] [id number] Notes/Report: White Blood Count 5.0 4.8-10.8 X10*3/uL [...] INR Reviewed date:08/15/2024 12:45:30 PM Interpretation: Performing Lab:[address] [address] Notes/Report: Prothrombin Time 11.8 10.9-12.4 SEC INTERNATIONAL [...] Panel Reviewed date:08/15/2024 12:45:38 PM Interpretation: Performing Lab:[address] [address] Notes/Report: Bilirubin Total 0.9 0.0-1.0 mg/dL Bilirubin Direct 0.3 0.0-0.5 mg/dL Aspartate Amino Transferase 50 5-37 U/L Alanine Aminotransferase 46 0-40 U/L Total Protein 7.4 6.5-8.0 g/dL Albumin Level 3.8 3.5-5.0 g/dL Alkaline Phosphatase 79 39-117 U/L Alpha Fetoprotein Reviewed date:08/17/2024 06:31:29 PM Interpretation: Performing Lab:[address] [address] Notes/Report: Alpha Fetoprotein 2.0 <6.1 ng/mL This test was performed using the Andrew Becca chemiluminescent method. Values obtained from different assay methods cannot be used interchangeably. AFP levels, regardless of value, should not be interpreted as absolute evidence of the presence or absence of disease. THIS TEST WAS PERFORMED AT: [facility] [address] [place] [phone] ALEX CHEUNG MD US abdomen complete (Not yet reviewed by provider) Interpretation: Performing Lab: Notes/Report: [address] [address] Ultrasound Report Signed Patient: Daniel Dietz MR#: [id number] : 1950 Acct:[id number] Age/Sex: 73 / M ADM Date: 08/15/24 Loc: HO.US Attending Dr: Ezio Garcia MD Ordering Physician: Ezio Garcia MD Date of Service: 08/15/24 Procedure(s): US abdomen complete Accession Number(s): [id number] cc: Ivon Earl MD; Ezio Garcia MD [...] in OV> 08/16/24914 DD/ 3 TD/TT: 08/16/24913 Industrial Maintenance Mechanic: Reason For Referral No Information Medications Medication [...] Problem Status W/U Status Risk Notes Problem 599145907 Encounter for screening for malignant neoplasm of colon (Z12.11) Active confirmed Problem 287690924 Alcoholic cirrhosis of liver without ascites (K70.30) Active confirmed Problem 551616684 Celiac disease (K90.0) Active confirmed Problem History of gastrointestinal tract bypass (003873234) Intestinal bypass and anastomosis status (Z98.0) Active confirmed Problem 175904053 History of colon cancer (Z85.038) Active confirmed Problem Diverticulosis of colon (664974007) Diverticulosis of colon (K57.30) Active confirmed Vital Signs Temperature 98.6 degrees Fahrenheit 07/24/2024 Blood pressure diastolic 00 mm Hg 07/24/2024 Height 64 in 07/24/2024 Blood pressure systolic 000 mm Hg 07/24/2024 Weight 210 lbs 07/24/2024 BMI 36.04 kg/m2 07/24/2024 Encounters Encounter Location Date Provider Diagnosis [facility] [address] [place] [address] 07/24/2024 Ezio Garcia History of colon cancer [...] US abdomen complete 08/16/2024 US abdomen complete 07/19/2023 US abdomen complete 07/24/2024 Future Test Test Name Order Date COLONOSCOPY 10/29/2021 Next Appt Details Provider Name:Ezio Garcia , 07/23/2025 09:10:00 AM, [address], [address], [place], [address], Insurance Providers Payer Name Payer Address Payer Phone Subscriber Number Group Number Insured Name Patient Relationship to Insured Coverage Start Date Coverage End Date [facility] [address] Attn Claims ROSA Strange [id number] DORADO LILLY DANIEL Self - patient is the insured Medical [...] describes a gastrojejunostomy and some gastritis Denies VT,DM,CVA,Lung disease,renal dise ase Peptic ulcer disease with GI bleeding an d surgery as described below Negative screening colonoscopy in 12/2021 Reports a history of celiac disease but not on a gluten-free diet--negative laboratories for celiac disease in June of 2023 Gallstones, but asymptomatic --- reviewed with patient and his son at the 07/24/2024 OV Surgical History Surgery Date(Month/Year) Colon cancer with surgery in [place] 2011 Ulcer surgery 30 yrs ago--reports remova l of part of the stomach
--- OUTSIDE RECORDS SUMMARY | 2025-02-20 09:48 | XMS_ITS | Clinical Summary ---
Author Organization [employer] Address [address] [place] [address] [address] [place] [address] Care Team Providers Care Concrete Bucket Hooker Name Role Phone Unavailable Primary Care Provider [...] 1960 Zoster Vaccines (1 of 2) 1998 Pneumococcal Vaccine: 50+ Years (2 of 2 - PPSV23) 07/24/2020 07/24/2019 RSV Patients and Patients Aged 60 years or older (1 - 1-dose 75+ series) 2023 COVID-19 Vaccine (3 - 2023-2 5 season) 2024 05/26/2021, 10/08/2020 Influenza Vaccine (#1) 2025 , 04/13/2020, 05/08/2019 Lipid Panel 07/30/2025 07/30/2020 DTaP/Tdap/Td Vaccines (2 - T d or Tdap) 07/22/2031 07/22/2021, 07/24/2019 HIB Vaccines Aged Out No longer eligi [...] patient's age to complete this topic Meningococcal B Vaccine Aged Out No l onger eligible based on patient's age to complete [...] [facility] Comment: Reference range: <100 Desirable range <100 mg/dL for primary prevention; <70 mg/dL for patients with CHD or diabetic patients with > or = 2 CHD risk factors. LDL-C is now calculated using the Jalen calculation, which is a validated novel method providing better accuracy than the Friedewald equation in the estimation of LDL-C. Chaparro AZEVEDO et al. DREW. 2013;310(19): 9946-8626 (http://education.SIZESEEKER.[employer]/faq/WIN129) Non-HDL Cholesterol 113 <130 mg/dL (calc) [facility] Comment: For patients with diabetes plus 1 major ASCVD risk factor, treating to a non-HDL-C goal of <100 mg/dL (LDL-C of <70 mg/dL) is considered a therapeutic option. Triglycerides 53 <150 mg/dL [facility] 07/30/2020 9:36 AM EST us Atif Smith MD LAB BLOOD ORDERABLES Final Result [facility] [address] from Last 3 Months or Most Recently Relevant to Health Maintenance
== END 2025-02-20 09:43 | disposition home or self-care (01) ==
LOC: HO.HMCH 09:18
PROVIDERS: PCP Internal Medicine; Visit Provider Internal Medicine
DX: K74.60 Unspecified cirrhosis of liver (principal); I10 Essential (primary) hypertension; K21.9 Gastro-esophageal reflux disease without esophagitis; D64.9 Anemia, unspecified; M1A.00X0 Idiopathic chronic gout, unspecified site, without tophus (tophi); M25.50 Pain in unspecified joint

== ENCOUNTER → 2025-02-20 09:17 | Outpatient (BNVA) | payer OTHER, SELFPAY | PROVIDERS: PCP Internal Medicine; Visit Provider Internal Medicine | DX: I10 Essential (primary) hypertension (principal); K74.60 Unspecified cirrhosis of liver; D64.9 Anemia, unspecified; J30.9 Allergic rhinitis, unspecified; N52.9 Male erectile dysfunction, unspecified; K21.9 Gastro-esophageal reflux disease without esophagitis; M1A.00X0 Idiopathic chronic gout, unspecified site, without tophus (tophi); M25.50 Pain in unspecified joint | CPT/HCPCS: 99212 ==

== ENCOUNTER 2025-05-29 09:08 | Outpatient (REF) | payer OTHER, SELFPAY ==
[2025-05-29 09:22] LABS: MANUAL DIFF FLAG NO
[2025-05-29 09:51] LABS: Hematocrit 40.2 % (42.0-52.0); Hemoglobin 13.1 g/dl (14.0-18.0); Imm Gran Abs Auto 0.00 X10*3/uL (0.00-0.03); Imm Gran Pct Auto 0.0 % (0.0-0.4); Lymphocytes Absolute Auto 1.5 X10*3/uL (1.2-4.9); Mean Corpuscular HGB Conc 32.6 g/dl (31.0-36.0); Mean Corpuscular Hemoglobin 29.2 pg (27.0-33.0); Mean Corpuscular Volume 89.5 fL (80.0-98.0); NRBC Abs Auto 0.000 X10*3/uL (0.0-0.012); NRBC Pct Auto 0.0 /100WBC (0.0-0.2); Platelet Count 188 X10*3/uL (160-400); Red Blood Count 4.49 X10*6/uL (4.60-5.80); White Blood Count 4.9 X10*3/uL (4.8-10.8)
--- OUTSIDE RECORDS SUMMARY | 2025-05-29 09:51 | XMS_ITS | Patient Health Record ---
Author Organization [facility] Address [address] [place] [address] Care Team Providers Care Marketing Compliance Manager Name Role Phone Ivon Earl Primary Care Provider UnavailEzio Toure Unavailable [phone] Allergies No Known Allergies Results Component Value Reference Range Notes Complete Blood Count Auto Di ff Reviewed date:08/15/2024 12:45:23 PM Interpretation: Performing Lab:[facility], [address] [place] [phone] Notes/Report: White Blood Count 5.0 4.8-10.8 X10*3/uL [...] INR Reviewed date:08/15/2024 12:45:30 PM Interpretation: Performing Lab:[address] [address] Notes/Report: Prothrombin Time 11.8 10.9-12.4 SEC INTERNATIONAL [...] Panel Reviewed date:08/15/2024 12:45:38 PM Interpretation: Performing Lab:[address] [address] Notes/Report: Bilirubin Total 0.9 0.0-1.0 mg/dL Bilirubin Direct 0.3 0.0-0.5 mg/dL Aspartate Amino Transferase 50 5-37 U/L Alanine Aminotransferase 46 0-40 U/L Total Protein 7.4 6.5-8.0 g/dL Albumin Level 3.8 3.5-5.0 g/dL Alkaline Phosphatase 79 39-117 U/L Alpha Fetoprotein Reviewed date:08/17/2024 06:31:29 PM Interpretation: Performing Lab:[address] [address] Notes/Report: Alpha Fetoprotein 2.0 <6.1 ng/mL This test was performed using the Andrew Becca chemiluminescent method. Values obtained from different assay methods cannot be used interchangeably. AFP levels, regardless of value, should not be interpreted as absolute evidence of the presence or absence of disease. THIS TEST WAS PERFORMED AT: [facility] [address] [place] [phone] ALEX CHEUNG MD US abdomen complete (Not yet reviewed by provider) Interpretation: Performing Lab: Notes/Report: [address] [address] Ultrasound Report Signed Patient: Daniel Dietz MR#: [id number] : 1950 Acct:[id number] Age/Sex: 73 / M ADM Date: 08/15/24 Loc: HO.US Attending Dr: Ezio Garcia MD Ordering Physician: Ezio Garcia MD Date of Service: 08/15/24 Procedure(s): US abdomen complete Accession Number(s): [id number] cc: Ivon Earl MD; Ezio Garcia MD [...] in OV> 08/16/24914 DD/ 3 TD/TT: 08/16/24913 Risk Management Analyst: Reason For Referral No Information Medications Medication SIG (Take, Route, Frequency, Duration) Notes Start Date End Date Status Losartan Potassium-HCTZ 100-25 MG 1 tablet Orally Once a day; Duration: 30 day(s) Active Folic Acid 1 MG 1 tablet Orally Once a day; Duration: 30 day(s) Active Dupixent 300 MG/2ML Subcutaneous; Duration: 28 Active Fluocinonide 0.05 % APPLY THIN LAYER TO AFFECTED AREAS ON THE BACK TOPICALLY TWICE PER DAY FOR ONE WEEK BREAK FOR ONE WEEK REPEAT NEEDED External; Duration: 30 L2089,Unavailab le Active Ibuprofen 600 MG Oral; Duration: Active Fish Oil 1000 MG 1 capsule Orally Once a day; Duration: 30 day(s) Active Omeprazole 40 MG 1 capsule 30 minutes before morning meal Orally Once a day; Duration: 30 day(s) Active Allopurinol 100 MG 1 tablet Orally Once a day; Duration: 30 day(s) Active Immunizations Vaccine Route Administration [...] Problem Status W/U Status Risk Notes Problem Screening for malignant neoplasm of colon (069227274) Encounter for screening for malignant neoplasm of colon (Z12.11) Active confirmed Problem Alcoholic cirrhosis (025023241) Alcoholic cirrhosis of liver without ascites (K70.30) Active confirmed Problem Celiac disease (313304044) Celiac disease (K90.0) Active confirmed Problem History of gastrointestinal tract bypass (279413681) Intestinal bypass and anastomosis status (Z98.0) Active confirmed Problem History of malignant neoplasm of colon (067280082) History of colon cancer (Z85.038) Active confirmed Problem Diverticulosis of colon (700390567) Diverticulosis of colon (K57.30) Active confirmed Vital Signs Temperature 98.6 degrees Fahrenheit 07/24/2024 Blood pressure diastolic 00 mm Hg 07/24/2024 Height 64 in 07/24/2024 Blood pressure systolic 000 mm Hg 07/24/2024 Weight 210 lbs 07/24/2024 BMI 36.04 kg/m2 07/24/2024 Encounters Encounter Location Date Provider Diagnosis [facility] [address] [place] [address] 07/24/2024 Ezio Garcia History of colon cancer [...] Name:Ezio Garcia , 07/23/2025 09:10:00 AM, [address], [address], [place], [address], Insurance Providers Payer Name Payer Address Payer Phone Subscriber Number Group Number Insured Name Patient Relationship to Insured Coverage Start Date Coverage End Date [facility] [address] Attn Claims ROSA Strange [id number] DANIEL DIETZ Self - patient is the [...] describes a gastrojejunostomy and some gastritis Denies [place],DM,CVA,Lung disease,renal dise ase Peptic ulcer disease with [...] Colon cancer with surgery in [place] 2012 Ulcer surgery 30 yrs ago--reports remova l of part of the stomach
--- OUTSIDE RECORDS SUMMARY | 2025-05-29 09:51 | XMS_ITS | Clinical Summary ---
Author Organization [employer] Address [address] [place] [address] [address] [place] [address] Care Team Providers Care Computer Forwarding System Markup Clerk Name Role Phone Unavailable Primary Care Provider [...] 75+ series) 2023 COVID-19 Vaccine (3 - 2024-2 6 season) 2025 05/26/2021, 10/08/2020 Influenza Vaccine (#1) 2025 , [...] LDL-C. Chaparro AZEVEDO et al. DREW. 2013;310(19): 6911-2026 (http://education.Hortau.[employer]faq/PBV006) Non-HDL Cholesterol 113 <130 mg/dL (calc) [facility] Comment: For patients with diabetes plus 1 major ASCVD risk factor, treating to a non-HDL-C goal of <100 mg/dL (LDL-C of <70 mg/dL) is considered a therapeutic option. Triglycerides 53 <150 mg/dL [facility] 07/30/2020 9:36 AM EST us Atif Smith MD LAB BLOOD ORDERABLES Final Result [facility] [address] from Last 3 Months or Most Recently Relevant to Health Maintenance
[2025-05-29 10:27] LABS: Alanine Aminotransferase 37 U/L (0-40); Albumin Level 4.0 g/dL (3.5-5.0); Alkaline Phosphatase 79 U/L (39-117); Anion Gap 7 (12-20); Aspartate Amino Transferase 45 U/L (5-37); Blood Urea Nitrogen 22 mg/dL (9-16); Calcium 9.3 mg/dL (8.4-10.2); Carbon Dioxide 32 mmol/L (22-29); Chloride 107 mmol/L (96-108); Cholesterol 165 mg/dL (<200); Estimated Glomerular Filt Rate > 60; HDL Cholesterol 42 mg/dL (>40); Iron 93 mcg/dL (45-160); Percent Iron Saturation 31 % (15-50); Potassium 4.6 mmol/L (3.3-5.1); Sodium 141 mmol/L (135-145); Total Iron Binding Capacity 301 mcg/dL (228-428); Total Protein 7.6 g/dL (6.5-8.0); Triglycerides 72 mg/dL (<150); Unsaturated Iron Binding 208 ug/dL; Uric Acid 3.5 mg/dL (3.4-7.0)
== END 2025-05-29 09:09 | disposition home or self-care (01) ==
LOC: HO.LAB 09:08
PROVIDERS: PCP Internal Medicine; Visit Provider Internal Medicine
DX: M10.9 Gout, unspecified (principal); E78.5 Hyperlipidemia, unspecified; D64.9 Anemia, unspecified; E55.9 Vitamin D deficiency, unspecified; K76.9 Liver disease, unspecified
CPT/HCPCS: 36415; 80053; 80061; 82306; 83540; 84550; 85025

== ENCOUNTER 2025-06-26 09:18 | Outpatient (AMB) | payer OTHER, SELFPAY ==
[2025-06-26 09:29] VITALS: BP 140/70; PULSE 63; TEMP 36.1; O2SAT 98; BMI 36.9
--- NOTE | 2025-06-26 09:29 | A.OFFPC_ITS ---
Vital Signs 06/26/25 09:29 Height 5 ft 4 in Weight 215 lb 2.738 oz BMI 36.9 BP 140/70 H Blood Pressure Location Lt brachial Position Sitting Pulse 63 Pulse Source Pulse Oximeter Temp 96.9 F Temp Source Temporal Artery Scan Pulse Oximetry (%) 98 Oxygen Delivery Method Room Air Intake Visit Reasons: cirrhosis Research Environmental Engineer Required: No Research Environmental Engineer Name: Dr. El gutiérrez Accompanied by: Self / Same As Patient Allergies No Known Allergies Allergy (Verified 06/26/25 09:42) Medication List - Last Reconciled 06/26/25 by Ivon Murphy MD allopurinol 100 mg PO DAILY 90 days blood pressure monitor As directed cetirizine 10 mg (10 mL) PO DAILY colchicine 0.6 mg PO BID PRN 5 days [digital blood pressure meter As directed] diphenhydramine-zinc acetate 2-0.1 % (Benadryl Extra Strength) 1 appl topical BID PRN 30 days [disposeable gloves As directed] dupilumab (Dupixent) mg subcut folic acid 1 mg PO DAILY hydrocortisone 2.5% 1 appl topical QD-TID PRN hydrocortisone 1% (Anti-Itch (hydrocortisone)) 1 appl topical TID PRN 30 days ibuprofen 800 mg PO Q8H PRN 90 days levocetirizine 5 mg PO DAILY lidocaine 5% 1 patch topical DAILY PRN 30 days loratadine (Claritin) 10 mg PO DAILY PRN 90 days losartan 100 mg PO DAILY omega-3 fatty acids 1,000 mg PO DAILY omeprazole 40 mg PO DAILY pramoxine-calamine 1-8 % (Caladryl) 1 appl topical TID PRN 30 days Shower Chair As directed sildenafil 50 mg PO DAILY PRN 3 days triamcinolone acetonide 0.1% 1 appl topical BID 10 days [washable bed pads 6per day As directed] Tobacco use date assessed: 06/26/25 Fall risk assessment: No Falls in past year Last assessed Fall Risk: 06/26/25 Dental Screening Dental Screen Date: 06/26/25 Did you have a dental visit in the last 12 months?: No Did you have a dental problem in the last 6 months where you did not have access to dental care?: No Was dental information given to patient?: Patient has dentist HPI HPI Comments History of Present Illness Details The patient is a 74 year old individual presenting for follow-up on chronic conditions, management of allergies, and vaccinations. The patient's medication list includes allopurinol, colchicine, Zyrtec, Dupixent, ibuprofen, loratadine, losartan for hypertension, omega-3, and omeprazole. Recent laboratory results showed stable hemoglobin at 13.1 g/dL, indicating mild anemia, normal blood sugar, and normal renal function. Liver enzymes have improved, cholesterol is controlled at 165 mg/dL, and vitamin D levels are noted to be very high. The patient mentions taking vitamin B12. For gout, the patient takes allopurinol and colchicine and denies any recent attacks. The patient has a history of a gallstone but reports no associated abdominal pain. Blood pressure borderline today and he will be recheck in 3 weeks with nurse navigator. Blood pressure goal is equal or less than 130/80. GERD stable with omeprazole. Past social history is significant for prior smoking and alcohol use, both of which the patient has discontinued. [facility] Medical History Cirrhosis History of colon cancer PUD (peptic ulcer disease) Arthritis GERD (gastroesophageal reflux disease) Gout HTN (hypertension) Surgical History Hx of colonoscopy History of colon surgery History of tooth extraction History of gastric ulcer Family History Mother No problems noted. Father Prostate cancer Family/Other Mental health disorder Substance use disorder Brother Colon adenocarcinoma Sister Colon adenocarcinoma Lymphoma Social History Household Members: Family Housing: House Alcohol intake: former Patient Tobacco Use Status: Former Tobacco user Tobacco use type: Cigarette e-Cigarette/Vaping Use: Never Used Second Hand Smoke Exposure: No service: No Current occupational status: retired Cognitive needs: Yes Hearing needs: No Vision needs: Yes Questionnaire PHQ-9 Over the last 2 weeks, how often have you been bothered by any of the following problems? 1. Little interest or pleasure in doing things: not at all 2. Feeling down, depressed, or hopeless: not at all 3. Trouble falling or staying asleep, or sleeping too much: not at all 4. Feeling tired or having little energy: not at all 5. Poor appetite or overeating: not at all 6. Feeling bad about yourself - or that you are a failure or have let yourself or your family down: not at all 7. Trouble concentrating on things, such as reading the newspaper or watching television: not at all 8. Moving or speaking so slowly that other people could have noticed. Or the opposite - being so fidgety or restless that you have been moving around a lot more than usual: not at all 9. Thoughts that you would be better off or of hurting yourself in some way: not at all Total score: 0 Depression Screening Interpretation: Negative Depression Screening Done: Yes 52737 - PHQ-9 Billing: Yes Source: Developed by Drs. Ezio Kim, Arlene Miranda, Brayden Deleon and colleagues, with an educational shakila from [employer]. Thrive Questionnaire Date Thrive assessed: 06/26/25 I am a: Patient What is your living situation today?: I have a steady place to live Within the past 12 months, did the food you bought not last and you didn't have the money to get more?: Never true Within the past 12 months, did you worry whether your food would run out before you got money to buy more?: Never true Do you have trouble paying for medicines?: No Do you have trouble getting transportation to medical appointments?: No Do you have trouble paying your heating and electricity bill?: No Do you have trouble taking care of your child, family member or friend?: No Do you have trouble with day-to-day activities such as bathing, preparing meals, shopping, managing finances, etc.?: No Are you currently unemployed and looking for a job?: No Are you interested in more education?: No Please select the resources that you would like help with: None Currently or been in a relationship where the following occur: No concerns reported THRIVE Score: 0 AUDIT C Alcohol Use Questionnaire (AUDIT-C) 1. How often do you have a drink containing alcohol?: Never Total Score: 0 Score Reviewed/Action Taken: No LISA-7 AMB Questionnaire LISA-7 Date LISA - 7 assessed: 06/26/25 Feeling nervous, anxious, or on edge: 0 = Not at all Not being able to stop or control worryin = Not at all Worrying too much about different things: 0 = Not at all Trouble relaxin = Not at all Being so restless that it is hard to sit still: 0 = Not at all Becoming easily annoyed or irritable: 0 = Not at all Feeling afraid as if something awful might happen: 0 = Not at all Total LISA-7 score (0-4 normal; 5-9 mild; 10-14 moderate; 15-21 severe): 0 Source: Developed by Drs. Ezio Kim, Arlene Miranda, Brayden Deleon and colleagues, with an educational shakila from [employer]. LISA-7 Assessment Billing LISA-7 Assessment Tool: LISA-7 Assessment 62490 Review of Systems Const All systems reviewed & are unremarkable except as noted in HPI and below Card Denies chest pain at rest, Denies chest pain with activity, Denies edema, Denies irregular heart rhythm, Denies claudication, Denies dyspnea, Denies dyspnea on exertion, Denies orthopnea, Denies paroxysmal nocturnal dyspnea and Denies slow heart rate Resp Denies cough, Denies dyspnea and Denies dyspnea on exertion Physical exam (Primary Care) Vital Signs: Last Vital Signs Temp 96.9 F 06/26/25 09:29 Pulse 63 06/26/25 09:29 BP 140/70 H 06/26/25 09:29 Pulse Ox 98 06/26/25 09:29 Oxygen Delivery Method Room Air 06/26/25 09:29 BMI result Body Mass Index 36.9 BMI Assessment/Plan discussion: High BMI High, discussed plan: lifestyle, weight reduction, dietary and physical activity Tobacco/Smoking Status: Tobacco use Status Tobacco use date assessed 06/26/25 06/26/25 09:30 Patient Tobacco Use Status Former Tobacco user 06/26/25 09:30 Tobacco use type Cigarette 06/26/25 09:30 e-Cigarette/Vaping Use Never Used 06/26/25 09:30 PHQ-9: PHQ-9 Score PHQ-9: Total score 0 06/26/25 10:25 Depression Screening Interpretation: Negative Thrive Assessment: Date of Thrive Assessment Date Thrive assessed 06/26/25 06/26/25 09:30 Currently or been in a relationship where the following occur: No concerns reported Resp Effort & Inspection: normal respiratory effort Auscultation: clear to auscultation bilaterally Cardio Jugular venous distension: no JVD Rate: regular rate Rhythm: regular rhythm Heart sounds: S1 normal heart sound present and S2 normal heart sound present Extrem General: Yes full ROM Office Procedures Flu Questionnaire Does the patient have a severe egg allergy?: No Does the patient have severe life threatening allergies?: No Does the patient have a fever or illness today?: No Has the patient ever had Guillain-[place] Syndrome?: No Has the patient ever had any past reaction to a flu shot?: No Immunizations Fluarix (PF) 45 mcg (15 mcg x 3)/0.5 mL IM syringe Performing Provider: Ivon Murphy MD Performing Location: [facility] [place] [facility] Administered by: Mery Ring CMA on 06/26/25 10:25 Dose Route Admin Location Dispensed Lot Number Expiration Date NDC Grocery Manager 0.5 mL IM Left Deltoid 0.5 mL [id number] 01/21/26 80528-445-24 [employer] VIS Given Date VIS Provided VIS Publication Date 06/26/25 Single Vaccine 24 Eligibility Eligibility Date Funding Source Not VFC Eligible 06/26/25 Private pneumoc 20-nish conj-dip cr(PF) 0.5 mL IM syringe Performing Provider: Ivon Murphy MD Performing Location: [facility] [place] [facility] Administered by: Mery Ring CMA on 06/26/25 10:26 Dose Route Admin Location Dispensed Lot Number Expiration Date ND Grocery Manager 0.5 mL IM Left Deltoid 0.5 mL [id number] 04/23/26 [id number] [employer] Total Dispensed Waste 0.5 mL 0 % VIS Given Date VIS Provided VIS Publication Date 06/26/25 Single Vaccine 24 Eligibility Eligibility Date Funding Source Not VFC Eligible 06/26/25 Private Coding Level of Care Code Complex visit Add On G2211 Diagnoses Primary hypertension I10 Hypertension type: primary hypertension Gastroesophageal reflux disease, unspecified whether esophagitis present K21.9 Esophagitis presence: esophagitis presence not specified Anemia D64.9 Idiopathic chronic gout without tophus, unspecified site M1A.00X0 Gout site: unspecified site Gout etiology: idiopathic Chronicity: chronic Presence of tophus: without tophus Cholelithiasis K80.20 Additional Codes LISA-7 Assessment Billing - LISA-7 Assessment Tool: LISA-7 Assessment 34172 ([id number]) PHQ-9 - 01556 - PHQ-9 Billing: Yes ([id number]) Time Spent (min) 21 Assessment & Plan Assessment & Plan (1) HTN (hypertension): Code(s): I10 - Essential (primary) hypertension Category: Medical Qualifiers: Hypertension type: primary hypertension Qualified Code(s): I10 - Essential (primary) hypertension (2) GERD (gastroesophageal reflux disease): Code(s): K21.9 - Gastro-esophageal reflux disease without esophagitis Category: Medical Qualifiers: Esophagitis presence: esophagitis presence not specified Qualified Code(s): K21.9 - Gastro-esophageal reflux disease without esophagitis (3) Anemia: Code(s): D64.9 - Anemia, unspecified Category: Medical (4) Gout: Code(s): M10.9 - Gout, unspecified Category: Medical Qualifiers: Gout site: unspecified site Gout etiology: idiopathic Chronicity: chronic Presence of tophus: without tophus Qualified Code(s): M1A.00X0 - Idiopathic chronic gout, unspecified site, without tophus (tophi) (5) Cholelithiasis: Code(s): K80.20 - Calculus of gallbladder without cholecystitis without obstruction Category: Medical Plan Plan 1. Hypertension The patient's blood pressure was 140/70 mmHg, which is considered borderline. A follow-up appointment in three weeks was scheduled for a blood pressure recheck. 2. Health Maintenance The patient had not yet received the influenza vaccine for the year and was eligible for the pneumonia vaccine. It was confirmed that there are no contraind ications to receiving these vaccines on the same day as the patient's allergy shot. The plan is to administer both the influenza and pneumonia vaccines during today's visit. 3. Cholelithiasis The patient has a known history of a gallstone. As the patient is asymptomatic and denies abdominal pain, no surgical intervention is required at this time. 4. Anemia Recent labs revealed mild anemia with a hemoglobin of 13.1 g/dL, which is considered stable. No acute change in management was discussed. 5. GERD Continue PPIs 6. Gout Continue allopurinol. Orders: Orders Vitamin B12 and Folate 3 Months E53.8 - Deficiency of other specified B group vitamins Comprehensive Raymond. Panel Fast 3 Months I10 - Essential (primary) hypertension Influenza [id number] Immunization Today Z23 - Encounter for immunization Complete Blood Count Auto Diff 3 Months D64.9 - Anemia, unspecified IRON PROFILE 3 Months D64.9 - Anemia, unspecified Vitamin D 25-OH Total 3 Months E55.9 - Vitamin D deficiency, unspecified Lipid Panel 3 Months E78.5 - Hyperlipidemia, unspecified Uric Acid 3 Months M10.9 - Gout, unspecified Pneumococcal 20 Immunization Today Z23 - Encounter for immunization
--- OUTSIDE RECORDS SUMMARY | 2025-06-26 10:04 | XMS_ITS | Clinical Summary ---
Author Organization [employer] Address [address] [place] [address] [address] [place] [address] Care Team Providers Care Biomed Tech Name Role Phone Unavailable Primary Care Provider [...] Vaccine: 50+ Years (2 of 2 - PCV20 or PCV21) 07/24/2020 07/24/2019 RSV Patients and Patients Aged [...] LDL-C. Chaparro AZEVEDO et al. DREW. 2013;310(19): 1376-1087 (http://education.inploid.com.[employer]/faq/ELY808) Non-HDL Cholesterol 113 <130 mg/dL (calc) [facility] Comment: For patients with diabetes plus 1 major ASCVD risk factor, treating to a non-HDL-C goal of <100 mg/dL (LDL-C of <70 mg/dL) is considered a therapeutic option. Triglycerides 53 <150 mg/dL [facility] 07/30/2020 9:36 AM EST us Atif Smith MD LAB BLOOD ORDERABLES Final Result [facility] [address] [place] [address], from Last 3 Months or Most Recently Relevant to Health Maintenance
== END 2025-06-26 10:10 | disposition home or self-care (01) ==
LOC: HO.HMCH 09:19
PROVIDERS: PCP Internal Medicine; Visit Provider Internal Medicine
DX: I10 Essential (primary) hypertension (principal); K21.9 Gastro-esophageal reflux disease without esophagitis; D64.9 Anemia, unspecified; M1A.00X0 Idiopathic chronic gout, unspecified site, without tophus (tophi); K80.20 Calculus of gallbladder without cholecystitis without obstruction; Z23 Encounter for immunization

== ENCOUNTER → 2025-06-26 09:18 | Outpatient (BNVA) | payer OTHER, SELFPAY | PROVIDERS: PCP Internal Medicine; Visit Provider Internal Medicine | DX: Z23 Encounter for immunization (principal); I10 Essential (primary) hypertension; K21.9 Gastro-esophageal reflux disease without esophagitis; D64.9 Anemia, unspecified; K80.20 Calculus of gallbladder without cholecystitis without obstruction; M1A.00X0 Idiopathic chronic gout, unspecified site, without tophus (tophi) | CPT/HCPCS: 90471; 90472; 90656; 90677; 96127; 99212 ==

== ENCOUNTER 2025-07-17 09:15 | Outpatient (AMB) | payer OTHER, SELFPAY ==
[2025-07-17 09:21] VITALS: BP 124/62; PULSE 70; O2SAT 95; BMI 36.7
--- NOTE | 2025-07-17 09:21 | A.OFFVIS_ITS ---
Vital Signs 07/17/25 09:21 Height 5 ft 4 in Weight 214 lb BMI 36.7 BP 124/62 Blood Pressure Location Lt brachial Position Sitting Pulse 70 Pulse Source Pulse Oximeter Pulse Oximetry (%) 95 Oxygen Delivery Method Room Air Intake Visit Reasons: joint pain/ New Patient Intake Note: Patient is a new patient, internally referred by PCP Dr. Johnson for polyarthralgia. Shipyard Painter Apprentice Required: No Shipyard Painter Apprentice Services: Shipyard Painter Apprentice Offered & Declined Shipyard Painter Apprentice Name: Eder son Accompanied by: Son Allergies No Known Allergies Allergy (Verified 07/17/25 09:26) HPI Comments Details: 74-year-old male with a history of gout, well controlled on allopurinol, cirrhosis, allergic rhinitis presents to me for evaluation of pain. He reports that this pain is more so in the muscles, in his arms and his legs. He denies any specific joint pain. This muscle pain has been getting worse for the past 1 year. For the muscle pain, he takes Motrin 2 pills a day 800 mg daily which he says helps with his pain. He denies any morning stiffness. He is otherwise very active and does exercises and walks his dog. He does not take any statin or colchicine. In terms of his sleep he sleeps 7-8 hours a day. He does not have any muscle weakness and is otherwise quite strong. Last uric acid 3.5 He denies photosensitivity, skin rashes, oral ulcers, blood clots, Raynaud's. He has some dry eyes, no dry mouth. No bloody diarrhea no bloody urine PHYSICAL EXAM General: Comfortable CVS: RRR Respiratory: clear to auscultation bilaterally. Good respiratory effort Skin: No lesions seen MSK: Patient is able to make a fist bilaterally. Patient does not have any tenderness in the MCPs PIPs, no active synovitis noted. Patient has full range of motion in the shoulders, strength 5/5. Patient has good range of motion in the hips. Crepitus noted in both knees bilaterally. [facility] Medical History Cirrhosis History of colon cancer PUD (peptic ulcer disease) Arthritis GERD (gastroesophageal reflux disease) Gout HTN (hypertension) Surgical History Hx of colonoscopy History of colon surgery History of tooth extraction History of gastric ulcer Family History Mother No problems noted. Father Prostate cancer Family/Other Mental health disorder Substance use disorder Brother Colon adenocarcinoma Sister Colon adenocarcinoma Lymphoma Social History (Updated 07/17/25 @ 09:28 by Tali Ferrell CMA) Household Members: Family Housing: House Alcohol intake: former Patient Tobacco Use Status: Former Tobacco user Tobacco use type: Cigarette e-Cigarette/Vaping Use: Never Used Second Hand Smoke Exposure: No service: No Current occupational status: retired Cognitive needs: Yes Hearing needs: No Vision needs: Yes Physical Exam Vital Signs: Last Vital Signs Pulse 70 07/17/25 09:21 BP 124/62 07/17/25 09:21 Pulse Ox 95 07/17/25 09:21 Oxygen Delivery Method Room Air 07/17/25 09:21 BMI result Body Mass Index 36.7 Assessment & Plan Assessment & Plan (1) Muscle pain: Code(s): M79.10 - Myalgia, unspecified site Category: Medical (2) Gout: Code(s): M10.9 - Gout, unspecified Category: Medical Qualifiers: Gout site: unspecified site Gout etiology: idiopathic Chronicity: chronic Presence of tophus: without tophus Qualified Code(s): M1A.00X0 - Idiopathic chronic gout, unspecified site, without tophus (tophi) Plan 74-year-old male with a history of gout, well controlled on allopurinol, cirrhosis, allergic rhinitis presents to me for evaluation of pain. He reports that this pain is more so in the muscles, in his arms and his legs. He denies any specific joint pain. This muscle pain is not accompanied by any weakness. Patient has been on allopurinol for 10 years. He is currently on 100 mg daily he does not remember when his last gout attack was but reports it was years ago. Allopurinol may cause muscle pain without weakness, especially as patient has been on it for a long time. His last uric acid is 3.5 and he has not had a recent gout attack At this time I will check CK enzymes, inflammatory markers, thyroid function tests as well as a myositis panel, even though inflammatory myositis less likely as he does not exhibit any weakness. I will follow up with him in 3 weeks to discuss the results. If everything is negative at that time then I will do a trial of stopping allopurinol and monitoring him off of the medication. F up in 4 week Orders: Orders Erythrocyte Sedimentation Rate Today R76.0 - Raised antibody titer Thyroid Stimulating Hormone Today R76.0 - Raised antibody titer Thyroglobulin Antibodies Today R76.0 - Raised antibody titer MSA Panel 11 Myositis Spec Abs Today M1A.00X0 - Idiopathic chronic gout, unspecified site, without tophus (tophi), M79.10 - Myalgia, unspecified site C Reactive Protein Today R76.0 - Raised antibody titer CK, Total+Isoenzymes, Serum Today M1A.00X0 - Idiopathic chronic gout, unspecified site, without tophus (tophi), M79.10 - Myalgia, unspecified site Thyroid Peroxidase Antibodies Today R76.0 - Raised antibody titer Coding Level of Care Code New Pt Level 4 (51135) Diagnoses Muscle pain M79.10 Idiopathic chronic gout without tophus, unspecified site M1A.00X0 Gout site: unspecified site Gout etiology: idiopathic Chronicity: chronic Presence of tophus: without tophus
== END 2025-07-17 10:17 | disposition home or self-care (01) ==
LOC: HO.RHES 09:15
PROVIDERS: PCP Internal Medicine; Visit Provider Student in an Organized Health Care Education/Training Program
DX: M79.10 Myalgia, unspecified site (principal); M1A.00X0 Idiopathic chronic gout, unspecified site, without tophus (tophi)
CPT/HCPCS: 99204

== ENCOUNTER 2025-07-17 09:15 | Outpatient (REF) | payer OTHER, SELFPAY ==
[2025-07-17 16:31] LABS: Thyroid Stimulating Hormone 2.14 uIU/mL (0.32-4.0)
[2025-07-19 17:49] LABS: Thyroglobulin Antibodies <1 IU/mL (< or = 1)
== END 2025-07-17 09:16 | disposition home or self-care (01) ==
LOC: HO.HKASLDS 09:15
PROVIDERS: PCP Internal Medicine; Visit Provider Student in an Organized Health Care Education/Training Program
DX: Z01.84 Encounter for antibody response examination (principal); M1A.00X0 Idiopathic chronic gout, unspecified site, without tophus (tophi); M79.10 Myalgia, unspecified site; R76.0 Raised antibody titer; Z79.899 Other long term (current) drug therapy
CPT/HCPCS: 36415; 82552; 84182; 84443; 85652; 86140; 86235; 86376; 86800; 99202

== ENCOUNTER 2025-07-23 10:04 | Outpatient (REF) | payer OTHER, SELFPAY ==
[2025-07-23 10:25] LABS: MANUAL DIFF FLAG NO
[2025-07-23 10:51] LABS: Hematocrit 39.2 % (42.0-52.0); Hemoglobin 12.8 g/dl (14.0-18.0); Imm Gran Abs Auto 0.01 X10*3/uL (0.00-0.03); Imm Gran Pct Auto 0.2 % (0.0-0.4); Lymphocytes Absolute Auto 1.5 X10*3/uL (1.2-4.9); Mean Corpuscular HGB Conc 32.7 g/dl (31.0-36.0); Mean Corpuscular Hemoglobin 29.2 pg (27.0-33.0); Mean Corpuscular Volume 89.5 fL (80.0-98.0); NRBC Abs Auto 0.000 X10*3/uL (0.0-0.012); NRBC Pct Auto 0.0 /100WBC (0.0-0.2); Platelet Count 196 X10*3/uL (160-400); Red Blood Count 4.38 X10*6/uL (4.60-5.80); White Blood Count 5.6 X10*3/uL (4.8-10.8)
[2025-07-23 10:58] LABS: INTERNATIONAL NORM RATIO 1.0 (0.9-1.1); Prothrombin Time 12.1 SEC (11.2-13.5)
[2025-07-23 12:17] LABS: Alanine Aminotransferase 26 U/L (0-40); Albumin Level 4.0 g/dL (3.5-5.0); Alkaline Phosphatase 65 U/L (39-117); Aspartate Amino Transferase 38 U/L (5-37); Total Protein 7.2 g/dL (6.5-8.0)
--- OUTSIDE RECORDS SUMMARY | 2025-07-23 13:15 | XMS_ITS | Patient Health Record ---
Author Organization [facility] Address [address] [place] [address] Care Team Providers Care Chick Room Supervisor Name Role Phone Ivon Earl Primary Care Provider UnavailEzio Toure Unavailable [phone] Allergies No Known Allergies Results Component Value Reference Range Flag Notes Prothrombin Time INR (Not ye t reviewed by provider) Interpretation: Performing Lab:[facility], [address] [place] [phone] Notes/Report: Prothrombin Time 12.1 11.2-13.5 SEC N INTERNATIONAL NORM RATIO 1.0 0.9-1.1 N INTERNATIONAL NORMALIZED RATIO (INR) REFERENCE RANGES Reference [...] mechanical prosthetic heart valves: 2.5 - 3.5 Complete Blood Count Auto Di ff Reviewed date:08/15/2024 12:45:23 PM Interpretation: Performing Lab:[facility], [address] [place] [phone] Notes/Report: White Blood Count 5.0 4.8-10.8 X10*3/uL N Red Blood Count 4.47 4.60-5.80 X10*6/uL L Hemoglobin 13.2 14.0-18.0 g/dl L Hematocrit 40.4 42.0-52.0 % L Mean Corpuscular Volume 90.4 80.0-98.0 fL N Mean Corpuscular Hemoglobin 29.5 27.0-33.0 pg N Mean Corpuscular HGB Conc 32.7 31.0-36.0 g/dl N Red Cell Distribution Width 13.2 11.0-16.0 % N Platelet Count 186 160-400 X10*3/uL N Mean Platelet Volume 10.5 9.4-12.4 fL N Neutrophils Percent Auto 52.7 45-73 % N Imm Gran Pct Auto 0.2 0.0-0.4 % N Lymphocytes Percent Auto 27.8 20-40 % N Monocytes Percent Auto 11.1 2-11 % H Eosinophils Percent Auto 7.4 0-4 % H Basophils Percent Auto 0.8 0-2 % N NRBC Pct Auto 0.0 0.0-0.2 /100WBC N Neutrophils Absolute Auto 2.7 2.0-8.3 x10*3/uL N Imm Gran Abs Auto 0.01 0.00-0.03 X10*3/uL N Lymphocytes Absolute Auto 1.4 1.2-4.9 X10*3/uL N Monocytes Absolute Auto 0.6 0.1-1.2 X10*3/uL N Eosinophils Absolute Auto 0.4 0.0-0.4 X10*3/uL N Basophils Absolute Auto 0.0 0.0-0.2 X10*3/uL N NRBC Abs Auto 0.000 0.0-0.012 X10*3/uL N Prothrombin Time INR Reviewed date:08/15/2024 12:45:30 PM Interpretation: Performing Lab:[facility], [address] [place] [phone] Notes/Report: Prothrombin Time 11.8 10.9-12.4 SEC N INTERNATIONAL NORM RATIO 1.0 0.9-1.1 N INTERNATIONAL NORMALIZED RATIO (INR) REFERENCE RANGES Reference [...] Reviewed date:08/15/2024 12:45:38 PM Interpretation: Performing Lab:[address] [phone] Notes/Report: Bilirubin Total 0.9 0.0-1.0 mg/dL N Bilirubin Direct 0.3 0.0-0.5 mg/dL N Aspartate Amino Transferase 50 5-37 U/L H Alanine Aminotransferase 46 0-40 U/L H Total Protein 7.4 6.5-8.0 g/dL N Albumin Level 3.8 3.5-5.0 g/dL N Alkaline Phosphatase 79 39-117 U/L N Alpha Fetoprotein Reviewed date:08/17/2024 06:31:29 PM Interpretation: Performing Lab:[address] [phone] Notes/Report: Alpha Fetoprotein 2.0 <6.1 ng/mL N This test was performed using the [place] chemiluminescent method. Values obtained from different assay methods cannot be used interchangeably. AFP levels, regardless of value, should not be interpreted as absolute evidence of the presence or absence of disease. THIS TEST WAS PERFORMED AT: [facility] [address] [place] [phone] ALEX CHEUNG MD US abdomen complete Reviewed date:07/23/2025 09:52:24 AM Interpretation: Performing Lab: Notes/Report: [address] [address] Ultrasound Report Signed Patient: Daniel Dietz MR#: [id number] : 1950 Acct:[id number] Age/Sex: 73 / M ADM Date: 08/15/24 Loc: HO.US Attending Dr: Ezio Garcia MD Ordering Physician: Ezio Garcia MD Date of Service: 08/15/24 Procedure(s): US abdomen complete Accession Number(s): [id number] cc: Ivon Earl MD; Ezio Garcia MD [...] in OV> 08/16/24914 DD/ 3 TD/TT: 08/16/24913 Census Clerk: Complete Blood Count Auto Di ff (Not yet reviewed by provider) Interpretation: Performing Lab:[facility], [address] [place] [phone] Notes/Report: White Blood Count 5.6 4.8-10.8 X10*3/uL N Red Blood Count 4.38 4.60-5.80 X10*6/uL L Hemoglobin 12.8 14.0-18.0 g/dl L Hematocrit 39.2 42.0-52.0 % L Mean Corpuscular Volume 89.5 80.0-98.0 fL N Mean Corpuscular Hemoglobin 29.2 27.0-33.0 pg N Mean Corpuscular HGB Conc 32.7 31.0-36.0 g/dl N Red Cell Distribution Width 13.7 11.0-16.0 % N Platelet Count 196 160-400 X10*3/uL N Mean Platelet Volume 10.6 9.4-12.4 fL N Neutrophils Percent Auto 51.8 45-73 % N Imm Gran Pct Auto 0.2 0.0-0.4 % N Lymphocytes Percent Auto 27.0 20-40 % N Monocytes Percent Auto 13.7 2-11 % H Eosinophils Percent Auto 6.4 0-4 % H Basophils Percent Auto 0.9 0-2 % N NRBC Pct Auto 0.0 0.0-0.2 /100WBC N Neutrophils Absolute Auto 2.9 2.0-8.3 x10*3/uL N Imm Gran Abs Auto 0.01 0.00-0.03 X10*3/uL N Lymphocytes Absolute Auto 1.5 1.2-4.9 X10*3/uL N Monocytes Absolute Auto 0.8 0.1-1.2 X10*3/uL N Eosinophils Absolute Auto 0.4 0.0-0.4 X10*3/uL N Basophils Absolute Auto 0.1 0.0-0.2 X10*3/uL N NRBC Abs Auto 0.000 0.0-0.012 X10*3/uL N Liver Panel (Not yet reviewe d by provider) Interpretation: Performing Lab:[facility], [address] [place] [phone] Notes/Report: Bilirubin Total 0.8 0.0-1.0 mg/dL N Bilirubin Direct 0.3 0.0-0.5 mg/dL N Aspartate Amino Transferase 38 5-37 U/L H Alanine Aminotransferase 26 0-40 U/L N Total Protein 7.2 6.5-8.0 g/dL N Albumin Level 4.0 3.5-5.0 g/dL N Alkaline Phosphatase 65 39-117 U/L N Reason For Referral No Information Medications Medication SIG (Take, Route, Frequency, Duration) Notes Start Date End Date Status Ibuprofen 600 MG Tablet Oral; Duration: 26 Not-Takin g/PRN Fluocinonide 0.05 % Ointment APPLY THIN LAYER TO AFFECTED AREAS ON THE BACK TOPICALLY TWICE PER DAY FOR ONE WEEK BREAK FOR ONE WEEK REPEAT NEEDED External; Duration: 30 L2,Unavail able Active Motrin Active Omeprazole 40 MG Capsule Delayed Release 1 capsule 30 minutes before morning meal Orally Once a day; Duration: 30 day(s) Active Fish Oil 1000 MG Capsule 1 capsule Orally Once a day; Duration: 30 day(s) Active Dupixent 300 MG/2ML Solution Pen-injector Subcutaneous; Duration: 28 Active Folic Acid 1 MG Tablet 1 tablet Orally Once a day; Duration: 30 day(s) Active Losartan Potassium-HCTZ 100-25 MG Tablet 1 tablet Orally Once a day; Duration: 30 day(s) Active Allopurinol 100 MG Tablet 1 tablet Orally Once a day; Duration: 30 day(s) Active Immunizations Vaccine Route Administration Date Status Comme nts Influenza Unknown 06/10/2021 Administered Influenza Unknown 07/24/2024 Refused Social History Tobacco Use: Social History Observation Description Date Details (start date - stop date) Never Smoker NA - NA Social History Drug/Alcohol: Social Info Question Answer Notes AUDIT-C (Standard) Did you have a drink containing alcohol in the past year? 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 Problems Problem Type SNOMED Code ICD Code Onset Dates Problem Status W/U Status Risk Notes Problem Screening for malignant neoplasm of colon (262754568) Encounter for screening for malignant neoplasm of colon (Z12.11) Active confirmed Problem Alcoholic cirrhosis (559218260) Alcoholic cirrhosis of liver without ascites (K70.30) Active confirmed Problem Celiac disease (218702916) Celiac disease (K90.0) Active confirmed Problem History of gastrointestinal tract bypass (233147454) Intestinal bypass and anastomosis status (Z98.0) Active confirmed Problem History of malignant neoplasm of colon (649896324) History of colon cancer (Z85.038) Active confirmed Problem Diverticulosis of colon (098489855) Diverticulosis of colon (K57.30) Active confirmed Vital Signs Temperature 98.6 degrees Fahrenheit 07/24/2024 Blood pressure diastolic 01 mm Hg 07/23/2025 Height 64 in 07/23/2025 Blood pressure systolic 001 mm Hg 07/23/2025 Weight 210.2 lbs 07/23/2025 BMI 36.08 kg/m2 07/23/2025 Procedures Procedure Date Ordered Date Performed Result Body Sit e UPPER GI ENDOSCOPY 07/23/2025 N/A COLONOSCOPY 07/23/2025 N/A Encounters Encounter Location Date Provider Diagnosis [facility] [address] [place] [phone] 07/23/2025 Ezio Garcia Alcoholic cirrhosis of liver without ascites K70.30 ; Encounter for screening for malignant neoplasm of colon Z12.11 and History of colon cancer Z85.038 [facility] [address] [place] [address] 07/24/2024 Ezio Garcia History of colon cancer Z85.038 and Alcoholic cirrhosis of liver without ascites K70.30 [facility] [address] [place] [address] 07/23/2025 Ezio Garcia Assessments Encounter Date Diagnosis (ICD Code) Assessment Notes Treatment Notes Treatment Clinical Notes Section Notes 07/23/2025 Encounter for screening for malignant neoplasm of colon (ICD-10 - Z12.11) Overall, Daniel appears quite well. He does not show any sign of progressive liver disease. We did review that his long-term sobriety has obviously kept him very well. I did recommend a follow-up abdominal ultrasound and laboratories including an alpha-fetoprotei n level. We did review that this should be done yearly for the time being given his increased risk of hepatoma in regard to his underlying liver disease. I also recommended an upper endoscopy for evaluation of any sign of varices given the underlying cirrhosis and his last upper endoscopy being at least several years ago. He we will also have a follow-up screening colonoscopy on the same day given his history of colon cancer in himself and a brother, and his last colonoscopy being over 3 years ago in December 2021. We did review the rationale for that in regard to colorectal cancer prevention and/or early detection. Full consent has been obtained from him for both procedures, including risks of bleeding and perforation. The procedures will be done with monitored anesthesia care. He was advised to stop fish oil for 1 week before the procedure. Daniel and his son were comfortable with this plan. Thank you again for allowing me to participate in Daniel's care. I shall continue to keep you advised of his progress. 07/23/2025 Alcoholic cirrhosis of liver without ascites (ICD-10 - K70.30) Overall, Daniel appears quite well. He does not show any sign of progressive liver disease. We did review that his long-term sobriety has obviously kept him very well. I did recommend a follow-up abdominal ultrasound and laboratories including an alpha-fetoprotei n level. We did review that this should be done yearly for the time being given his increased risk of hepatoma in regard to his underlying liver disease. I also recommended an upper endoscopy for evaluation of any sign of varices given the underlying cirrhosis and his last upper endoscopy being at least several years ago. He we will also have a follow-up screening colonoscopy on the same day given his history of colon cancer in himself and a brother, and his last colonoscopy being over 3 years ago in December 2021. We did review the rationale for that in regard to colorectal cancer prevention and/or early detection. Full consent has been obtained from him for both procedures, including risks of bleeding and perforation. The procedures will be done with monitored anesthesia care. He was advised to stop fish oil for 1 week before the procedure. Daniel and his son were comfortable with this plan. Thank you again for allowing me to participate in Daniel's care. I shall continue to keep you advised of his progress. 07/24/2024 Alcoholic cirrhosis of liver without ascites [...] to keep you advised of his progress. 07/23/2025 History of colon cancer (ICD-10 - Z85.038) Overall, Daniel appears quite well. He does not show any sign of progressive liver disease. We did review that his long-term sobriety has obviously kept him very well. I did recommend a follow-up abdominal ultrasound and laboratories including an alpha-fetoprotei n level. We did review that this should be done yearly for the time being given his increased risk of hepatoma in regard to his underlying liver disease. I also recommended an upper endoscopy for evaluation of any sign of varices given the underlying cirrhosis and his last upper endoscopy being at least several years ago. He we will also have a follow-up screening colonoscopy on the same day given his history of colon cancer in himself and a brother, and his last colonoscopy being over 3 years ago in December 2021. We did review the rationale for that in regard to colorectal cancer prevention and/or early detection. Full consent has been obtained from him for both procedures, including risks of bleeding and perforation. The procedures will be done with monitored anesthesia care. He was advised to stop fish oil for 1 week before the procedure. Daniel and his son were comfortable with this plan. Thank you again for allowing me to participate in Daniel's care. I shall continue to keep you advised of his progress. Plan Of Treatment Pending Test Test Name Order Date UPPER GI ENDOSCOPY 07/23/2025 COLONOSCOPY 07/23/2025 LIVER PROFILE 07/23/2025 LIVER PROFILE 10/29/2021 LIVER PROFILE 07/19/2023 LIVER PROFILE 07/24/2024 CBC w DIFF 07/23/2025 CBC w DIFF 10/29/2021 CBC w DIFF 07/24/2024 PROTHROMBIN TIME (PT, INR) 10/29/2021 ALPHA-FETOPROTEIN,TUMOR MARKER 5 ALPHA-FETOPROTEIN,TUMOR MARKER 4 ALPHA-FETOPROTEIN,TUMOR MARKER 3 CELIAC PANEL #10 07/19/2023 US ABD 10/29/2021 Complete Blood Count Auto Diff 5 Prothrombin Time INR 07/24/2024 Prothrombin Time INR 07/23/2025 Liver Panel 07/23/2025 Alpha Fetoprotein 10/29/2021 US abdomen comp w elastography 5 US abdomen complete 07/19/2023 US abdomen complete 07/24/2024 Future Test Test Name Order Date COLONOSCOPY 10/29/2021 Next Appt Details Provider Name:Ezio Reddy Radha , 10/02/2025 07:30:00 AM, [address] [facility] , [place], [place], [phone], Insurance Providers Payer Name Payer Address Payer Phone Subscriber Number Group Number Insured Name Patient Relationship to Insured Coverage Start Date Coverage End Date [facility] [address] Attn Claims [place] [id number] DORADO LILLY DANIEL Self - patient is the insured Medical (General) History Medical History History ICD Code HTN Colon cancer- surgery in 2011-he denies any history of chemotherapy nor radiation treatments- he had negative colonoscopies with Dr. Montoya in September of 2020 and August of 2020 which are described as unremarkable but the preps in both procedures were described also as suboptimal Cirrhosis- EtOH- stopped 30 years ago- upper endoscopy in November of [address] Montoya was negative for varices. The report describes a gastrojejunostomy and some gastritis Denies NC,DM,CVA,Lung disease,renal dise ase Peptic ulcer disease with GI bleeding an d surgery as described below Negative screening colonoscopy in 12/2021 Reports a history of celiac disease but not on a gluten-free diet- negative laboratories for celiac disease in June of 2023 Gallstones, but asymptomatic - - reviewed with patient and his son at the 07/24/2024 OV Pain in muscles Surgical History Surgery Date(Month/Year) Colon cancer with surgery in [place] 2011 Ulcer surgery 30 yrs ago- reports remova l of part of the stomach
--- OUTSIDE RECORDS SUMMARY | 2025-07-23 13:15 | XMS_ITS | Clinical Summary ---
Author Organization [employer] Address [address] [place] [address] [address] [place] [address] Care Team Providers Care Gas Producer Name Role Phone Unavailable Primary Care Provider [...] LDL-C. Chaparro AZEVEDO et al. DREW. 2013;310(19): 7100-7887 (http://education.Attendify.Vehcon/faq/OET421) Non-HDL Cholesterol 113 <130 mg/dL (calc) [facility] Comment: For patients with diabetes plus 1 major ASCVD risk factor, treating to a non-HDL-C goal of <100 mg/dL (LDL-C of <70 mg/dL) is considered a therapeutic option. Triglycerides 53 <150 mg/dL [facility] 07/30/2020 9:36 AM EST us Atif Smith MD LAB BLOOD ORDERABLES Final Result [facility] [address] [place] [address], from Last 3 Months or Most Recently Relevant to Health Maintenance
== END 2025-07-23 10:05 | disposition home or self-care (01) ==
LOC: HO.LAB 10:04
PROVIDERS: PCP Internal Medicine; Visit Provider Internal Medicine
DX: K70.30 Alcoholic cirrhosis of liver without ascites (principal)
CPT/HCPCS: 36415; 80076; 82105; 85025; 85610